=== PATIENT | male | born 1970 | race African-American/Black ===

== ENCOUNTER 2020-06-14 11:03 | Outpatient (REF) | payer OTHER, SELFPAY ==
[2020-06-14 12:40] LABS: MANUAL DIFF FLAG NO
[2020-06-14 12:48] LABS: Basophils Percent Auto 0.8 % (0-2); Eosinophils Absolute Auto 0.1 X10*3/uL (0.0-0.4); Eosinophils Percent Auto 1.2 % (0-4); Hematocrit 43.4 % (42-52); Hemoglobin 14.1 g/dl (14.0-18.0); Imm Gran Abs Auto 0.01 X10*3/uL (0.00-0.03); Imm Gran Pct Auto 0.2 % (0.0-0.4); Lymphocytes Absolute Auto 2.4 X10*3/uL (1.2-4.9); Mean Corpuscular HGB Conc 32.5 g/dl (31.0-36.0); Mean Corpuscular Hemoglobin 28.4 pg (27.0-33.0); Mean Corpuscular Volume 87.3 fL (80-98); Mean Platelet Volume 10.7 fL (9.4-12.4); Monocytes Absolute Auto 0.5 X10*3/uL (0.1-1.2); Monocytes Percent Auto 9.4 % (2-11); Neutrophils Absolute Auto 2.1 X10*3/uL (2.0-8.3); Neutrophils Percent Auto 40.4 % (45-73); Platelet Count 295 X10*3/uL (160-400); Red Blood Count 4.97 X10*6/uL (4.60-5.80); Red Cell Distribution Width 12.6 % (11.0-16.0); White Blood Count 5.1 X10*3/uL (4.8-10.8)
[2020-06-14 13:02] LABS: Estimated Average Glucose 237 mg/dL; Hemoglobin A1c % 9.9 %
[2020-06-14 13:30] LABS: Anion Gap 11 (12-20); Blood Urea Nitrogen 12 mg/dL (9-16); Calcium 9.4 mg/dL (8.4-10.2); Carbon Dioxide 31 mmol/L (22-29); Chloride 101 mmol/L (96-108); Cholesterol 206 mg/dL; Estimated Glomerular Filt Rate 57; Glucose Fasting 92 mg/dL (60-99); HDL Cholesterol 43 mg/dL; LDL Cholesterol Calculated 137 mg/dl; Potassium 4.1 mmol/l (3.3-5.1); Sodium 139 mmol/L (135-145); Triglycerides 132 mg/dL
[2020-06-14 13:41] LABS: TSH reflex Free T4 1.28 mIU/mL (0.32-4.0)
== END 2020-06-14 11:04 | disposition home or self-care (01) ==
LOC: HO.LAB 11:03
PROVIDERS: PCP Nurse Practitioner Family; Visit Provider Nurse Practitioner Family
DX: G47.30 Sleep apnea, unspecified (principal); E11.9 Type 2 diabetes mellitus without complications; Z83.42 Family history of familial hypercholesterolemia; Z83.49 Family history of other endocrine, nutritional and metabolic diseases
CPT/HCPCS: 36415; 80048; 80061; 83036; 84443; 85025

== ENCOUNTER 2020-09-17 11:37 | Outpatient (REF) | payer OTHER, SELFPAY ==
[2020-09-17 13:54] LABS: Basophils Absolute Auto 0.1 X10*3/uL (0.0-0.2); Eosinophils Percent Auto 0.6 % (0-4); Hematocrit 45.7 % (42-52); Hemoglobin 15.4 g/dl (14.0-18.0); Imm Gran Abs Auto 0.01 X10*3/uL (0.00-0.03); Imm Gran Pct Auto 0.2 % (0.0-0.4); Lymphocytes Absolute Auto 2.4 X10*3/uL (1.2-4.9); Lymphocytes Percent Auto 49.2 % (20-40); MANUAL DIFF FLAG NO; Mean Corpuscular HGB Conc 33.7 g/dl (31.0-36.0); Mean Corpuscular Hemoglobin 28.2 pg (27.0-33.0); Mean Corpuscular Volume 83.7 fL (80-98); Mean Platelet Volume 12.5 fL (9.4-12.4); Monocytes Absolute Auto 0.4 X10*3/uL (0.1-1.2); Monocytes Percent Auto 7.5 % (2-11); Neutrophils Percent Auto 41.5 % (45-73); Platelet Count 267 X10*3/uL (160-400); Red Blood Count 5.46 X10*6/uL (4.60-5.80); White Blood Count 4.9 X10*3/uL (4.8-10.8)
[2020-09-17 14:38] LABS: Creatinine Urine 52.13 mg/dL; Microalbum/Creatinine Ratio Ur 15.3 ug/mg cr
[2020-09-17 15:05] LABS: Anion Gap 14 (12-20); Carbon Dioxide 28 mmol/L (22-29); Chloride 97 mmol/L (96-108); Potassium 4.8 mmol/L (3.3-5.1); Sodium 134 mmol/L (135-145)
[2020-09-17 15:06] LABS: Alanine Aminotransferase 21 U/L (0-40); Albumin Level 4.4 g/dL (3.5-5.0); Alkaline Phosphatase 140 U/L (39-117); Aspartate Amino Transferase 14 U/L (5-37); Bilirubin Total 0.4 mg/dL (0.0-1.0); Blood Urea Nitrogen 18 mg/dL (9-16); Calcium 10.2 mg/dL (8.4-10.2); Cholesterol 331 mg/dL; Estimated Glomerular Filt Rate 49; HDL Cholesterol 35 mg/dL; LDL Cholesterol Calculated 226 mg/dl; Total Protein 8.3 g/dL (6.5-8.0); Triglycerides 352 mg/dL
[2020-09-17 15:14] LABS: Hemoglobin A1c % > 14.0 %
[2020-09-17 15:25] LABS: Glucose Fasting 502 mg/dL (60-99)
== END 2020-09-17 11:38 | disposition home or self-care (01) ==
LOC: HO.HMGCLDS 11:37
PROVIDERS: PCP Internal Medicine; Visit Provider Internal Medicine
DX: Z00.00 Encounter for general adult medical examination without abnormal findings (principal); E11.9 Type 2 diabetes mellitus without complications
CPT/HCPCS: 36415; 80053; 80061; 82043; 83036; 85025

== ENCOUNTER → 2020-09-25 13:56 | Outpatient (BNVA) | payer OTHER, SELFPAY | PROVIDERS: Visit Provider Nurse Practitioner Family ==

== ENCOUNTER 2020-11-19 14:22 | Outpatient (REF) | payer OTHER, SELFPAY ==
[2020-11-19 15:38] LABS: Estimated Average Glucose 301 mg/dL; Hemoglobin A1c % 12.1 %
[2020-11-19 15:44] LABS: Anion Gap 15 (12-20); Blood Urea Nitrogen 12 mg/dL (9-16); Calcium 10.1 mg/dL (8.4-10.2); Carbon Dioxide 27 mmol/L (22-29); Chloride 101 mmol/L (96-108); Estimated Glomerular Filt Rate 54; Glucose Fasting 172 mg/dL (60-99); Potassium 4.4 mmol/L (3.3-5.1); Sodium 139 mmol/L (135-145)
== END 2020-11-19 14:23 | disposition home or self-care (01) ==
LOC: HO.LAB 14:22
PROVIDERS: PCP Internal Medicine; Visit Provider Internal Medicine
DX: E11.9 Type 2 diabetes mellitus without complications (principal)
CPT/HCPCS: 36415; 80048; 83036

== ENCOUNTER → 2020-11-28 10:17 | Outpatient (BNVA) | payer OTHER, SELFPAY | PROVIDERS: PCP Internal Medicine; Visit Provider Internal Medicine ==

== ENCOUNTER 2020-11-30 11:12 | Day surgery (SDC) | payer OTHER, SELFPAY ==
[2020-11-13 14:41] VITALS: BMI 40.3
--- NOTE | 2020-11-29 09:54 | P.CONAN_ITS ---
Documented by User: Lexi Osorio 11/29/20 09:55 HPI - Anesthesia Eval Consult details Narrative: 50yo M for Upper Endoscopy and Colonoscopy [facility] Active Problems Active Problems: All Active Problems (Updated 11/28/20 @ 11:03 by Karen Perera DO) Vitamin D deficiency (Acute) HLD (hyperlipidemia) (Acute) HTN (hypertension) (Acute) T2DM (type 2 diabetes mellitus) (Acute) Diabetes mellitus (Acute) Sleep apnea syndrome (Acute) Family history of thyroid disease (Acute) Family history of high cholesterol (Acute) Skin rash (Acute) Diabetes (Acute) Past Medical History Medical History Diabetes Diabetes mellitus Family history of high cholesterol Family history of thyroid disease HLD (hyperlipidemia) HTN (hypertension) HTN (hypertension) Hx of bipolar disorder Skin rash Sleep apnea syndrome T2DM (type 2 diabetes mellitus) Vitamin D deficiency Family History Family History Mother Diabetic acidosis, type II Father Diabetic acidosis, type II Surgical History Surgical History Hx of circumcision Hx of exploratory laparotomy Social History Social History Are you a primary career coordinator to a significant other at home: No Do you presently have visiting nurse or other home services: Yes Alcohol intake: unknown Smoking Status: Current every day smoker Tobacco Type: Cigarette Cigarettes Per Day: 10 Years Smoked: 30 Use of substances other than those prescribed or required for medical reasons: No Have you been hit, kicked, punched, or otherwise hurt by someone within the past year? If so, by whom?: No Are you DNR?: No Advance Directives Information Provided: No Recently lost weight without trying: No Eating poorly because of decreased appetite: No Nutrition Risks: No Nutritional Risk Poor oral hygiene: No Current occupational status: unemployed Meds Allergies Allergy/AdvReac Type Severity Reaction Status Date / Time No Known Allergies Allergy Verified 11/28/20 10:40 Active Medications: Current Medications Generic Name Dose Route Start Last Admin Trade Name Freq PRN Reason Stop Dose Admin Lactated Ringer's 1,000 mls @ 50 mls/hr 11/15/20 07:30 Lr IV .Q20H [facility] Home Medications Medication Instructions Recorded Confirmed Last Taken Type acetaminophen 650 mg 650 mg PO Q8H tab 06/14/20 11/28/20 Unknown History tablet,extended release blood glucose control, low #1 ea 06/14/20 09/26/20 Unknown History docusate sodium 100 mg capsule 100 mg PO BID PRN 06/14/20 11/28/20 Unknown History hydroxyzine HCl 50 mg tablet 50 mg PO Q4H tab 06/14/20 11/28/20 Unknown History ibuprofen 600 mg tablet 600 mg PO Q6H PRN 06/14/20 11/28/20 Unknown History magnesium hydroxide 2,400 mg/10 mL 5 ml PO DAILY PRN 06/14/20 11/28/20 Unknown History oral suspension melatonin 5 mg capsule 5 mg PO BEDTIME cap 06/14/20 11/28/20 Unknown History multivitamin with minerals 1 tab PO DAILY 06/14/20 11/28/20 Unknown History naloxone 4 mg/actuation nasal spray 4 mg INTRANASAL . NEEDED PRN ea 06/14/20 11/28/20 Unknown History risperidone 1 mg tablet 1 mg PO BID 06/14/20 11/28/20 Unknown History sertraline 100 mg tablet 100 mg PO DAILY 06/14/20 11/28/20 11/30/20 History trazodone 100 mg tablet 150 mg PO BEDTIME PRN 10/04/20 11/28/20 Unknown History benztropine 0.5 mg tablet 0.5 mg PO DAILY PRN 11/28/20 11/28/20 Unknown History guaifenesin 200 mg/5 mL oral liquid 200 mg PO Q4H PRN 11/28/20 11/28/20 Unknown History Exam Exam Date and Time: November 29, 2020 0954 Height,Weight and Vital Signs: Height 5 ft 8 in Weight 120.202 kg Pertinent Lab Results Pertinent Lab Results: Laboratory Tests 09/17/20 11/19/20 11:45 14:32 WBC 4.9 Hgb 15.4 Hct 45.7 Plt Count 267 Sodium 139 Potassium 4.4 Chloride 101 Carbon Dioxide 27 BUN 12 Creatinine 1.38 Assessment and Plan Assessment Anesthesia Assessment: Chart Reviewed Documented by User: Addie Muñoz 11/30/20 12:19 [facility] Past Medical History Medical History Diabetes Diabetes mellitus Family history of high cholesterol Family history of thyroid disease HLD (hyperlipidemia) HTN (hypertension) HTN (hypertension) Hx of bipolar disorder Skin rash Sleep apnea syndrome T2DM (type 2 diabetes mellitus) Vitamin D deficiency Family History Family History Mother Diabetic acidosis, type II Father Diabetic acidosis, type II Surgical History Surgical History Hx of circumcision Hx of exploratory laparotomy Social History Social History Are you a primary career coordinator to a significant other at home: No Do you presently have visiting nurse or other home services: Yes Alcohol intake: unknown Smoking Status: Current every day smoker Tobacco Type: Cigarette Cigarettes Per Day: 10 Years Smoked: 30 Use of substances other than those prescribed or required for medical reasons: No Have you been hit, kicked, punched, or otherwise hurt by someone within the past year? If so, by whom?: No Are you DNR?: No Advance Directives Information Provided: No Recently lost weight without trying: No Eating poorly because of decreased appetite: No Nutrition Risks: No Nutritional Risk Poor oral hygiene: No Current occupational status: unemployed Meds Allergies Allergy/AdvReac Type Severity Reaction Status Date / Time No Known Allergies Allergy Verified 11/28/20 10:40 Home Medications Medication Instructions Recorded Confirmed Last Taken Type acetaminophen 650 mg 650 mg PO Q8H tab 06/14/20 11/28/20 Unknown History tablet,extended release blood glucose control, low #1 ea 06/14/20 09/26/20 Unknown History docusate sodium 100 mg capsule 100 mg PO BID PRN 06/14/20 11/28/20 Unknown History hydroxyzine HCl 50 mg tablet 50 mg PO Q4H tab 06/14/20 11/28/20 Unknown History ibuprofen 600 mg tablet 600 mg PO Q6H PRN 06/14/20 11/28/20 Unknown History magnesium hydroxide 2,400 mg/10 mL 5 ml PO DAILY PRN 06/14/20 11/28/20 Unknown History oral suspension melatonin 5 mg capsule 5 mg PO BEDTIME cap 06/14/20 11/28/20 Unknown History multivitamin with minerals 1 tab PO DAILY 06/14/20 11/28/20 Unknown History naloxone 4 mg/actuation nasal spray 4 mg INTRANASAL . NEEDED PRN ea 06/14/20 11/28/20 Unknown History risperidone 1 mg tablet 1 mg PO BID 06/14/20 11/28/20 Unknown History sertraline 100 mg tablet 100 mg PO DAILY 06/14/20 11/28/20 11/30/20 History trazodone 100 mg tablet 150 mg PO BEDTIME PRN 10/04/20 11/28/20 Unknown History benztropine 0.5 mg tablet 0.5 mg PO DAILY PRN 11/28/20 11/28/20 Unknown History guaifenesin 200 mg/5 mL oral liquid 200 mg PO Q4H PRN 11/28/20 11/28/20 Unknown History Exam Airway Mallampati Class: III (Full goyal) TM Dist: >3cm Neck ROM: Full Loose/Missing/Broken Teeth: No Heart: RRR Lungs: CTA Assessment and Plan Assessment Anesthesia Assessment: Anesthesia Plan Discussed and Chart Reviewed Final Anesthetic Review NPO: Yes ASA Class: III Final Preanesthetic Review: Meds/Allgs Chart Reviewed, Consent Obtained/Reviewed and Anes Risks/Benef Reviewed Patient Risk: Intermediate Procedure Risk: Intermediate Anesthetic Plan Anesthetic Plan: MAC: Disposition: Standard PACU
[2020-11-30 11:14] VITALS: BP 104/67; PULSE 73; RESP 20; TEMP 36.1; O2SAT 97
[2020-11-30 11:26] LABS: Glucose, Whole Blood 92 mg/dL (60-115)
[2020-11-30] MEDS: Lactated Ringers 1,000 ML 50 ML IV (11:37)
--- NOTE | 2020-11-30 12:38 | P.OP_ITS ---
Operative Note Operative Note Date of Service: 11/30/20 Narrative: Pre-op diagnosis: Colon cancer screening, GERD, dyspepsia Post-op diagnosis: other (GERD, Gastritis, Poor colon prep.) Procedure: FLEXIBLE TRANSORAL UPPER GASTROINTESTINAL ENDOSCOPY WITH BIOPSIES AND INCOMPLETE COLONOSCOPY TILL MID TRANSVERSE COLON UPPER ENDOSCOPY Consent: Indications for the procedure and potential complications of bleeding, perforation, reaction to medications and missed diagnosis were discussed with the patient and informed consent was obtained. Instrument: Olympus GIF H 190 mid size upper endoscope Monitoring: Vital signs and clinical assessment, continuous EKG monitoring, Pulse oximetry, Carbon Dioxide monitoring and blood pressure monitoring were done throughout the procedure. Procedure: The patient was placed in the left lateral decubitis position and pre-procedure medications were administered and a bite block was placed. The endoscope was inserted into the mouth and advanced under direct vision to the third part of duodenum. A careful inspection was made as the upper endoscope was withdrawn including a retroflexed examination of the proximal stomach; Findings and interventions are described below. Findings: Larynx: Normal Esophagus: GE junction at 40 cms. Irregular Z line - biopsied to check for Berrios's. Stomach: Moderate diffuse gastric erythema. Biopsies were obtained from the antrum and body of the stomach. Grade 2 flap valve on retroflexed examination of the cardia. Duodenum: Normal bulb and descending duodenum. Biopsies obtained from the 3rd part of duodenum Intervention: Biopsies as noted above COLONOSCOPY PROCEDURE NOTE Consent: Indications for the procedure and potential complications of bleeding, perforation, reaction to medications and missed diagnosis were discussed with the patient and informed consent was obtained. Instrument: Olympus PCF H 190 L variable stiffness pediatric colonoscope Monitoring: Vital signs and clinical assessment, intermittent blood pressure monitoring, continuous EKG monitoring, Pulse oximetry and Carbon Dioxide monitoring were done throughout the procedure. Procedure: The patient was placed in the left lateral decubitis position and pre-procedure medications were administered. After a digital rectal examination of the ano-rectum, the video colonoscope was inserted into the rectum and advanced through the colon to the cecum. The colonoscope was slowly withdrawn in a retrograde panoramic fashion and the colon mucosa was carefully examined including a retroflexed view of the rectum. Findings and interventions are described below. Procedure Difficulty: : Colon was long and tortuous and there was recurrent formation. LLQ pressure was applied to intubate the ascending colon. It was not possible to advanced further due to looping and poor colon prep Findings: Terminal Ileum: Not evaluated Cecum: Not evaluated Ascending Colon: Not evaluated Transverse Colon: Partially evaluated due to suboptimal prep Descending Colon: Partially evaluated due to suboptimal prep Sigmoid Colon: Partially evaluated due to suboptimal prep Rectum: Partially evaluated due to suboptimal prep Colon preparation: poor Impression and Post Procedure Diagnosis: Endoscopy Findings: ESOPHAGUS: Irregular Z line - biopsied to check for Berrios's. STOMACH: Gastritis DUODENUM: Normal - biopsied to check for celiac sprue Colonoscopy Findings: Incomplete colonoscopy till mid transverse colon. Colon was partially evaluated due to suboptimal prep despite copious irrigation. Plan: Await pathology results Patient has an appointment on in the GI Clinic with Daniella Murillo FNP- [facility] . Repeat Colonoscopy in 4 to 6 months with 2 day prep (adult colonoscope for future colonoscopy) versus stool FIT test and if negative, repeat colonoscopy in 5 years. Above findings were reviewed with the patient and GERD and Gastritis handouts were given in the discharge area Surgeon: Tatum Harrison MD Anesthesia: MAC (Montse Currie CRNA) Was an Tip Banding Machine Operator used for this Procedure?: No Tip Banding Machine Operator: Duarte Grewal Estimated blood loss (mL): 0 Pathology: other (A- SMALL BOWEL BXS R/O CELIAC B- GASTRIC ANTRUM BXS C- GASTRIC BODY BXS D- DISTAL ESOPHAGUS BXS R/O BERRIOS'S) Condition: stable Disposition: PACU
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
[2020-11-30 13:37] VITALS: BP 93/73; PULSE 78; RESP 14; TEMP 36.4; O2SAT 98
[2020-11-30 13:52] VITALS: BP 115/77; PULSE 80; RESP 18; TEMP 36.4; O2SAT 97
== END 2020-11-30 14:16 ==
LOC: HO.SSS 11:12
PROVIDERS: PCP Internal Medicine; Visit Provider Internal Medicine Gastroenterology
PROC: (CPT 45378; principal; 2020-11-30 12:40)
DX: Z12.11 Encounter for screening for malignant neoplasm of colon (principal); K56.2 Volvulus; K21.9 Gastro-esophageal reflux disease without esophagitis; K29.50 Unspecified chronic gastritis without bleeding; B96.81 Helicobacter pylori [H. pylori] as the cause of diseases classified elsewhere; K22.8 Other specified diseases of esophagus; Z87.828 Personal history of other (healed) physical injury and trauma; F31.9 Bipolar disorder, unspecified; I10 Essential (primary) hypertension; G47.33 Obstructive sleep apnea (adult) (pediatric); E11.9 Type 2 diabetes mellitus without complications; Z79.4 Long term (current) use of insulin; Z99.89 Dependence on other enabling machines and devices; Z79.899 Other long term (current) drug therapy; F17.210 Nicotine dependence, cigarettes, uncomplicated
CPT/HCPCS: 45378; 43239; 82947; 88305; 88342; J2405; J3010

== ENCOUNTER 2020-12-04 09:43 | Outpatient (REF) | payer OTHER, SELFPAY ==
[2020-12-04 11:06] LABS: Alanine Aminotransferase 25 U/L (0-40); Albumin Level 4.3 g/dL (3.5-5.0); Alkaline Phosphatase 139 U/L (39-117); Anion Gap 15 (12-20); Aspartate Amino Transferase 20 U/L (5-37); Bilirubin Total 0.5 mg/dL (0.0-1.0); Blood Urea Nitrogen 12 mg/dL (9-16); Carbon Dioxide 28 mmol/L (22-29); Chloride 102 mmol/L (96-108); Cholesterol 189 mg/dL; Estimated Glomerular Filt Rate > 60; Glucose Random 97 mg/dL (60-115); HDL Cholesterol 44 mg/dL; LDL Cholesterol Calculated 120 mg/dl; Potassium 4.8 mmol/L (3.3-5.1); Sodium 140 mmol/L (135-145); Total Protein 7.8 g/dL (6.5-8.0); Triglycerides 129 mg/dL
[2020-12-04 11:28] LABS: Vitamin D 25-OH Total 28.4 ng/mL (>30)
[2020-12-04 11:54] LABS: Microalbum/Creatinine Ratio Ur 3.7 ug/mg cr
[2020-12-05 07:55] LABS: HIV AB/AG Nonreactive (Nonreactive); HIV Num 1 0.04 S/CO (0.00-0.99)
[2020-12-05 12:44] LABS: LDL Cholesterol Direct 105 mg/dL (<100)
== END 2020-12-04 09:44 | disposition home or self-care (01) ==
LOC: HO.LAB 09:43
PROVIDERS: Absent Provider Internal Medicine; PCP Internal Medicine; Visit Provider Internal Medicine
DX: E11.65 Type 2 diabetes mellitus with hyperglycemia (principal); Z79.4 Long term (current) use of insulin; E55.9 Vitamin D deficiency, unspecified; Z20.2 Contact with and (suspected) exposure to infections with a predominantly sexual mode of transmission
CPT/HCPCS: 36415; 80053; 80061; 82043; 82306; 83721; 87389

== ENCOUNTER → 2021-01-07 09:56 | Outpatient (BNVA) | payer OTHER, SELFPAY | PROVIDERS: PCP Internal Medicine; Visit Provider Nurse Practitioner Family | DX: K59.00 Constipation, unspecified (principal); K21.9 Gastro-esophageal reflux disease without esophagitis; Z98.890 Other specified postprocedural states; Z79.899 Other long term (current) drug therapy | CPT/HCPCS: 99212 ==

== ENCOUNTER → 2021-01-24 11:12 | Outpatient (BNVA) | payer OTHER, SELFPAY | PROVIDERS: PCP Internal Medicine; Visit Provider Dietitian, Registered | DX: E11.65 Type 2 diabetes mellitus with hyperglycemia (principal); Z79.4 Long term (current) use of insulin | CPT/HCPCS: 97802 ==

== ENCOUNTER 2021-01-30 09:25 | Outpatient (REF) | payer OTHER, SELFPAY ==
--- NOTE | ~2021-01-30 | XR_ITS ---
EXAMINATION: XR KNEE, RIGHT XR KNEE, LEFT CLINICAL INFORMATION: Right knee pain. COMPARISON: None TECHNIQUE: AP standing views of both knees. [place] and lateral views of both knees. FINDINGS: RIGHT KNEE: There is no evidence of acute fracture or dislocation of the right knee. There is crescent-shaped ossification about the medial femoral condyle consistent with previous medial collateral ligament injury. Joint spaces are maintained. No significant effusion is appreciated. There is some spurring about the anterior tuberosity of the tibia without associated soft tissue swelling consistent with sequela of [place]-Schlatter disease. There is minimal spurring about the lateral facet of the patella. LEFT KNEE: Left knee joint spaces are maintained. No acute fracture or dislocation is evident. No significant effusion is seen. Sequela of [place]-Schlatter disease seen without overlying soft tissue swelling. There is some mild spurring lateral facet of the patella. XR/XR knee RT 2V IMPRESSION: Mild degenerative change patellofemoral joints bilaterally. Sequela of previous right medial collateral ligament injury.
--- NOTE | ~2021-01-30 | XR_ITS ---
EXAMINATION: XR KNEE, RIGHT XR KNEE, LEFT CLINICAL INFORMATION: Right knee pain. COMPARISON: None TECHNIQUE: AP standing views of both knees. [place] and lateral views of both knees. FINDINGS: RIGHT KNEE: There is no evidence of acute fracture or dislocation of the right knee. There is crescent-shaped ossification about the medial femoral condyle consistent with previous medial collateral ligament injury. Joint spaces are maintained. No significant effusion is appreciated. There is some spurring about the anterior tuberosity of the tibia without associated soft tissue swelling consistent with sequela of [place]-Schlatter disease. There is minimal spurring about the lateral facet of the patella. LEFT KNEE: Left knee joint spaces are maintained. No acute fracture or dislocation is evident. No significant effusion is seen. Sequela of [place]-Schlatter disease seen without overlying soft tissue swelling. There is some mild spurring lateral facet of the patella. XR/XR knee LT 2V IMPRESSION: Mild degenerative change patellofemoral joints bilaterally. Sequela of previous right medial collateral ligament injury.
--- NOTE | ~2021-01-30 | XR_ITS ---
EXAMINATION: XR KNEE, RIGHT XR KNEE, LEFT CLINICAL INFORMATION: Right knee pain. COMPARISON: None TECHNIQUE: AP standing views of both knees. [place] and lateral views of both knees. FINDINGS: RIGHT KNEE: There is no evidence of acute fracture or dislocation of the right knee. There is crescent-shaped ossification about the medial femoral condyle consistent with previous medial collateral ligament injury. Joint spaces are maintained. No significant effusion is appreciated. There is some spurring about the anterior tuberosity of the tibia without associated soft tissue swelling consistent with sequela of [place]-Schlatter disease. There is minimal spurring about the lateral facet of the patella. LEFT KNEE: Left knee joint spaces are maintained. No acute fracture or dislocation is evident. No significant effusion is seen. Sequela of [place]-Schlatter disease seen without overlying soft tissue swelling. There is some mild spurring lateral facet of the patella. XR/XR knee standing BI IMPRESSION: Mild degenerative change patellofemoral joints bilaterally. Sequela of previous right medial collateral ligament injury.
== END 2021-01-30 09:26 | disposition home or self-care (01) ==
LOC: HO.HOSX 09:25
PROVIDERS: Visit Provider Orthopaedic Surgery
DX: M22.2X1 Patellofemoral disorders, right knee (principal); M22.2X2 Patellofemoral disorders, left knee
CPT/HCPCS: 73560; 73565; 99202

== ENCOUNTER 2021-08-10 13:27 | Emergency (ER) | payer OTHER, SELFPAY ==
--- NOTE | ~2021-08-10 | XR_ITS ---
EXAMINATION: XR CHEST CLINICAL INFORMATION: SOB and cough COMPARISON: None TECHNIQUE: Frontal view of the chest was obtained. FINDINGS: No significant abnormality is noted involving the heart, lungs, mediastinum, bony thorax or soft tissues. XR/XR chest 1V IMPRESSION: Unremarkable chest examination.
[2021-08-10 13:48] VITALS: BP 113/76; BP 136/86; PULSE 100; PULSE 91; RESP 18; TEMP 36.8; O2SAT 98; BMI 38.0
[2021-08-10 14:06] LABS: COVID-19 Test Positive (Negative); IDNOW Serial# 9DD0AD1C
--- NOTE | 2021-08-10 15:48 | ED_ITS ---
HPI - URI/Sore Throat General Chief Complaint: Upper Respiratory Symptoms Stated Complaint: COVID SX'S Time Seen by Provider: 08/10/21 15:48 Source: patient Mode of arrival: ambulatory Limitations: no limitations History of Present Illness HPI Narrative: This is a 51-year-old male phx HTN, DM, obseity, presenting to the emergency department with complaints of cough, fever, malaise, body aches x4 days. Patient tells me that he is coughing up a thick green/yellow sputum. He is not vaccinated against COVID-19 he tells me I do not believe in the government . He denies any sick contacts. He is also requesting to get treated for chlamydia/gonorrhea prophylactically as 1 of his partners tested positive and was treated. He denies any penile discharge, fevers, chills, nausea, vomiting, chest pain, shortness of breath. Patient tells me his main concern today is his cough. MD elicited complaint: fever and cough Onset (ago): day(s) (4) Consistency: constant Severity: moderate Description of mucous: yellow and green Able to tolerate fluids by mouth: Yes Exacerbating factors: nothing Relieving factors: nothing Associated symptoms: denies other symptoms Treatments prior to arrival: none Related Data Home Medications Medication Instructions Recorded Confirmed acetaminophen 650 mg 650 mg PO Q8H tab 06/14/20 02/19/21 tablet,extended release blood glucose control, low #1 ea 06/14/20 02/19/21 ibuprofen 600 mg tablet 600 mg PO Q6H PRN 06/14/20 02/19/21 magnesium hydroxide 2,400 mg/10 mL 5 ml PO DAILY PRN 06/14/20 02/19/21 oral suspension (Milk Of Magnesia Concentrated) melatonin 5 mg capsule 5 mg PO BEDTIME cap 06/14/20 02/19/21 multivitamin with minerals 1 tab PO DAILY 06/14/20 02/19/21 risperidone 1 mg tablet (Risperdal) 1 mg PO BID 06/14/20 02/19/21 benztropine 0.5 mg tablet 0.5 mg PO DAILY PRN 11/28/20 02/19/21 guaifenesin 200 mg/5 mL oral liquid 200 mg PO Q4H PRN 11/28/20 02/19/21 diphenhydramine HCl 50 mg capsule 50 mg PO BEDTIME PRN 12/04/20 02/19/21 risperidone 2 mg tablet mg PO 12/04/20 02/19/21 varenicline 0.5 mg (11)-1 mg (42) 0 ea PO 01/07/21 02/19/21 tablets in a dose pack Previous Rx's Medication Instructions Recorded triamcinolone acetonide 0.1 % 1 appl TOPICAL BID 30 Days #30 g 09/27/20 topical cream atorvastatin 40 mg tablet 40 mg PO DAILY 30 Days #30 tab 11/28/20 flash glucose scanning reader #1 ea 11/28/20 (FreeStyle Antonia 2 [place]) flash glucose sensor (FreeStyle #2 ea 11/28/20 Antonia 2 Sensor) omeprazole 20 mg capsule,delayed 20 mg PO BID 10 Days #20 cap 12/03/20 release docusate sodium 100 mg capsule 100 mg PO BID PRN #60 cap 01/07/21 (Colace) sennosides 8.6 mg tablet (Natural 8.6 mg PO BEDTIME PRN #30 tab 01/07/21 Senna Laxative) betamethasone dipropionate 0.05 % 1 appl TOPICAL BID PRN #45 g 01/17/21 topical cream metformin 500 mg tablet,extended 500 mg PO BID 30 Days #60 tab 01/27/21 release 24 hr diclofenac sodium 75 mg 75 mg PO BID #60 tab 01/30/21 tablet,delayed release dulaglutide 0.75 mg/0.5 mL 0.75 mg (0.5 mL) SUBCUT QWEEK 28 02/21/21 subcutaneous pen injector Days #2 ml (Trulicity) amlodipine 5 mg tablet 5 mg PO DAILY #30 tab 03/06/21 trazodone 100 mg tablet 150 mg PO BEDTIME PRN #90 tab 04/23/21 insulin glargine 100 unit/mL (3 20 unit (0.2 mL) SUBCUT QPM #15 ml 05/06/21 mL) subcutaneous pen (Lantus Solostar U-100 Insulin) sertraline 100 mg tablet (Zoloft) 100 mg PO DAILY #90 tab 05/06/21 pen needle, diabetic 31 gauge x #100 ea 07/08/2112/09 (1st Tier Unifine Pentips) blood sugar diagnostic (FreeStyle #100 ea 08/01/21 Lite Strips) albuterol sulfate 90 mcg/actuation 2 inh INHALATION Q4-6H PRN #1 ea 08/10/21 breath activated powder inhaler doxycycline hyclate 100 mg tablet 100 mg PO BID 10 Days #20 tab 08/10/21 metronidazole 500 mg tablet 500 mg PO BID 7 Days #14 tab 08/10/21 Allergies Allergy/AdvReac Type Severity Reaction Status Date / Time No Known Allergies Allergy Verified 01/17/21 09:22 Review of Systems Review of Systems: Constitutional : positive Fever, positive Chills, positive fatigue, positive Malaise ENT/Mouth : positive sore throat, No runny nose Eyes: No Discharge Cardiovascular : No Chest Pain, No SOB Respiratory : + Cough, + Sputum Gastrointestinal : No Nausea, No Vomiting, No Diarrhea Genitourinary : No Dysuria, No Urinary Frequency Musculoskeletal : positive Myalgia Skin : No rash Neuro : No Headache Yes all other systems are reviewed and are negative PMFSH Past Medical History Attestation statement: The following information was validated with the patient. Source: old records reviewed and nursing notes reviewed Medical History Cataract Depression Diabetes Diabetes mellitus Family history of high cholesterol Family history of thyroid disease HLD (hyperlipidemia) HTN (hypertension) HTN (hypertension) Hx of bipolar disorder Obesity Skin rash Sleep apnea syndrome T2DM (type 2 diabetes mellitus) Vitamin D deficiency Surgical History Hx of circumcision Hx of exploratory laparotomy Family History Family History Mother Diabetic acidosis, type II Father Diabetic acidosis, type II Social History Social History Housing: Apartment Are you a primary customer care coordinator to a significant other at home: No Do you presently have visiting nurse or other home services: Yes Alcohol intake: never Patient Tobacco Use Status: Current everyday Tobacco user Tobacco use type: Cigarette Cigarettes Per Day: 6 Years Smoked: 30 e-Cigarette/Vaping Use: Never Used Second Hand Smoke Exposure: No Advance Directives: No Advance Directives Information Provided: No service: No Current occupational status: unemployed Current occupation: right handed Physical Exam Vital Signs: Vital Signs: Last Vital Signs Temp 98.3 F 08/10/21 13:48 Pulse 91 08/10/21 13:48 Resp 18 08/10/21 13:48 BP 113/76 08/10/21 13:48 Pulse Ox 98 08/10/21 13:48 BMI result Body Mass Index 38.0 VSS Appearance: Alert.? Oriented X3.? No acute distress.? Head: Normocephalic, atraumatic, no step-offs or deformities Eyes: Pupils equal, round and reactive to light.?? Neck: Normal inspection.? Neck supple.? CVS: Normal heart rate and rhythm.? Pulses normal.? Respiratory: No respiratory distress.? Breath sounds normal.? Abdomen: Soft and nontender.? Skin: Skin warm and dry.? Normal skin color.? Normal skin turgor.? Extremities: No lower extremity edema.? No calf ttp. 5/5 strength to bilateral upper and lower extremities Neuro: Oriented X 3.? No motor deficit.? No sensory deficit. Course Reevaluation(s) Reevaluation #1: Patient has been given 1st dose of doxycycline, and his 500 mg injection of ceftriaxone. Educated on safe sex, diagnosis and treatment. I advised him to wear protection, our practice abstinence for the meantime. Gave him information about tapestry Patient is noted to be COVID positive.? Vital signs are stable however.? I have given patient strict return precautions.? I have educated on diagnosis and treatment plan.? I have given them red flag symptoms and have told him to return with new or worsening symptoms.? I have outlined these on their discharge. Unlikely that this is ACS, patient denies chest pain. Lungs are clear unlikely pneumonia. Patient's vital signs stable, patient is not tachycardic, tachypneic or hypoxic, no calf tenderness to palpation, unlikely PE. Time: 15:48 MDM - URI/Sore Throat MDM Narrative Medical decision making narrative: 1553 51-year-old male presents to the emergency department with COVID like symptoms x4 days. Not vaccinated. No known sick contacts. Would also like prophylactic treatment for gonorrhea and chlamydia since his partner tested positive Physical examination benign Plan COVID test Medical Records Attestation: I reviewed the patient's medical records. Lab Data Attestation: I reviewed the patient's lab results. Labs: Lab Results 08/10/21 Range/Units 13:47 COVID-19 (JACOB) Positive A (Negative) COVID-19 Clin Com See Note Critical Care Time Critical Care Time Critical Care Time: No Discharge Plan Discharge Clinical Impression: COVID, Exposure to STD Patient Disposition: Home, Self-Care Instructions: COVID-19 (Coronavirus Disease 2019) (ED) Additional Instructions: Take your medications as prescribed.? If you were prescribed antibiotics today, it is important that you take your medication to their entirety, do not skip any doses, do not finish them early. 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 Return to the emergency department with new or worsening symptoms. In case of emergency call 911? Please refrain from sexual intercourse until your antibiotic treatment is complete and you have got and retested to ensure that the infection has cleared. Laboratory confirmation has been sent to the lab and is pending, you will be called if results are positive. However since he had an exposure please take full course of antibiotics. Information on Tapestry has been given to you. Please use protecion. You were prophylactically treated for gonorrhea in the emergency department. Medications to treat for Trichomonas and chlamydia were sent to your pharmacy You tested positive for COVID-19 today. -Isolate/quarantine for 5 days, continue wearing a mask for 5 days after.Before leaving quarantine ensure you are fever free and symptom free for at least 72 hours. Stay home, social distance, clean all surfaces. If you experience chest pain, shortness of breath, weakness, high fevers/chills, headache or dizziness please go to an emergency department for evaluation. - You can purchase a pulse oximeter at a local pharmacy or grocery store to check your oxygen levels at home if they go below 94%? please go to the emergency department or see a medical professional. Drink plenty of fluids, and rest. - If you can tolerate these medications, and if you are not allergic to them or have any contraindications to taking them you can take ibuprofen every 6 hours, tylenol every 4 as needed for body aches/fever. -Call 911 in case of an emergency, or go to an emergency department. -Stay safe! Prescriptions: New doxycycline hyclate 100 mg tablet 100 mg PO BID 10 Days Qty: 20 RF: 0 metronidazole 500 mg tablet 500 mg PO BID 7 Days Qty: 14 RF: 0 albuterol sulfate 90 mcg/actuation aerosol powdr breath activated 2 inh inhalation Q4-6H PRN (Reason: shortness of breath) Qty: 1 RF: 0 No Action triamcinolone acetonide 0.1 % cream 1 appl topical BID 30 Days Qty: 30 RF: 0 omeprazole 20 mg capsule,delayed release(DR/EC) 20 mg PO BID 10 Days Qty: 20 RF: 0 metformin 500 mg tablet extended release 24 hr 500 mg PO BID 30 Days Qty: 60 RF: 11 Trulicity 0.75 mg/0.5 mL pen injector 0.75 mg subcut QWEEK 28 Days Qty: 2 RF: 2 amlodipine 5 mg tablet 5 mg PO DAILY Qty: 30 RF: 7 trazodone 100 mg tablet 150 mg PO BEDTIME PRN (Reason: insomnia) Qty: 90 RF: 8 Lantus Solostar U-100 Insulin 100 unit/mL (3 mL) insulin pen 20 unit subcut QPM Qty: 15 RF: 8 sertraline [Zoloft] 100 mg tablet 100 mg PO DAILY Qty: 90 RF: 8 (DME) pen needle, diabetic [1st Tier Unifine Pentips] 31 gauge x 5/16 needle See Rx Instructions .ROUTE .MEDSUPPLY Qty: 100 RF: 0 (DME) FreeStyle Lite Strips Strip See Rx Instructions .Route Qty: 100 RF: 0 risperidone 2 mg tablet PO RF: 0 diphenhydramine HCl 50 mg capsule 50 mg PO BEDTIME PRN (Reason: insomnia) RF: 0 melatonin 5 mg capsule 5 mg PO BEDTIME RF: 0 multivitamin with minerals Tablet 1 tab PO DAILY RF: 0 risperidone [Risperdal] 1 mg tablet 1 mg PO BID RF: 0 (DME) blood glucose control, low Solution See Rx Instructions .ROUTE .MEDSUPPLY Qty: 1 RF: 0 ibuprofen 600 mg tablet 600 mg PO Q6H PRN (Reason: Pain) RF: 0 magnesium hydroxide [Milk Of Magnesia Concentrated] 2,400 mg/10 mL suspension 5 ml PO DAILY PRN (Reason: Gastric Reflux) RF: 0 acetaminophen 650 mg tablet extended release 650 mg PO Q8H RF: 0 benztropine 0.5 mg tablet 0.5 mg PO DAILY PRN (Reason: Anxiety) RF: 0 guaifenesin 200 mg/5 mL liquid 200 mg PO Q4H PRN (Reason: Cough) RF: 0 betamethasone dipropionate 0.05 % cream 1 appl topical BID PRN (Reason: skin irritation) Qty: 45 RF: 3 (DME) FreeStyle Antonia 2 Sensor Kit See Rx Instructions .ROUTE .MEDSUPPLY Qty: 2 RF: 11 (DME) FreeStyle Antonia 2 [place] Misc See Rx Instructions .ROUTE .MEDSUPPLY Qty: 1 RF: 0 atorvastatin 40 mg tablet 40 mg PO DAILY 30 Days Qty: 30 RF: 11 Chantix Starting Month Box 0.5 mg (11)- 1 mg (42) tablets,dose pack 0 ea PO RF: 0 sennosides [Natural Senna Laxative] 8.6 mg tablet 8.6 mg PO BEDTIME PRN (Reason: constipation) Qty: 30 RF: 1 docusate sodium [Colace] 100 mg capsule 100 mg PO BID PRN (Reason: Constipation) Qty: 60 RF: 3 diclofenac sodium 75 mg tablet,delayed release (DR/EC) 75 mg PO BID Qty: 60 RF: 2 Referrals: Azam Chadwick MD [Primary Care Provider] - 2 days Stand Alone Forms: Work/School Release
[2021-08-10] MEDS: cefTRIAXone sodium 500 MG, Lidocaine HCl 1 % MPF 1 ML IM (16:23)
[2021-08-10] MEDS: Albuterol Sulfate 90 MCG 8 GM INHALER 2 PUFF INHALE (17:28)
[2021-08-10] MEDS: Ibuprofen 800 MG TABLET PO (18:20)
[2021-08-11 11:16] LABS: CT PCR NOT DETECTED (Not Detect.); NG PCR NOT DETECTED (Not Detect.)
== END 2021-08-10 18:25 | disposition home or self-care (01) ==
PROVIDERS: Physician Assistant; Emergency Provider Emergency Medicine; PCP Internal Medicine
DX: U07.1 COVID-19 (principal); Z20.2 Contact with and (suspected) exposure to infections with a predominantly sexual mode of transmission; I10 Essential (primary) hypertension; E11.9 Type 2 diabetes mellitus without complications; E78.5 Hyperlipidemia, unspecified; F17.200 Nicotine dependence, unspecified, uncomplicated; Z79.4 Long term (current) use of insulin; Z79.899 Other long term (current) drug therapy; Z79.02 Long term (current) use of antithrombotics/antiplatelets
CPT/HCPCS: 71045; 87491; 87591; 87635; 96374; 99284; J0696

== ENCOUNTER 2021-08-29 10:46 | Outpatient (REF) | payer OTHER, SELFPAY ==
--- NOTE | ~2021-08-29 | XR_ITS ---
EXAMINATION: XR CHEST CLINICAL INFORMATION: Cough, unspecified. COMPARISON: Chest done on 08/10/2021. TECHNIQUE: 2 views of the chest were obtained. FINDINGS: Interval development of bilateral diffuse linear prominent interstitial lung markings are noted, may represent reactive airway disease, viral pneumonia/interstitial pneumonia as well as interstitial edema or infiltrate. No evidence of any dense airspace consolidation. Cardiac mediastinal silhouette is within normal limit. No evidence of any pleural effusion or pneumothorax. XR/XR chest 2V IMPRESSION: Abnormal chest radiograph showing evidence of nonspecific bilateral diffuse linear prominent interstitial lung markings, may represent reactive airway disease versus interstitial pneumonia including viral pneumonia or interstitial edema or combination thereof. The findings are new since 08/10/2021.
[2021-08-29 11:11] LABS: MANUAL DIFF FLAG NO
[2021-08-29 11:28] LABS: Basophils Percent Auto 0.7 % (0-2); Eosinophils Absolute Auto 0.1 X10*3/uL (0.0-0.4); Eosinophils Percent Auto 1.5 % (0-4); Hematocrit 43.6 % (42.0-52.0); Hemoglobin 13.9 g/dl (14.0-18.0); Imm Gran Abs Auto 0.01 X10*3/uL (0.00-0.03); Imm Gran Pct Auto 0.2 % (0.0-0.4); Lymphocytes Absolute Auto 1.8 X10*3/uL (1.2-4.9); Lymphocytes Percent Auto 45.1 % (20-40); Mean Corpuscular HGB Conc 31.9 g/dl (31.0-36.0); Mean Corpuscular Hemoglobin 28.5 pg (27.0-33.0); Mean Corpuscular Volume 89.3 fL (80.0-98.0); Mean Platelet Volume 9.2 fL (9.4-12.4); Monocytes Absolute Auto 0.6 X10*3/uL (0.1-1.2); Monocytes Percent Auto 13.7 % (2-11); Neutrophils Absolute Auto 1.6 x10*3/uL (2.0-8.3); Neutrophils Percent Auto 38.8 % (45-73); Platelet Count 414 X10*3/uL (160-400); Red Blood Count 4.88 X10*6/uL (4.60-5.80); Red Cell Distribution Width 13.2 % (11.0-16.0)
[2021-08-29 11:44] LABS: Estimated Average Glucose 180 mg/dL; Hemoglobin A1c % 7.9 %
[2021-08-29 12:05] LABS: Microalbumin Urine < 5.0 mg/L
[2021-08-29 12:14] LABS: Alanine Aminotransferase 60 U/L (0-40); Albumin Level 3.6 g/dL (3.5-5.0); Alkaline Phosphatase 99 U/L (39-117); Anion Gap 10 (12-20); Aspartate Amino Transferase 28 U/L (5-37); Bilirubin Total 0.4 mg/dL (0.0-1.0); Blood Urea Nitrogen 10 mg/dL (9-16); Calcium 9.5 mg/dL (8.4-10.2); Carbon Dioxide 32 mmol/L (22-29); Chloride 105 mmol/L (96-108); Cholesterol 190 mg/dL; Estimated Glomerular Filt Rate 60; Glucose Fasting 101 mg/dL (60-99); HDL Cholesterol 41 mg/dL; LDL Cholesterol Calculated 123 mg/dl; Potassium 5.1 mmol/L (3.3-5.1); Sodium 142 mmol/L (135-145); Total Protein 7.6 g/dL (6.5-8.0); Triglycerides 133 mg/dL
[2021-08-29 12:25] LABS: Thyroid Stimulating Hormone 1.76 uIU/mL (0.32-4.0)
== END 2021-08-29 10:47 | disposition home or self-care (01) ==
LOC: HO.LAB 10:46
PROVIDERS: PCP Internal Medicine; Visit Provider Internal Medicine
DX: Z00.00 Encounter for general adult medical examination without abnormal findings (principal); Z13.0 Encounter for screening for diseases of the blood and blood-forming organs and certain disorders involving the immune mechanism; E11.9 Type 2 diabetes mellitus without complications; R05.9 Cough, unspecified
CPT/HCPCS: 36415; 71046; 80053; 80061; 82043; 83036; 84443; 85025

== ENCOUNTER 2021-09-12 02:55 | Emergency (ER) | payer OTHER, SELFPAY ==
[2021-09-12 03:07] VITALS: BP 123/87; PULSE 99; RESP 20; TEMP 37.4; O2SAT 98; BMI 34.0
[2021-09-12 03:39] LABS: Basophils Percent Auto 0.7 % (0-2); Eosinophils Absolute Auto 0.1 X10*3/uL (0.0-0.4); Eosinophils Percent Auto 2.5 % (0-4); Hemoglobin 12.7 g/dl (14.0-18.0); Lymphocytes Absolute Auto 2.4 X10*3/uL (1.2-4.9); Lymphocytes Percent Auto 53.4 % (20-40); Mean Corpuscular HGB Conc 31.8 g/dl (31.0-36.0); Mean Corpuscular Hemoglobin 29.3 pg (27.0-33.0); Mean Corpuscular Volume 92.2 fL (80.0-98.0); Monocytes Absolute Auto 0.5 X10*3/uL (0.1-1.2); Monocytes Percent Auto 11.5 % (2-11); Neutrophils Absolute Auto 1.4 x10*3/uL (2.0-8.3); Neutrophils Percent Auto 31.9 % (45-73); Platelet Count 194 X10*3/uL (160-400); Red Blood Count 4.34 X10*6/uL (4.60-5.80); Red Cell Distribution Width 14.1 % (11.0-16.0); White Blood Count 4.4 X10*3/uL (4.8-10.8)
[2021-09-12 03:40] LABS: MANUAL DIFF FLAG NO
--- NOTE | 2021-09-12 03:41 | ED_ITS ---
HPI - General Adult General Chief complaint: Upper Respiratory Symptoms Stated complaint: Nausea/Weakness Time Seen by Provider: 09/12/21 03:13 Source: patient Mode of arrival: ambulatory History of Present Illness HPI narrative: 51-year-old male with history of diabetes and current every day smoker who presents with COVID-19 on 08/10 and then stated that he continued to have hot flashes and was sent for a chest x-ray by his primary care provider on 08/29. As per patient he received a letter from this institution saying that the chest x-ray was abnormal and that he needed to be seen. Patient denies fever, chills but states he is ?still coughing up mucus? but otherwise denies GI or symptoms. Related Data Home Medications Medication Instructions Recorded Confirmed acetaminophen 650 mg 650 mg PO Q8H tab 06/14/20 08/29/21 tablet,extended release blood glucose control, low #1 ea 06/14/20 08/29/21 ibuprofen 600 mg tablet 600 mg PO Q6H PRN 06/14/20 08/29/21 magnesium hydroxide 2,400 mg/10 mL 5 ml PO DAILY PRN 06/14/20 08/29/21 oral suspension (Milk Of Magnesia Concentrated) melatonin 5 mg capsule 5 mg PO BEDTIME cap 06/14/20 08/29/21 multivitamin with minerals 1 tab PO DAILY 06/14/20 08/29/21 risperidone 1 mg tablet (Risperdal) 1 mg PO BID 06/14/20 08/29/21 benztropine 0.5 mg tablet 0.5 mg PO DAILY PRN 11/28/20 08/29/21 guaifenesin 200 mg/5 mL oral liquid 200 mg PO Q4H PRN 11/28/20 08/29/21 diphenhydramine HCl 50 mg capsule 50 mg PO BEDTIME PRN 12/04/20 08/29/21 risperidone 2 mg tablet mg PO 12/04/20 08/29/21 Previous Rx's Medication Instructions Recorded triamcinolone acetonide 0.1 % 1 appl TOPICAL BID 30 Days #30 g 09/27/20 topical cream atorvastatin 40 mg tablet 40 mg PO DAILY 30 Days #30 tab 11/28/20 flash glucose scanning reader #1 ea 11/28/20 (FreeStyle Antonia 2 [place]) flash glucose sensor (FreeStyle #2 ea 11/28/20 Antonia 2 Sensor) omeprazole 20 mg capsule,delayed 20 mg PO BID 10 Days #20 cap 12/03/20 release docusate sodium 100 mg capsule 100 mg PO BID PRN #60 cap 01/07/21 (Colace) sennosides 8.6 mg tablet (Natural 8.6 mg PO BEDTIME PRN #30 tab 01/07/21 Senna Laxative) betamethasone dipropionate 0.05 % 1 appl TOPICAL BID PRN #45 g 01/17/21 topical cream metformin 500 mg tablet,extended 500 mg PO BID 30 Days #60 tab 01/27/21 release 24 hr diclofenac sodium 75 mg 75 mg PO BID #60 tab 01/30/21 tablet,delayed release amlodipine 5 mg tablet 5 mg PO DAILY #30 tab 03/06/21 trazodone 100 mg tablet 150 mg PO BEDTIME PRN #90 tab 04/23/21 insulin glargine 100 unit/mL (3 20 unit (0.2 mL) SUBCUT QPM #15 ml 05/06/21 mL) subcutaneous pen (Lantus Solostar U-100 Insulin) blood sugar diagnostic (FreeStyle #100 ea 08/01/21 Lite Strips) albuterol sulfate 90 mcg/actuation 2 inh INHALATION Q4-6H PRN #1 ea 08/10/21 breath activated powder inhaler metronidazole 500 mg tablet 500 mg PO BID 7 Days #14 tab 08/10/21 dulaglutide 0.75 mg/0.5 mL 0.75 mg (0.5 mL) SUBCUT QWEEK 28 08/29/21 subcutaneous pen injector Days #2 ml (Trulicity) pen needle, diabetic 31 gauge x #100 ea 08/29/21/16 (1st Tier Unifine Pentips) sertraline 100 mg tablet (Zoloft) 100 mg PO DAILY #90 tab 08/29/21 Allergies Allergy/AdvReac Type Severity Reaction Status Date / Time No Known Allergies Allergy Verified 09/12/21 03:06 Review of Systems Review of Systems: Pertinent positives and negatives as stated HPI 10 point review of systems is otherwise negative. [facility] Past Medical History Source: nursing notes reviewed Medical History Cataract Depression Diabetes Diabetes mellitus Diabetes mellitus with coincident hypertension Family history of high cholesterol Family history of thyroid disease HLD (hyperlipidemia) HTN (hypertension) HTN (hypertension) Hx of bipolar disorder Obesity Skin rash Sleep apnea syndrome T2DM (type 2 diabetes mellitus) Vitamin D deficiency Surgical History Hx of circumcision Hx of exploratory laparotomy Family History Family History Mother Diabetic acidosis, type II Father Diabetic acidosis, type II Social History Social History Housing: Apartment Are you a primary health careers instructor to a significant other at home: No Do you presently have visiting nurse or other home services: Yes Alcohol intake: never Patient Tobacco Use Status: Current everyday Tobacco user Tobacco use type: Cigarette Cigarettes Per Day: 6 Years Smoked: 30 e-Cigarette/Vaping Use: Never Used Second Hand Smoke Exposure: No Advance Directives: No service: No Current occupational status: unemployed Current occupation: right handed Cognitive needs: No Hearing needs: No Vision needs: No Physical Exam ED Vital Signs: Vital Signs - 24 hr 09/12/21 03:07 Temperature 99.4 F Pulse Rate 99 Respiratory Rate 20 Blood Pressure 123/87 Pulse Oximetry 98 BMI result Body Mass Index 34.0 VITAL SIGNS: Reviewed. GENERAL: Obese, Well developed, well nourished, in no acute distress. HEAD: Normocephalic/atraumatic EYES: PERRLA, EOMI OROPHARYNX: no oral lesions noted, posterior pharynx clear and non-erythematous without noted tonsillar enlargement/erythema/exudates NECK: Supple, no adenopathy LUNGS: Normal breath sounds, tachypneic, no wheeze/rhonchi/rales. SpO2<98> CARDIOVASCULAR: Regular rate and rhythm without noted murmurs, no JVD or lower extremity edema. ABDOMEN: Soft, mild tenderness in epigastric without rebound, non-distended with bowel sounds. MUSCULOSKELETAL: No tenderness, deformities, or effusions noted on gross inspection. EXTREMITIES: No cyanosis, clubbing or edema. SKIN: Inspection of the skin reveals no rashes NEUROLOGIC: Alert and oriented x 4. Course Course Course Narrative: 51-year-old male with history and clinical presentation suggestive of prolonged COVID-19 symptoms, oxygenating well, but also noted to be diabetic. On review of all investigations, patient's lipase noted to be mildly elevated in addition to alkaline phosphatase. Notified by nursing that patient eloped. Medical Decision Making Lab Data Result diagrams: 09/12/21 03:35 09/12/21 03:35 Labs: Lab Results 09/12/21 09/12/21 Range/Units 03:35 03:35 WBC 4.4 L (4.8-10.8) X10*3/uL RBC 4.34 L (4.60-5.80) X10*6/uL Hgb 12.7 L (14.0-18.0) g/dl Hct 40.0 L (42.0-52.0) % MCV 92.2 (80.0-98.0) fL MCH 29.3 (27.0-33.0) pg MCHC 31.8 (31.0-36.0) g/dl RDW 14.1 (11.0-16.0) % Plt Count 194 D (160-400) X10*3/uL MPV 10.0 (9.4-12.4) fL Immature Gran % (Auto) 0.0 (0.0-0.4) % Neut % (Auto) 31.9 L (45-73) % Lymph % (Auto) 53.4 H (20-40) % [place] % (Auto) 11.5 H (2-11) % Eos % (Auto) 2.5 (0-4) % Baso % (Auto) 0.7 (0-2) % Lymph # (Auto) 2.4 (1.2-4.9) X10*3/uL [place] # (Auto) 0.5 (0.1-1.2) X10*3/uL Eos # (Auto) 0.1 (0.0-0.4) X10*3/uL Baso # (Auto) 0.0 (0.0-0.2) X10*3/uL Abs Immat Gran (auto) 0.00 (0.00-0.03) X10*3/uL Absolute Neuts (auto) 1.4 L (2.0-8.3) x10*3/uL Absolute Nucleated RBC 0.000 (0.0-0.012) X10*3/uL Nucleated RBC % (auto) 0.0 (0.0-0.2) /100WBC Sodium 137 (135-145) mmol/L Potassium 4.0 D (3.3-5.1) mmol/L Chloride 107 (96-108) mmol/L Carbon Dioxide 21 L (22-29) mmol/L Anion Gap 13 (12-20) BUN 10 (9-16) mg/dL Creatinine 0.97 (0.5-1.4) mg/dL Estim Creat Clear Calc 102.9 Estimated GFR > 60 Random Glucose 171 H D (60-115) mg/dL Calcium 8.7 D (8.4-10.2) mg/dL Total Bilirubin 0.3 (0.0-1.0) mg/dL AST 28 (5-37) U/L ALT 32 (0-40) U/L Alkaline Phosphatase 128 H D (39-117) U/L Total Protein 6.8 (6.5-8.0) g/dL Albumin 3.3 L (3.5-5.0) g/dL Lipase 103 H (8-78) U/L Discharge Plan Discharge Clinical Impression: Abnormal x-ray Patient Disposition: Elopement Prescriptions: No Action triamcinolone acetonide 0.1 % cream 1 appl topical BID 30 Days Qty: 30 0RF omeprazole 20 mg capsule,delayed release(DR/EC) 20 mg PO BID 10 Days Qty: 20 0RF Rx Instructions: Take 2 capsules by mouth twice a day for 10 days metformin 500 mg tablet extended release 24 hr 500 mg PO BID 30 Days Qty: 60 11RF amlodipine 5 mg tablet 5 mg PO DAILY Qty: 30 7RF trazodone 100 mg tablet 150 mg PO BEDTIME PRN (Reason: insomnia) Qty: 90 8RF Lantus Solostar U-100 Insulin 100 unit/mL (3 mL) insulin pen 20 unit subcut QPM Qty: 15 8RF (DME) FreeStyle Lite Strips Strip See Rx Instructions .Route Qty: 100 0RF Rx Instructions: Test 3 times daily metronidazole 500 mg tablet 500 mg PO BID 7 Days Qty: 14 0RF albuterol sulfate 90 mcg/actuation aerosol powdr breath activated 2 inh inhalation Q4-6H PRN (Reason: shortness of breath) Qty: 1 0RF risperidone 2 mg tablet PO 0RF diphenhydramine HCl 50 mg capsule 50 mg PO BEDTIME PRN (Reason: insomnia) 0RF melatonin 5 mg capsule 5 mg PO BEDTIME 0RF multivitamin with minerals Tablet 1 tab PO DAILY 0RF risperidone [Risperdal] 1 mg tablet 1 mg PO BID 0RF (DME) blood glucose control, low Solution See Rx Instructions .ROUTE .MEDSUPPLY Qty: 1 0RF Rx Instructions: As directed ibuprofen 600 mg tablet 600 mg PO Q6H PRN (Reason: Pain) 0RF magnesium hydroxide [Milk Of Magnesia Concentrated] 2,400 mg/10 mL suspension 5 ml PO DAILY PRN (Reason: Gastric Reflux) 0RF acetaminophen 650 mg tablet extended release 650 mg PO Q8H 0RF benztropine 0.5 mg tablet 0.5 mg PO DAILY PRN (Reason: Anxiety) 0RF guaifenesin 200 mg/5 mL liquid 200 mg PO Q4H PRN (Reason: Cough) 0RF betamethasone dipropionate 0.05 % cream 1 appl topical BID PRN (Reason: skin irritation) Qty: 45 3RF sertraline [Zoloft] 100 mg tablet 100 mg PO DAILY Qty: 90 8RF Trulicity 0.75 mg/0.5 mL pen injector 0.75 mg subcut QWEEK 28 Days Qty: 2 2RF (DME) pen needle, diabetic [1st Tier Unifine Pentips] 31 gauge x 5/16 needle See Rx Instructions .ROUTE .MEDSUPPLY Qty: 100 0RF Rx Instructions: Use Daily (DME) FreeStyle Antonia 2 Sensor Kit See Rx Instructions .ROUTE .MEDSUPPLY Qty: 2 11RF Rx Instructions: Once every 14 days (DME) FreeStyle Antonia 2 [place] Misc See Rx Instructions .ROUTE .MEDSUPPLY Qty: 1 0RF Rx Instructions: As directed atorvastatin 40 mg tablet 40 mg PO DAILY 30 Days Qty: 30 11RF sennosides [Natural Senna Laxative] 8.6 mg tablet 8.6 mg PO BEDTIME PRN (Reason: constipation) Qty: 30 1RF docusate sodium [Colace] 100 mg capsule 100 mg PO BID PRN (Reason: Constipation) Qty: 60 3RF diclofenac sodium 75 mg tablet,delayed release (DR/EC) 75 mg PO BID Qty: 60 2RF
[2021-09-12 04:01] LABS: Alanine Aminotransferase 32 U/L (0-40); Albumin Level 3.3 g/dL (3.5-5.0); Alkaline Phosphatase 128 U/L (39-117); Anion Gap 13 (12-20); Aspartate Amino Transferase 28 U/L (5-37); Bilirubin Total 0.3 mg/dL (0.0-1.0); Blood Urea Nitrogen 10 mg/dL (9-16); Calcium 8.7 mg/dL (8.4-10.2); Carbon Dioxide 21 mmol/L (22-29); Chloride 107 mmol/L (96-108); Creatinine Clr Calc Pharmacy 102.9; Estimated Glomerular Filt Rate > 60; Glucose Random 171 mg/dL (60-115); Lipase 103 U/L (8-78); Sodium 137 mmol/L (135-145); Total Protein 6.8 g/dL (6.5-8.0)
--- NOTE | 2021-09-12 04:20 | PC.NURSE ---
pt eloped from department prior to completion of MD quiroga; exited in stable condition w/ all belongings, ambulatory, in NAD, no PIV
== END 2021-09-12 04:26 | disposition left against medical advice (07) ==
PROVIDERS: Emergency Provider Student in an Organized Health Care Education/Training Program; PCP Internal Medicine
DX: R05.9 Cough, unspecified (principal); F17.210 Nicotine dependence, cigarettes, uncomplicated; Z71.6 Tobacco abuse counseling; Z79.899 Other long term (current) drug therapy
CPT/HCPCS: 36415; 80053; 83690; 85025; 99282; 99283

== ENCOUNTER 2021-09-26 16:16 | Emergency (ER) | payer OTHER, SELFPAY ==
--- NOTE | ~2021-09-26 | XR_ITS ---
EXAMINATION: XR CHEST CLINICAL INFORMATION: sob COMPARISON: None TECHNIQUE: 2 views of the chest were obtained. FINDINGS: No significant abnormality is noted involving the heart, lungs, mediastinum, bony thorax or soft tissues. XR/XR chest 2V IMPRESSION: Unremarkable examination.
[2021-09-26 16:37] VITALS: BP 133/87; PULSE 96; RESP 18; TEMP 37.1; O2SAT 97; BMI 37.8
--- NOTE | 2021-09-26 16:53 | ECG_ITS ---
Test Reason : SHORTNESS OF BREATH Blood Pressure : / mmHG Vent. Rate : 088 BPM Atrial Rate : 088 BPM P-R Int : 166 ms QRS Dur : 108 ms QT Int : 358 ms P-R-T Axes : 048 -40 034 degrees QTc Int : 433 ms Normal sinus rhythm Left axis deviation Cannot rule out Inferior infarct , age undetermined Possible Anteroseptal infarct , age undetermined Abnormal ECG No previous ECGs available Referred By: Generic ED Physician Electronically Signed By:Chuck Partida
[2021-09-26 17:01] LABS: Glucose, Whole Blood 142 mg/dL (60-115)
[2021-09-26 17:19] LABS: Alanine Aminotransferase 25 U/L (0-40); Albumin Level 3.9 g/dL (3.5-5.0); Alkaline Phosphatase 149 U/L (39-117); Anion Gap 12 (12-20); Aspartate Amino Transferase 18 U/L (5-37); Bilirubin Total 0.3 mg/dL (0.0-1.0); Blood Urea Nitrogen 14 mg/dL (9-16); Calcium 9.3 mg/dL (8.4-10.2); Carbon Dioxide 26 mmol/L (22-29); Chloride 106 mmol/L (96-108); Creatinine Clr Calc Pharmacy 82.3; Estimated Glomerular Filt Rate 59; Glucose Random 146 mg/dL (60-115); Potassium 4.3 mmol/L (3.3-5.1); Sodium 140 mmol/L (135-145); Total Protein 7.6 g/dL (6.5-8.0)
[2021-09-26 17:19] LABS: Amphetamine Screen Urine Not Detected (Not Detect); Barbiturates, Urine Not Detected (Not Detect); Benzodiazepines Screen Urine Not Detected (Not Detect); Cannabinoid Screen Urine Not Detected (Not Detect); Cocaine Screen Urine Not Detected (Not Detect); Fentanyl, urine Not Detected (Not Detect); Opiate Screen Urine Not Detected (Not Detect); Phencyclidine Screen Urine Not Detected (Not Detect)
[2021-09-26 17:23] LABS: Troponin-I High Sensitivity < 3.5 ng/L (<3.5-35.0)
[2021-09-26 18:43] LABS: MANUAL DIFF FLAG NO
[2021-09-26 18:50] LABS: Basophils Percent Auto 0.6 % (0-2); Eosinophils Absolute Auto 0.1 X10*3/uL (0.0-0.4); Eosinophils Percent Auto 1.4 % (0-4); Hematocrit 41.7 % (42.0-52.0); Hemoglobin 13.5 g/dl (14.0-18.0); Imm Gran Abs Auto 0.01 X10*3/uL (0.00-0.03); Imm Gran Pct Auto 0.2 % (0.0-0.4); Lymphocytes Absolute Auto 2.6 X10*3/uL (1.2-4.9); Lymphocytes Percent Auto 39.5 % (20-40); Mean Corpuscular HGB Conc 32.4 g/dl (31.0-36.0); Mean Corpuscular Hemoglobin 28.6 pg (27.0-33.0); Mean Corpuscular Volume 88.3 fL (80.0-98.0); Mean Platelet Volume 10.1 fL (9.4-12.4); Monocytes Absolute Auto 0.5 X10*3/uL (0.1-1.2); Monocytes Percent Auto 7.1 % (2-11); Neutrophils Absolute Auto 3.4 x10*3/uL (2.0-8.3); Neutrophils Percent Auto 51.2 % (45-73); Platelet Count 309 X10*3/uL (160-400); Red Blood Count 4.72 X10*6/uL (4.60-5.80); Red Cell Distribution Width 13.6 % (11.0-16.0); White Blood Count 6.6 X10*3/uL (4.8-10.8)
--- NOTE | 2021-09-26 19:01 | ED_ITS ---
HPI - General Adult General Chief complaint: Upper Respiratory Symptoms Stated complaint: something in his ear is irritating him? Time Seen by Provider: 09/26/21 16:46 Source: patient Mode of arrival: ambulatory Limitations: no limitations History of Present Illness HPI narrative: 51-year-old male who presents emergency department for evaluation ?there is something in my left ear that is moving ?and fever, chills, nausea, vomiting, shortness of breast and cough since he was diagnosed with COVID-19 in August 28. The patient states that he got COVID in August of 2021. He states that initially he had fever, chills, sweats, vomiting, cough and shortness of breath. He states that his symptoms improved however he continues to have night sweats and occasional chills. He denied chest pain dyspnea on exertion but he states he does feel slightly short of breath at rest. The patient states he did have s ignificant diarrhea which is resolved. Patient also states that he has something in his left ear he feels like it is moving, he states that he does have decreased hearing in his left ear, he has no pain in his left ear. Related Data Home Medications Medication Instructions Recorded Confirmed acetaminophen 650 mg 650 mg PO Q8H tab 06/14/20 08/29/21 tablet,extended release blood glucose control, low #1 ea 06/14/20 08/29/21 ibuprofen 600 mg tablet 600 mg PO Q6H PRN 06/14/20 08/29/21 magnesium hydroxide 2,400 mg/10 mL 5 ml PO DAILY PRN 06/14/20 08/29/21 oral suspension (Milk Of Magnesia Concentrated) melatonin 5 mg capsule 5 mg PO BEDTIME cap 06/14/20 08/29/21 multivitamin with minerals 1 tab PO DAILY 06/14/20 08/29/21 risperidone 1 mg tablet (Risperdal) 1 mg PO BID 06/14/20 08/29/21 benztropine 0.5 mg tablet 0.5 mg PO DAILY PRN 11/28/20 08/29/21 guaifenesin 200 mg/5 mL oral liquid 200 mg PO Q4H PRN 11/28/20 08/29/21 diphenhydramine HCl 50 mg capsule 50 mg PO BEDTIME PRN 12/04/20 08/29/21 risperidone 2 mg tablet mg PO 12/04/20 08/29/21 Previous Rx's Medication Instructions Recorded triamcinolone acetonide 0.1 % 1 appl TOPICAL BID 30 Days #30 g 09/27/20 topical cream atorvastatin 40 mg tablet 40 mg PO DAILY 30 Days #30 tab 11/28/20 flash glucose scanning reader #1 ea 11/28/20 (FreeStyle Antonia 2 Streator) flash glucose sensor (FreeStyle #2 ea 11/28/20 Antonia 2 Sensor) omeprazole 20 mg capsule,delayed 20 mg PO BID 10 Days #20 cap 12/03/20 release docusate sodium 100 mg capsule 100 mg PO BID PRN #60 cap 01/07/21 (Colace) sennosides 8.6 mg tablet (Natural 8.6 mg PO BEDTIME PRN #30 tab 01/07/21 Senna Laxative) betamethasone dipropionate 0.05 % 1 appl TOPICAL BID PRN #45 g 01/17/21 topical cream metformin 500 mg tablet,extended 500 mg PO BID 30 Days #60 tab 01/27/21 release 24 hr diclofenac sodium 75 mg 75 mg PO BID #60 tab 01/30/21 tablet,delayed release amlodipine 5 mg tablet 5 mg PO DAILY #30 tab 03/06/21 trazodone 100 mg tablet 150 mg PO BEDTIME PRN #90 tab 04/23/21 insulin glargine 100 unit/mL (3 20 unit (0.2 mL) SUBCUT QPM #15 ml 05/06/21 mL) subcutaneous pen (Lantus Solostar U-100 Insulin) blood sugar diagnostic (FreeStyle #100 ea 08/01/21 Lite Strips) albuterol sulfate 90 mcg/actuation 2 inh INHALATION Q4-6H PRN #1 ea 08/10/21 breath activated powder inhaler metronidazole 500 mg tablet 500 mg PO BID 7 Days #14 tab 08/10/21 dulaglutide 0.75 mg/0.5 mL 0.75 mg (0.5 mL) SUBCUT QWEEK 28 08/29/21 subcutaneous pen injector Days #2 ml (Trulicity) pen needle, diabetic 31 gauge x #100 ea 08/29/21 5/16 (1st Tier Unifine Pentips) sertraline 100 mg tablet (Zoloft) 100 mg PO DAILY #90 tab 08/29/21 Allergies Allergy/AdvReac Type Severity Reaction Status Date / Time No Known Allergies Allergy Verified 09/26/21 16:36 Review of Systems Review of Systems: Yes all other systems are reviewed and are negative [facility] Past Medical History Medical History Cataract Depression Diabetes Diabetes mellitus Diabetes mellitus with coincident hypertension Family history of high cholesterol Family history of thyroid disease HLD (hyperlipidemia) HTN (hypertension) HTN (hypertension) Hx of bipolar disorder Obesity Skin rash Sleep apnea syndrome T2DM (type 2 diabetes mellitus) Vitamin D deficiency Surgical History Hx of circumcision Hx of exploratory laparotomy Family History Family History Mother Diabetic acidosis, type II Father Diabetic acidosis, type II Social History Social History Housing: Apartment Are you a primary mall plant caretaker to a significant other at home: No Do you presently have visiting nurse or other home services: Yes Alcohol intake: never Patient Tobacco Use Status: Current everyday Tobacco user Tobacco use type: Cigarette Cigarettes Per Day: 6 Years Smoked: 30 e-Cigarette/Vaping Use: Never Used Second Hand Smoke Exposure: No Advance Directives: No Advance Directives Information Provided: No service: No Current occupational status: unemployed Current occupation: right handed Cognitive needs: No Hearing needs: No Vision needs: No Physical Exam ED Vital Signs: Vital Signs - 24 hr 09/26/21 16:37 Temperature 98.7 F Pulse Rate 96 Respiratory Rate 18 Blood Pressure 133/87 Pulse Oximetry 97 BMI result Body Mass Index 37.8 Const General: cooperative and no acute distress Orientation/consciousness: oriented to person and oriented to place Limitations: no limitations HENMT Head: Yes normal to inspection, Yes normocephalic and Yes atraumatic Ears: external ears normal and other (There is a white object obstructing the view of the left tympanic membrane) General nose exam: Normal external nose present Face and sinus: Yes normal facial exam Mouth: Normal oral and palatal mucosa present Throat: Yes posterior oropharynx normal Eyes General: appearance normal, both eyes and all related structures Pupils: Equal, round and reactive pupils present Neck Neck: Yes normal visual inspection, Yes no lymphadenopathy, Yes trachea midline and Yes supple Chest Chest palpation & inspection: normal inspection of the chest and normal palpation of entire chest wall Resp Effort & Inspection: normal respiratory effort and able to speak in complete sentences Auscultation: clear to auscultation bilaterally Cardio Rate: regular rate Rhythm: regular rhythm Heart sounds: S1 normal heart sound present, S2 normal heart sound present and no murmurs GI Inspection: Yes normal to inspection Palpation (GI): Soft to palpation, nontender and no guarding Auscultation: normal bowel sounds General: Yes no CVA tenderness Back/Spine/Pelvis Back: no CVA tenderness Skin General skin exam: no rashes or lesions noted Neuro General: oriented to person and oriented to place Cranial nerves: Yes CN's II-XII intact bilaterally and Yes Equal, round and reactive pupils present Cognition (Neuro): normal cognition Motor exam (neuro): 5/5 motor strength present throughout Extrem General: Yes normal to inspection Psych Appearance: grossly normal Speech and movement: Normal speech and movement present Affect: normal affect Attitude: cooperative Thought process: Normal thought process present Thought content: Normal thought content present Course Course Course Narrative: 51-year-old male who states that he was diagnosed with COVID in August of 2021 and presents emergency department for evaluation of nausea, fever, shortness of breath, cough. The patient also complains of a foreign body sensation in the left ear. The patient's vital signs were normal. The patient's laboratory evaluation was unremarkable. Chest x-ray was normal. 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 There was a foreign body in the patient's left ear and with the help of the nurse said was able to irrigate the foreign body out. The foreign bodies consistent with the cotton tip of a Q-tip. Patient was given printed and verbal instructions discharged home. Medical Decision Making Lab Data Result diagrams: 09/26/21 18:30 09/26/21 16:51 Labs: Lab Results 09/26/21 09/26/21 09/26/21 Range/Units 16:45 16:50 16:51 WBC (4.8-10.8) X10*3/uL RBC (4.60-5.80) X10*6/uL Hgb (14.0-18.0) g/dl Hct (42.0-52.0) % MCV (80.0-98.0) fL MCH (27.0-33.0) pg MCHC (31.0-36.0) g/dl RDW (11.0-16.0) % Plt Count (160-400) X10*3/uL MPV (9.4-12.4) fL Immature Gran % (Auto) (0.0-0.4) % Neut % (Auto) (45-73) % Lymph % (Auto) (20-40) % [place] % (Auto) (2-11) % Eos % (Auto) (0-4) % Baso % (Auto) (0-2) % Lymph # (Auto) (1.2-4.9) X10*3/uL [place] # (Auto) (0.1-1.2) X10*3/uL Eos # (Auto) (0.0-0.4) X10*3/uL Baso # (Auto) (0.0-0.2) X10*3/uL Abs Immat Gran (auto) (0.00-0.03) X10*3/uL Absolute Neuts (auto) (2.0-8.3) x10*3/uL Absolute Nucleated RBC (0.0-0.012) X10*3/uL Nucleated RBC % (auto) (0.0-0.2) /100WBC Sodium 140 (135-145) mmol/L Potassium 4.3 (3.3-5.1) mmol/L Chloride 106 (96-108) mmol/L Carbon Dioxide 26 (22-29) mmol/L Anion Gap 12 (12-20) BUN 14 (9-16) mg/dL Creatinine 1.28 (0.5-1.4) mg/dL Estim Creat Clear Calc 82.3 Estimated GFR 59 POC Glucose 142 H (60-115) mg/dL Random Glucose 146 H (60-115) mg/dL Calcium 9.3 D (8.4-10.2) mg/dL Total Bilirubin 0.3 (0.0-1.0) mg/dL AST 18 (5-37) U/L ALT 25 (0-40) U/L Alkaline Phosphatase 149 H (39-117) U/L Troponin I High Sens (<3.5-35.0) ng/L Total Protein 7.6 (6.5-8.0) g/dL Albumin 3.9 (3.5-5.0) g/dL Urine Opiates Screen Not Detected (Not Detect) Urine Fentanyl Screen Not Detected (Not Detect) Ur Barbiturates Screen Not Detected (Not Detect) Ur Phencyclidine Scrn Not Detected (Not Detect) Ur Amphetamines Screen Not Detected (Not Detect) U Benzodiazepines Scrn Not Detected (Not Detect) Urine Cocaine Screen Not Detected (Not Detect) U Marijuana (THC) Screen Not Detected (Not Detect) 09/26/21 09/26/21 Range/Units 16:51 18:30 WBC 6.6 (4.8-10.8) X10*3/uL RBC 4.72 (4.60-5.80) X10*6/uL Hgb 13.5 L (14.0-18.0) g/dl Hct 41.7 L (42.0-52.0) % MCV 88.3 (80.0-98.0) fL MCH 28.6 (27.0-33.0) pg MCHC 32.4 (31.0-36.0) g/dl RDW 13.6 (11.0-16.0) % Plt Count 309 D (160-400) X10*3/uL MPV 10.1 (9.4-12.4) fL Immature Gran % (Auto) 0.2 (0.0-0.4) % Neut % (Auto) 51.2 (45-73) % Lymph % (Auto) 39.5 (20-40) % [place] % (Auto) 7.1 (2-11) % Eos % (Auto) 1.4 (0-4) % Baso % (Auto) 0.6 (0-2) % Lymph # (Auto) 2.6 (1.2-4.9) X10*3/uL [place] # (Auto) 0.5 (0.1-1.2) X10*3/uL Eos # (Auto) 0.1 (0.0-0.4) X10*3/uL Baso # (Auto) 0.0 (0.0-0.2) X10*3/uL Abs Immat Gran (auto) 0.01 (0.00-0.03) X10*3/uL Absolute Neuts (auto) 3.4 (2.0-8.3) x10*3/uL Absolute Nucleated RBC 0.000 (0.0-0.012) X10*3/uL Nucleated RBC % (auto) 0.0 (0.0-0.2) /100WBC Sodium (135-145) mmol/L Potassium (3.3-5.1) mmol/L Chloride (96-108) mmol/L Carbon Dioxide (22-29) mmol/L Anion Gap (12-20) BUN (9-16) mg/dL Creatinine (0.5-1.4) mg/dL Estim Creat Clear Calc Estimated GFR POC Glucose (60-115) mg/dL Random Glucose (60-115) mg/dL Calcium (8.4-10.2) mg/dL Total Bilirubin (0.0-1.0) mg/dL AST (5-37) U/L ALT (0-40) U/L Alkaline Phosphatase (39-117) U/L Troponin I High Sens < 3.5 (<3.5-35.0) ng/L Total Protein (6.5-8.0) g/dL Albumin (3.5-5.0) g/dL Urine Opiates Screen (Not Detect) Urine Fentanyl Screen (Not Detect) Ur Barbiturates Screen (Not Detect) Ur Phencyclidine Scrn (Not Detect) Ur Amphetamines Screen (Not Detect) U Benzodiazepines Scrn (Not Detect) Urine Cocaine Screen (Not Detect) U Marijuana (THC) Screen (Not Detect) Discharge Plan Discharge Clinical Impression: URI (upper respiratory infection), Acute foreign body of left ear Patient Disposition: Home, Self-Care Additional Instructions: Your blood work today was unremarkable which is reassuring. Your chest x-ray was normal as well. Your EKG is abnormal, you may have had a ?silent heart attack ?in the past however this is not the cause of your symptoms today. I believe that your symptoms are by the COVID infection that you had in July and August. It sometimes takes weeks to months to get completely back to normal. I did remove a cotton ball from your left ear . Follow-up with your doctor in 2 days. Please return to the emergency department if your symptoms get worse or if you develop any symptoms that are concerning to you. Prescriptions: No Action triamcinolone acetonide 0.1 % cream 1 appl topical BID 30 Days Qty: 30 0RF omeprazole 20 mg capsule,delayed release(DR/EC) 20 mg PO BID 10 Days Qty: 20 0RF Rx Instructions: Take 2 capsules by mouth twice a day for 10 days metformin 500 mg tablet extended release 24 hr 500 mg PO BID 30 Days Qty: 60 11RF amlodipine 5 mg tablet 5 mg PO DAILY Qty: 30 7RF trazodone 100 mg tablet 150 mg PO BEDTIME PRN (Reason: insomnia) Qty: 90 8RF Lantus Solostar U-100 Insulin 100 unit/mL (3 mL) insulin pen 20 unit subcut QPM Qty: 15 8RF (DME) FreeStyle Lite Strips Strip See Rx Instructions .Route Qty: 100 0RF Rx Instructions: Test 3 times daily metronidazole 500 mg tablet 500 mg PO BID 7 Days Qty: 14 0RF albuterol sulfate 90 mcg/actuation aerosol powdr breath activated 2 inh inhalation Q4-6H PRN (Reason: shortness of breath) Qty: 1 0RF risperidone 2 mg tablet PO 0RF diphenhydramine HCl 50 mg capsule 50 mg PO BEDTIME PRN (Reason: insomnia) 0RF melatonin 5 mg capsule 5 mg PO BEDTIME 0RF multivitamin with minerals Tablet 1 tab PO DAILY 0RF risperidone [Risperdal] 1 mg tablet 1 mg PO BID 0RF (DME) blood glucose control, low Solution See Rx Instructions .ROUTE .MEDSUPPLY Qty: 1 0RF Rx Instructions: As directed ibuprofen 600 mg tablet 600 mg PO Q6H PRN (Reason: Pain) 0RF magnesium hydroxide [Milk Of Magnesia Concentrated] 2,400 mg/10 mL suspension 5 ml PO DAILY PRN (Reason: Gastric Reflux) 0RF acetaminophen 650 mg tablet extended release 650 mg PO Q8H 0RF benztropine 0.5 mg tablet 0.5 mg PO DAILY PRN (Reason: Anxiety) 0RF guaifenesin 200 mg/5 mL liquid 200 mg PO Q4H PRN (Reason: Cough) 0RF betamethasone dipropionate 0.05 % cream 1 appl topical BID PRN (Reason: skin irritation) Qty: 45 3RF sertraline [Zoloft] 100 mg tablet 100 mg PO DAILY Qty: 90 8RF Trulicity 0.75 mg/0.5 mL pen injector 0.75 mg subcut QWEEK 28 Days Qty: 2 2RF (DME) pen needle, diabetic [1st Tier Unifine Pentips] 31 gauge x 5/16 needle See Rx Instructions .ROUTE .MEDSUPPLY Qty: 100 0RF Rx Instructions: Use Daily (DME) FreeStyle Antonia 2 Sensor Kit See Rx Instructions .ROUTE .MEDSUPPLY Qty: 2 11RF Rx Instructions: Once every 14 days (DME) FreeStyle Antonia 2 Streator Misc See Rx Instructions .ROUTE .MEDSUPPLY Qty: 1 0RF Rx Instructions: As directed atorvastatin 40 mg tablet 40 mg PO DAILY 30 Days Qty: 30 11RF sennosides [Natural Senna Laxative] 8.6 mg tablet 8.6 mg PO BEDTIME PRN (Reason: constipation) Qty: 30 1RF docusate sodium [Colace] 100 mg capsule 100 mg PO BID PRN (Reason: Constipation) Qty: 60 3RF diclofenac sodium 75 mg tablet,delayed release (DR/EC) 75 mg PO BID Qty: 60 2RF
== END 2021-09-26 19:32 | disposition home or self-care (01) ==
PROVIDERS: Emergency Provider Emergency Medicine Emergency Medical Services
DX: J06.9 Acute upper respiratory infection, unspecified (principal); T16.2XXA Foreign body in left ear, initial encounter; X58.XXXA Exposure to other specified factors, initial encounter; Y93.E8 Activity, other personal hygiene; Y92.019 Unspecified place in single-family (private) house as the place of occurrence of the external cause; Y99.9 Unspecified external cause status; F17.200 Nicotine dependence, unspecified, uncomplicated; Z86.16 Personal history of COVID-19
CPT/HCPCS: 36415; 71046; 80053; 80307; 82947; 84484; 85025; 93005; 99283; 99284

== ENCOUNTER 2021-12-24 19:30 | Inpatient (IN) | payer OTHER, SELFPAY ==
--- NOTE | ~2021-12-24 | US_ITS ---
EXAMINATION: US VENOUS ULTRASOUND WITH DOPPLER LOWER EXTREMITY, BILATERAL CLINICAL INFORMATION: Bilateral lower extremity pain COMPARISON: None TECHNIQUE: Ultrasound of the deep veins is performed from the hip to the calf with compression sonography and color and pulse Doppler assessment. Spectral analysis with color-flow imaging is performed. FINDINGS: RIGHT: There is normal venous compression and respiratory variation and augmented flow. The visualized common femoral vein, superficial femoral vein, profunda femoral vein, popliteal vein, and the trifurcation region shows no evidence of deep venous thrombosis. There is no significant popliteal fossa cyst. LEFT: There is normal venous compression and respiratory variation and augmented flow. The visualized common femoral vein, superficial femoral vein, profunda femoral vein, popliteal vein, and the trifurcation region shows no evidence of deep venous thrombosis. There is no significant popliteal fossa cyst. If the patient's symptoms persist, followup ultrasound in 5 days 7 days might be of value to exclude proximal propagation from a non-visualized calf vein. US/US venous duplex LE BI IMPRESSION: No DVT demonstrated in either lower extremity.
[2021-12-24 19:36] VITALS: BP 120/75; PULSE 78; RESP 18; TEMP 36.3; O2SAT 95; BMI 36.2
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
[2021-12-24 20:14] LABS: COVID-19 Test Negative (Negative); IDNOW Serial# 16C4AD1C
[2021-12-24 20:15] LABS: Amphetamine Screen Urine Not Detected (Not Detect); Appearance Urine HAZY; Barbiturates, Urine Not Detected (Not Detect); Benzodiazepines Screen Urine Not Detected (Not Detect); Cannabinoid Screen Urine POSITIVE (Not Detect); Cocaine Screen Urine POSITIVE (Not Detect); Color Urine YELLOW; Fentanyl, urine POSITIVE (Not Detect); Glucose Urine UA NEG (NEG); Leukocyte Esterase Urine NEG (NEG); Nitrite Urine NEG (NEG); Opiate Screen Urine Not Detected (Not Detect); Phencyclidine Screen Urine Not Detected (Not Detect); Specific Gravity - Urine >= 1.030 (1.005-1.025); Urine Blood NEG (NEG); Urine Ketones 5 MG/DL (NEG); Urine Protein TRACE MG/DL (NEG-TRACE)
[2021-12-24 20:18] LABS: MANUAL DIFF FLAG NO
[2021-12-24 20:27] LABS: Basophils Percent Auto 0.6 % (0-2); Eosinophils Absolute Auto 0.1 X10*3/uL (0.0-0.4); Eosinophils Percent Auto 2.8 % (0-4); Hematocrit 40.9 % (42.0-52.0); Hemoglobin 13.6 g/dl (14.0-18.0); Imm Gran Abs Auto 0.01 X10*3/uL (0.00-0.03); Imm Gran Pct Auto 0.2 % (0.0-0.4); Lymphocytes Absolute Auto 2.4 X10*3/uL (1.2-4.9); Lymphocytes Percent Auto 47.8 % (20-40); Mean Corpuscular HGB Conc 33.3 g/dl (31.0-36.0); Mean Corpuscular Hemoglobin 29.6 pg (27.0-33.0); Mean Corpuscular Volume 89.1 fL (80.0-98.0); Mean Platelet Volume 11.1 fL (9.4-12.4); Monocytes Absolute Auto 0.6 X10*3/uL (0.1-1.2); Monocytes Percent Auto 12.4 % (2-11); Neutrophils Absolute Auto 1.8 x10*3/uL (2.0-8.3); Neutrophils Percent Auto 36.2 % (45-73); Platelet Count 214 X10*3/uL (160-400); Red Blood Count 4.59 X10*6/uL (4.60-5.80)
[2021-12-24 20:32] LABS: Ethanol < 10 mg/dL
[2021-12-24 20:41] LABS: Valproate 5.7 mcg/mL (50.0-100.0)
[2021-12-24 20:44] LABS: Alanine Aminotransferase 45 U/L (0-40); Albumin Level 3.8 g/dL (3.5-5.0); Alkaline Phosphatase 141 U/L (39-117); Anion Gap 11 (12-20); Aspartate Amino Transferase 43 U/L (5-37); Bilirubin Direct 0.2 mg/dL (0.0-0.5); Bilirubin Total 0.4 mg/dL (0.0-1.0); Blood Urea Nitrogen 13 mg/dL (9-16); Calcium 9.4 mg/dL (8.4-10.2); Carbon Dioxide 29 mmol/L (22-29); Chloride 103 mmol/L (96-108); Creatinine Clr Calc Pharmacy 78.6; Estimated Glomerular Filt Rate 57; Glucose Random 156 mg/dL (60-115); Magnesium 2.3 mg/dL (1.6-2.6); Sodium 139 mmol/L (135-145); Total Protein 7.5 g/dL (6.5-8.0)
[2021-12-24 20:56] LABS: Acetaminophen LAB < 1 mcg/mL (<30); Salicylate < 5.0 mg/dL (15-30)
[2021-12-24 23:37] VITALS: BP 115/63; PULSE 79; RESP 17; TEMP 36.3; O2SAT 93
[2021-12-24 23:44] LABS: Glucose, Whole Blood 248 mg/dL (60-115)
[2021-12-24] MEDS: Insulin Lispro 100 UNIT/ML 3 ML VIAL SUBCUT (23:47)
--- NOTE | 2021-12-25 03:48 | PC.NURSE ---
Patient was assessed by BHN, patient engaged appropriately during assessment, disposition per N is section 12 Inpatient Bed Search, provider and patient agreement with disposition, VSS, will continue to monitor.
[2021-12-25 07:26] LABS: Glucose, Whole Blood 181 mg/dL (60-115)
[2021-12-25] MEDS: Insulin Lispro 100 UNIT/ML 3 ML VIAL SUBCUT ×2 (07:33→14:02)
--- NOTE | 2021-12-25 07:44 | PC.NURSE ---
patient is awake and at rest at present, consuming breakfast on couch in common area, patient appears in no distress
[2021-12-25] MEDS: Divalproex Sodium ER 500 MG TAB.ER.24H PO ×3 (10:41→21:29)
[2021-12-25] MEDS: hydrOXYzine HCL 25 MG TABLET PO ×3 (10:44→21:29)
[2021-12-25] MEDS: Ibuprofen 400 MG TABLET PO ×3 (10:44→21:29)
[2021-12-25] MEDS: Sertraline HCL 100 MG TABLET PO (10:45)
[2021-12-25 12:49] LABS: Glucose, Whole Blood 167 mg/dL (60-115)
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
[2021-12-25 17:13] LABS: Glucose, Whole Blood 148 mg/dL (60-115)
[2021-12-25 20:09] VITALS: BP 121/71; PULSE 72; RESP 20; TEMP 36.5; O2SAT 97
[2021-12-25] MEDS: traZODone HCL 50 MG TABLET 150 MG PO (21:28)
[2021-12-25 21:32] LABS: Glucose, Whole Blood 148 mg/dL (60-115)
--- NOTE | 2021-12-26 | ECG_ITS ---
Test Reason : MEDICAL CLEARANCE Blood Pressure : / mmHG Vent. Rate : 062 BPM Atrial Rate : 062 BPM P-R Int : 154 ms QRS Dur : 084 ms QT Int : 394 ms P-R-T Axes : 047 -33 024 degrees QTc Int : 399 ms Normal sinus rhythm Left axis deviation Septal infarct (cited on or before 26-SEP-2021) Abnormal ECG When compared with ECG of 26-SEP-2021 16:57, QRS duration has decreased Questionable change in initial forces of Anterior leads Referred By: Shania Ye Electronically Signed By:YVONNE AARON MD
--- NOTE | 2021-12-26 07:17 | PC.NURSE ---
Patient slept through the night, no distress observed/reported, behavior appropriate and non concerning, medication compliant, VSS, disposition per [facility] is section 12 inpatient bed search, VSS, will continue to monitor.
--- NOTE | 2021-12-26 07:28 | PC.NURSE ---
patient appears to remain asleep at present respirations are even and unlabored patient appears in no distress
[2021-12-26 07:51] VITALS: BP 108/57; PULSE 59; RESP 19; TEMP 36.3; O2SAT 93
[2021-12-26 09:09] LABS: Glucose, Whole Blood 135 mg/dL (60-115)
[2021-12-26] MEDS: Divalproex Sodium ER 500 MG TAB.ER.24H PO ×3 (09:23→22:37)
[2021-12-26] MEDS: hydrOXYzine HCL 25 MG TABLET PO ×2 (09:24→22:37)
[2021-12-26] MEDS: Ibuprofen 400 MG TABLET PO ×3 (09:24→22:36)
[2021-12-26] MEDS: Sertraline HCL 100 MG TABLET PO (09:24)
[2021-12-26 13:15] LABS: COVID-19 Test Negative (Negative)
--- NOTE | 2021-12-26 14:06 | PC.NURSE ---
pt has declined slidding scale insulin and afternoon atarax. Has been sleeping on and off on couch in pod, calm when awake. Requesting snacks, ice cream. States his glucose is normally under control and doesn't require insulin.
[2021-12-26 17:44] VITALS: BP 126/74; PULSE 86; RESP 17; TEMP 36.6; O2SAT 99
--- NOTE | 2021-12-26 17:51 | PC.ADMIT ---
PT admitted [place] [facility] [place] with a diagnosis of MDD recurrent episode with psychotic features, stimulant use d/o, and PTSD. PT is calm and cooperative with admission process. PT reports that he was hearing and seeing things that other people told him were not there. PT states the voices were telling him to harm himself and other people. PT declined to discuss further stating that he was off his medications and is no longer hearing or seeing things. PT continues to endorse SI, denies plan or intent at this time. PT denies HI or thoughts of harming others at this time. PT states he was also having flash backs of past trauma. PT reports drinking 1/2 gallon daily for a while , pt is denying detox symptoms and states his last drink was several days ago. PT offers vague responses to questions, pt appears to be responding internally and is preoccupied. PT reports that he has two court cases coming up on the and , one is for breaking and entering a car, he states he was looking for a place to sleep. Tox screen was positive for fentanyl, cocaine, marijuana. PT reports feeling safe on the unit and states he will come to staff if feeling unsafe. 15 minute safety checks initiated for safety.
[2021-12-26 21:26] LABS: Glucose, Whole Blood 190 mg/dL (60-115)
[2021-12-26] MEDS: traZODone HCL 50 MG TABLET 150 MG PO (22:36)
[2021-12-26] MEDS: Insulin Lispro 100 UNIT/ML 3 ML VIAL SUBCUT (22:37)
[2021-12-26 22:43] VITALS: BP 135/63; PULSE 94; TEMP 36.2; O2SAT 96
[2021-12-27 09:00] VITALS: BP 125/77; PULSE 85; RESP 17; TEMP 36.4; O2SAT 96
[2021-12-27] MEDS: Sertraline HCL 100 MG TABLET PO (09:01)
[2021-12-27] MEDS: Divalproex Sodium ER 500 MG TAB.ER.24H PO ×2 (09:01→22:14)
[2021-12-27 09:06] LABS: Glucose, Whole Blood 163 mg/dL (60-115)
[2021-12-27 09:17] LABS: Estimated Average Glucose 160 mg/dL; Hemoglobin A1c % 7.2 %
[2021-12-27 09:39] LABS: Alanine Aminotransferase 30 U/L (0-40); Albumin Level 3.3 g/dL (3.5-5.0); Alkaline Phosphatase 113 U/L (39-117); Anion Gap 9 (12-20); Aspartate Amino Transferase 16 U/L (5-37); Bilirubin Total 0.3 mg/dL (0.0-1.0); Blood Urea Nitrogen 16 mg/dL (9-16); Calcium 9.2 mg/dL (8.4-10.2); Carbon Dioxide 31 mmol/L (22-29); Chloride 104 mmol/L (96-108); Cholesterol 179 mg/dL; Creatinine Clr Calc Pharmacy 82.4; Estimated Glomerular Filt Rate > 60; Glucose Fasting 145 mg/dL (60-99); HDL Cholesterol 41 mg/dL; LDL Cholesterol Calculated 120 mg/dl; Potassium 4.7 mmol/L (3.3-5.1); Sodium 139 mmol/L (135-145); Total Protein 6.5 g/dL (6.5-8.0); Triglycerides 90 mg/dL
[2021-12-27 09:40] LABS: Thyroid Stimulating Hormone 0.61 uIU/mL (0.32-4.0)
[2021-12-27 09:59] LABS: Folate 11.2 ng/mL (> or = 4.0); Vitamin B12 588 pg/mL (200-900)
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
--- NOTE | 2021-12-27 15:07 | MHC.CLN ---
NUTRITION CHANGED DIET TO DIABETIC 2000 KCAL. A1C=7.2 ON 12/27. HX OF ELEVATED A1C WITH 09/17/20 A1C GREATER THAN 14.
[2021-12-27] MEDS: hydrOXYzine HCL 25 MG TABLET PO (22:14)
[2021-12-27] MEDS: Ibuprofen 400 MG TABLET PO (22:14)
[2021-12-27] MEDS: traZODone HCL 50 MG TABLET 150 MG PO (22:15)
--- NOTE | 2021-12-28 09:29 | HO.PSYCHPN ---
Subjective Subjective Date of Service: 12/28/21 Reason For Visit: SI,CAH Subjective Notes: Conditional Voluntary Healthcare Proxy: No Guardianship: No Interim History: Patient was seen and discussed in rounds today. Records and plans were reviewed. He is slowly settling in. He is isolative and sleeping his room most of the time. He refused vital signs and point of care. No complaints. No suicidal ideations. Eating adequately and sleeping excessively. No changes were made today Review of Systems Review of Systems Yes all other systems are reviewed and are negative Mental Status Exam Mental Status Exam Narrative: In today's visit he is alert, oriented and somewhat responsive. Normal speech. No eye contact. Affect is constricted and flat. No signs of psychosis. No SI/HI. Cognitively he has slow thought processes. Judgment is intact Diagnostics Vital Signs (24Hr): BMI result Body Mass Index 36.2 Labs Results: 12/24/21 20:11 12/27/21 08:45 Labs: Laboratory Results - last 48 hr 12/26/21 12/26/21 12/27/21 12:48 21:22 08:45 Sodium 139 Potassium 4.7 Chloride 104 Carbon Dioxide 31 H Anion Gap 9 L BUN 16 Creatinine 1.25 Estim Creat Clear Calc 82.4 Estimated GFR > 60 POC Glucose 190 H Fasting Glucose 145 H D Estimat Average Glucose Hemoglobin A1c % Calcium 9.2 Total Bilirubin 0.3 AST 16 D ALT 30 Alkaline Phosphatase 113 Total Protein 6.5 Albumin 3.3 L Triglycerides 90 Cholesterol 179 LDL Cholesterol, Calc 120 HDL Cholesterol 41 Vitamin B12 Folate TSH 0.61 COVID-19 (JACOB) Negative COVID-19 Clin Com See Note 12/27/21 12/27/21 12/27/21 08:45 08:45 09:03 Sodium Potassium Chloride Carbon Dioxide Anion Gap BUN Creatinine Estim Creat Clear Calc Estimated GFR POC Glucose 163 H Fasting Glucose Estimat Average Glucose 160 Hemoglobin A1c % 7.2 Calcium Total Bilirubin AST ALT Alkaline Phosphatase Total Protein Albumin Triglycerides Cholesterol LDL Cholesterol, Calc HDL Cholesterol Vitamin B12 588 Folate 11.2 TSH COVID-19 (JACOB) COVID-19 Clin Com Imaging Radiology Impressions: ITS Impressions Venous Duplex 12/24/21 20:55 IMPRESSION: No DVT demonstrated in either lower extremity. Medications Medications Current Medications Acetaminophen (Acetaminophen 325 Mg Tablet) 650 mg PO Q6H PRN PRN Reason: Headache/Pain Mild Scale (1-3) Al Hydroxide/Mg Hydroxide (Magnesium Hydrox/Alum Hydrox 30 Ml Oral.Susp) 30 ml PO Q6H PRN PRN Reason: Heartburn/Nausea Divalproex Sodium (Divalproex Sodium Er 500 Mg Tab.Er.24h) 500 mg PO TID [facility] Last Admin: 12/27/21 22:14 Dose: 500 mg Documented by: Hydroxyzine HCl (Hydroxyzine Hcl 25 Mg Tablet) 25 mg PO QID [facility] Last Admin: 12/27/21 22:14 Dose: 25 mg Documented by: Ibuprofen (Ibuprofen 400 Mg Tablet) 400 mg PO TID [facility] Last Admin: 12/27/21 22:14 Dose: 400 mg Documented by: Insulin Human Lispro (Insulin Lispro 100 Unit/Ml 3 Ml Vial) 0 unit SUBCUT QID [facility]; Protocol Last Admin: 12/27/21 22:18 Dose: Not Given Documented by: Magnesium Hydroxide (Milk Of Magnesia 30 Ml Oral.Susp) 30 ml PO DAILY PRN PRN Reason: Constipation Nicotine (Nicotine 21 Mg Patch.Td24) 21 mg TRANSDERMA DAILY [facility] Last Admin: 12/27/21 09:11 Dose: Not Given Documented by: Nicotine Polacrilex (Nicotine Polacrilex 2 Mg Gum) 4 mg BUCCAL Q4H PRN PRN Reason: Nicotine Cravings Olanzapine (Olanzapine 5 Mg Tablet) 5 mg PO DAILY [facility] Olanzapine (Olanzapine 10 Mg Tablet) 10 mg PO BEDTIME [facility] Olanzapine (Olanzapine 5 Mg Tablet) 5 mg PO Q6H PRN PRN Reason: agitation Pharmacy Consult (Consult Rx Perform Med Rec) 1 each MISCELLANE ONCE PRN PRN Reason: Consult order Sertraline HCl (Sertraline Hcl 50 Mg Tablet) 50 mg PO DAILY [facility] Trazodone HCl (Trazodone Hcl 50 Mg Tablet) 150 mg PO BEDTIME [facility] Last Admin: 12/27/21 22:15 Dose: 150 mg Documented by: Trazodone HCl (Trazodone Hcl 50 Mg Tablet) 50 mg PO BEDTIME PRN PRN Reason: Insomnia Allergies Allergies Allergy/AdvReac Type Severity Reaction Status Date / Time No Known Allergies Allergy Verified 12/24/21 19:36 Assessment & Plan Assessment & Plan (1) Suicidal ideation: Status: Acute Code(s): R45.851 - Suicidal ideations Plan 12/28/2021: Continue current regimen and plans I spent minutes with the patient and/or on the patient floor today, greater than?50% of which was spent counseling/coordinating care. Reason for contiued inpatient stay Substantial Risk for: harm to self
[2021-12-28 09:39] LABS: Glucose, Whole Blood 137 mg/dL (60-115)
[2021-12-28] MEDS: Ibuprofen 400 MG TABLET PO ×3 (09:51→22:00)
[2021-12-28] MEDS: hydrOXYzine HCL 25 MG TABLET PO ×2 (09:51→22:01)
[2021-12-28] MEDS: Divalproex Sodium ER 500 MG TAB.ER.24H PO ×3 (09:51→22:00)
[2021-12-28] MEDS: OLANZapine 5 MG TABLET PO (09:53)
[2021-12-28] MEDS: Sertraline HCL 50 MG TABLET PO (09:53)
[2021-12-28 10:56] VITALS: BP 134/66; PULSE 78; RESP 18; TEMP 36.8; O2SAT 94
[2021-12-28] MEDS: OLANZapine 10 MG TABLET PO (22:00)
[2021-12-28] MEDS: traZODone HCL 50 MG TABLET 150 MG PO (22:00)
[2021-12-29] MEDS: Ibuprofen 400 MG TABLET PO ×3 (08:28→21:56)
[2021-12-29] MEDS: Divalproex Sodium ER 500 MG TAB.ER.24H PO ×3 (08:29→21:57)
[2021-12-29] MEDS: Sertraline HCL 50 MG TABLET PO (08:29)
[2021-12-29 08:32] VITALS: BP 111/72; PULSE 51; RESP 20; TEMP 35.9; O2SAT 97
--- NOTE | 2021-12-29 08:37 | PC.NURSE ---
Patient refused AM POC, Olanzapine, Atarax and nicotine patch.
--- NOTE | 2021-12-29 10:38 | HO.PSYCHPN ---
Subjective Subjective Date of Service: 12/29/21 Reason For Visit: SI,CAH Subjective Notes: Conditional Voluntary Interim History: Patient was seen and discussed in rounds today. Records and plans were reviewed. He has been staying in bed most of the time, refusing care including his glucose checks. He is med compliant but yesterday there was some question about whether he spit is medication out. He is going to have some mouth checks. He stays in bed because he feels that might help with the voices. Had the voices are sometimes command in nature. He has been eating adequately. I will increase his Zyprexa to 20 mg a day and stressed the importance of ingesting the medication. Some vague suicidal ideations and contracts for safety feels safe here. Review of Systems Review of Systems Auditory hallucination Yes all other systems are reviewed and are negative Diagnostics Vital Signs (24Hr): Vital Signs - 24 hr 12/28/21 10:56 12/29/21 08:32 Temperature 98.2 F 96.6 F L Pulse Rate 78 51 Respiratory Rate 18 20 Blood Pressure 134/66 111/72 Pulse Oximetry 94 97 BMI result Body Mass Index 36.2 Labs Results: 12/24/21 20:11 12/27/21 08:45 Labs: Laboratory Results - last 48 hr 12/28/21 09:35 POC Glucose 137 H Imaging Radiology Impressions: ITS Impressions Venous Duplex 12/24/21 20:55 IMPRESSION: No DVT demonstrated in either lower extremity. Medications Medications Current Medications Acetaminophen (Acetaminophen 325 Mg Tablet) 650 mg PO Q6H PRN PRN Reason: Headache/Pain Mild Scale (1-3) Al Hydroxide/Mg Hydroxide (Magnesium Hydrox/Alum Hydrox 30 Ml Oral.Susp) 30 ml PO Q6H PRN PRN Reason: Heartburn/Nausea Benzocaine (Throat Lozenge, Medicated Lozenge) 1 lozenge MUCOUS MEM Q2H PRN PRN Reason: Sore Throat Divalproex Sodium (Divalproex Sodium Er 500 Mg Tab.Er.24h) 500 mg PO TID [facility] Last Admin: 12/29/21 08:29 Dose: 500 mg Documented by: Hydroxyzine HCl (Hydroxyzine Hcl 25 Mg Tablet) 25 mg PO QID [facility] Last Admin: 12/29/21 08:29 Dose: Not Given Documented by: Ibuprofen (Ibuprofen 400 Mg Tablet) 400 mg PO TID [facility] Last Admin: 12/29/21 08:28 Dose: 400 mg Documented by: Insulin Human Lispro (Insulin Lispro 100 Unit/Ml 3 Ml Vial) 0 unit SUBCUT QID [facility]; Protocol Last Admin: 12/29/21 08:31 Dose: Not Given Documented by: Magnesium Hydroxide (Milk Of Magnesia 30 Ml Oral.Susp) 30 ml PO DAILY PRN PRN Reason: Constipation Nicotine (Nicotine 21 Mg Patch.Td24) 21 mg TRANSDERMA DAILY [facility] Last Admin: 12/29/21 08:30 Dose: Not Given Documented by: Nicotine Polacrilex (Nicotine Polacrilex 2 Mg Gum) 4 mg BUCCAL Q4H PRN PRN Reason: Nicotine Cravings Olanzapine (Olanzapine 5 Mg Tablet) 5 mg PO Q6H PRN PRN Reason: agitation Olanzapine (Olanzapine 10 Mg Tablet) 10 mg PO BID [facility] Pharmacy Consult (Consult Rx Perform Med Rec) 1 each MISCELLANE ONCE PRN PRN Reason: Consult order Sertraline HCl (Sertraline Hcl 50 Mg Tablet) 50 mg PO DAILY [facility] Last Admin: 12/29/21 08:29 Dose: 50 mg Documented by: Trazodone HCl (Trazodone Hcl 50 Mg Tablet) 150 mg PO BEDTIME [facility] Last Admin: 12/28/21 22:00 Dose: 150 mg Documented by: Trazodone HCl (Trazodone Hcl 50 Mg Tablet) 50 mg PO BEDTIME PRN PRN Reason: Insomnia Allergies Allergies Allergy/AdvReac Type Severity Reaction Status Date / Time No Known Allergies Allergy Verified 12/24/21 19:36 Assessment & Plan Assessment & Plan (1) MDD (major depressive disorder), recurrent, severe, with psychosis: Status: Acute Code(s): F33.3 - Major depressive disorder, recurrent, severe with psychotic symptoms (2) Cocaine use disorder, moderate, dependence: Status: Acute Code(s): F14.20 - Cocaine dependence, uncomplicated (3) Opioid use disorder, moderate, dependence: Status: Acute Code(s): F11.20 - Opioid dependence, uncomplicated Plan Mr. Skinner is a 51 year-old male with hx of opioid/cocaine use disorder who self presented to [facility] reporting suicidal ideation with plan to jump infront of car in setting of CAH. Utox positive for cocaine and fentanyl. We discussed risks, benefits and alternative treatment options. He agreed to start olanzapine, will lower sertraline to decrease AH. PLAN 1. admit to M3, cv 15 minutes checks for safety 2. start olanzapine 5mg po daily and 10mg po qhs 3. aftercare planning. 12/29: Continue current regimen and plans with increase of Zyprexa to 20 mg I spent minutes with the patient and/or on the patient floor today, greater than?50% of which was spent counseling/coordinating care. Reason for contiued inpatient stay Substantial Risk for: harm to self and med/psych decompensation
[2021-12-29] MEDS: hydrOXYzine HCL 25 MG TABLET PO ×2 (12:54→21:57)
[2021-12-29 12:59] LABS: Glucose, Whole Blood 166 mg/dL (60-115)
[2021-12-29] MEDS: Insulin Lispro 100 UNIT/ML 3 ML VIAL SUBCUT ×2 (13:11→22:01)
--- NOTE | 2021-12-29 17:47 | PC.NURSE ---
Patient refused 5pm POC, and 5pm Atarax.
[2021-12-29 21:57] LABS: Glucose, Whole Blood 191 mg/dL (60-115)
[2021-12-29] MEDS: OLANZapine 10 MG TABLET PO (21:57)
[2021-12-29] MEDS: traZODone HCL 50 MG TABLET 150 MG PO (21:57)
[2021-12-30 08:00] VITALS: BP 136/93; PULSE 110; RESP 18; TEMP 36.3; O2SAT 97
[2021-12-30] MEDS: OLANZapine 10 MG TABLET PO (08:54)
[2021-12-30] MEDS: Sertraline HCL 50 MG TABLET PO (08:55)
[2021-12-30] MEDS: Divalproex Sodium ER 500 MG TAB.ER.24H PO ×2 (08:55→17:10)
[2021-12-30] MEDS: hydrOXYzine HCL 25 MG TABLET PO ×2 (08:55→17:19)
[2021-12-30 09:04] LABS: Glucose, Whole Blood 110 mg/dL (60-115)
--- NOTE | 2021-12-30 12:17 | HO.PSYCHPN ---
Subjective Subjective Date of Service: 12/30/21 Reason For Visit: SI,CAH Subjective Notes: Conditional Voluntary Interim History: Pt declined taking olanzapine. However, he continues to report hearing voices telling him to hurt himsel. He reports his mood is anxious, depressed. When asked why he declined medication, pt reports he did not know what this medication was for. Pt educated on olanzapine (same as zyprexa) which pt had asked to take on Thursday. He agrees to take it. Review of Systems Review of Systems Auditory hallucination Yes all other systems are reviewed and are negative Mental Status Exam Mental Status Exam Narrative: Appearance: hospital gown, covered face in bed with blanket, fair hygiene in NAD Behavior:cooperative psychomotor: no agitation or retardation noted Speech:clear, normal rate/rhythm/volume, spontaneous Thought process:linear Thought content:hearing voices, feeling distressed Mood: anxious Affect: congruent SI:passive HI:none VH/AH:CAH of hurting himself Delusions:none Insight/judgment:fair x 2. Memory/cog: alert, oriented x3. Diagnostics Vital Signs (24Hr): BMI result Body Mass Index 36.2 Labs Results: 12/24/21 20:11 12/27/21 08:45 Labs: Laboratory Results - last 48 hr 12/29/21 12/29/21 12/30/21 12:54 21:53 08:48 POC Glucose 166 H 191 H 110 Imaging Radiology Impressions: ITS Impressions Venous Duplex 12/24/21 20:55 IMPRESSION: No DVT demonstrated in either lower extremity. Medications Medications Current Medications Acetaminophen (Acetaminophen 325 Mg Tablet) 650 mg PO Q6H PRN PRN Reason: Headache/Pain Mild Scale (1-3) Al Hydroxide/Mg Hydroxide (Magnesium Hydrox/Alum Hydrox 30 Ml Oral.Susp) 30 ml PO Q6H PRN PRN Reason: Heartburn/Nausea Benzocaine (Throat Lozenge, Medicated Lozenge) 1 lozenge MUCOUS MEM Q2H PRN PRN Reason: Sore Throat Divalproex Sodium (Divalproex Sodium Er 500 Mg Tab.Er.24h) 500 mg PO TID [facility] Last Admin: 12/30/21 08:55 Dose: 500 mg Documented by: Hydroxyzine HCl (Hydroxyzine Hcl 25 Mg Tablet) 25 mg PO QID [facility] Last Admin: 12/30/21 13:54 Dose: Not Given Documented by: Ibuprofen (Ibuprofen 400 Mg Tablet) 400 mg PO TID [facility] Last Admin: 12/30/21 08:56 Dose: Not Given Documented by: Insulin Human Lispro (Insulin Lispro 100 Unit/Ml 3 Ml Vial) 0 unit SUBCUT QID [facility]; Protocol Last Admin: 12/30/21 12:56 Dose: Not Given Documented by: Magnesium Hydroxide (Milk Of Magnesia 30 Ml Oral.Susp) 30 ml PO DAILY PRN PRN Reason: Constipation Nicotine (Nicotine 21 Mg Patch.Td24) 21 mg TRANSDERMA DAILY [facility] Last Admin: 12/30/21 08:57 Dose: Not Given Documented by: Nicotine Polacrilex (Nicotine Polacrilex 2 Mg Gum) 4 mg BUCCAL Q4H PRN PRN Reason: Nicotine Cravings Olanzapine (Olanzapine 5 Mg Tablet) 5 mg PO Q6H PRN PRN Reason: agitation Olanzapine (Olanzapine 10 Mg Tablet) 10 mg PO BID [facility] Last Admin: 12/30/21 08:54 Dose: 10 mg Documented by: Pharmacy Consult (Consult Rx Perform Med Rec) 1 each MISCELLANE ONCE PRN PRN Reason: Consult order Sertraline HCl (Sertraline Hcl 50 Mg Tablet) 50 mg PO DAILY [facility] Last Admin: 12/30/21 08:55 Dose: 50 mg Documented by: Trazodone HCl (Trazodone Hcl 50 Mg Tablet) 150 mg PO BEDTIME [facility] Last Admin: 12/29/21 21:57 Dose: 150 mg Documented by: Trazodone HCl (Trazodone Hcl 50 Mg Tablet) 50 mg PO BEDTIME PRN PRN Reason: Insomnia Allergies Allergies Allergy/AdvReac Type Severity Reaction Status Date / Time No Known Allergies Allergy Verified 12/24/21 19:36 Assessment & Plan Assessment & Plan (1) MDD (major depressive disorder), recurrent, severe, with psychosis: Status: Acute Code(s): F33.3 - Major depressive disorder, recurrent, severe with psychotic symptoms (2) Cocaine use disorder, moderate, dependence: Status: Acute Code(s): F14.20 - Cocaine dependence, uncomplicated (3) Opioid use disorder, moderate, dependence: Status: Acute Code(s): F11.20 - Opioid dependence, uncomplicated Plan Mr. Skinner is a 51 year-old male with hx of opioid/cocaine use disorder who self presented to [facility] ED reporting suicidal ideation with plan to jump infront of car in setting of CAH. Utox positive for cocaine and fentanyl. We discussed risks, benefits and alternative treatment options. He agreed to start olanzapine, will lower sertraline to decrease AH. PLAN 1. admit to M3, cv 15 minutes checks for safety 2. start olanzapine 5mg po daily and 10mg po qhs 3. aftercare planning. 12/29: Continue current regimen and plans with increase of Zyprexa to 20 mg 12/30 continue olanzapine 5mg po daily and 15mg po qhs. I spent minutes with the patient and/or on the patient floor today, greater than?50% of which was spent counseling/coordinating care. Reason for contiued inpatient stay Substantial Risk for: harm to self
--- NOTE | 2021-12-30 17:15 | PC.NURSE ---
Patient declined afternoon and evening POC- provider notified. Patient not interested in metformin as oral agent, stating 'it messes w/ my stomach,' provider aware.
[2021-12-31 08:15] LABS: Glucose, Whole Blood 156 mg/dL (60-115)
[2021-12-31 08:30] VITALS: BP 142/70; PULSE 61; RESP 18; TEMP 36.2; O2SAT 98
[2021-12-31 08:46] LABS: Ammonia 38 umol/L (13-55)
[2021-12-31] MEDS: Insulin Lispro 100 UNIT/ML 3 ML VIAL SUBCUT (09:22)
[2021-12-31] MEDS: hydrOXYzine HCL 25 MG TABLET PO ×3 (09:23→22:10)
[2021-12-31] MEDS: Sertraline HCL 50 MG TABLET PO (09:23)
[2021-12-31] MEDS: Divalproex Sodium ER 500 MG TAB.ER.24H PO ×3 (09:23→22:07)
[2021-12-31] MEDS: OLANZapine 10 MG TABLET PO ×2 (09:23→22:07)
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
[2021-12-31] MEDS: traZODone HCL 50 MG TABLET 150 MG PO (22:07)
[2022-01-01 09:00] VITALS: BP 127/63; PULSE 57; RESP 16; TEMP 36.1; O2SAT 94
[2022-01-01] MEDS: Ibuprofen 400 MG TABLET PO ×2 (09:06→15:51)
[2022-01-01] MEDS: Sertraline HCL 50 MG TABLET PO (09:06)
[2022-01-01] MEDS: hydrOXYzine HCL 25 MG TABLET PO ×3 (09:06→15:51)
[2022-01-01] MEDS: Divalproex Sodium ER 500 MG TAB.ER.24H PO ×2 (09:06→15:54)
[2022-01-01] MEDS: OLANZapine 10 MG TABLET PO ×2 (09:07→22:45)
[2022-01-01 09:12] LABS: Glucose, Whole Blood 133 mg/dL (60-115)
--- NOTE | 2022-01-01 10:17 | P.PNPSI_ITS ---
Subjective Subjective Date of Service: 01/01/22 Reason For Visit: SI,CAH Subjective Notes: Conditional Voluntary Interim History: Pt has been more visible in the unit. He denies SI/HI. He denies VH/AH. He reports sleeping well. He has shown some hypersexual behaviors, on depakote- titrating medication to a therapeutic level. Pt reports he [facility] to go to [facility]. Medication Compliance: Yes Side effects from medications: No Review of Systems Review of Systems Auditory hallucination Yes all other systems are reviewed and are negative Mental Status Exam Mental Status Exam Narrative: Appearance: hospital gown, covered face in bed with blanket, fair hygiene in NAD Behavior:cooperative psychomotor: no agitation or retardation noted Speech:clear, normal rate/rhythm/volume, spontaneous Thought process:linear Thought content:no psychosis, wanting to go to [facility] Mood: better Affect:slightly expansive SI: none HI:none VH/AH:none Delusions:none Insight/judgment:fair x 2. Memory/cog: alert, oriented x3. Diagnostics Vital Signs (24Hr): Vital Signs - 24 hr 01/01/22 21:03 01/02/22 08:27 Temperature 97.8 F 98 F Pulse Rate 68 78 Respiratory Rate 16 18 Blood Pressure 116/78 120/87 Pulse Oximetry 97 95 Oxygen Delivery Method Room Air Room Air BMI result Body Mass Index 26.2 Labs Results: 12/24/21 20:11 12/27/21 08:45 Labs: Laboratory Results - last 48 hr 01/01/22 01/01/22 01/01/22 09:05 12:29 17:41 POC Glucose 133 H 180 H 148 H Ammonia Valproic Acid COVID-19 ([facility]) COVID-19 Clin Com Hep Bs Antigen Hep Bs Antibody Hep B Core Total Ab Hepatitis C Ab (EIA) HIV 1&2 Ab/P24 Ag 4thGn S. pyogenes GrpA DANILO 01/01/22 01/01/22 01/01/22 17:58 17:58 19:55 POC Glucose Ammonia Valproic Acid COVID-19 ([facility]ACOB) Negative COVID-19 Clin Com See Note Hep Bs Antigen Negative Hep Bs Antibody NONREACTIVE Hep B Core Total Ab Nonreactive Hepatitis C Ab (EIA) Nonreactive HIV 1&2 Ab/P24 Ag 4thGn Nonreactive S. pyogenes GrpA DANILO 01/01/22 01/01/22 01/02/22 19:55 22:03 07:54 POC Glucose 225 H 287 H Ammonia Valproic Acid COVID-19 ([facility]ACOB) COVID-19 Clin Com Hep Bs Antigen Hep Bs Antibody Hep B Core Total Ab Hepatitis C Ab (EIA) HIV 1&2 Ab/P24 Ag 4thGn S. pyogenes GrpA DANILO Negative 01/02/22 01/02/22 08:55 08:55 POC Glucose Ammonia 43 Valproic Acid 61.0 COVID-19 ([facility]ACOB) COVID-19 Clin Com Hep Bs Antigen Hep Bs Antibody Hep B Core Total Ab Hepatitis C Ab (EIA) HIV 1&2 Ab/P24 Ag 4thGn S. pyogenes GrpA DANILO Imaging Radiology Impressions: ITS Impressions Venous Duplex 12/24/21 20:55 IMPRESSION: No DVT demonstrated in either lower extremity. Medications Medications Current Medications Acetaminophen (Acetaminophen 325 Mg Tablet) 650 mg PO Q6H PRN PRN Reason: Headache/Pain Mild Scale (1-3) Al Hydroxide/Mg Hydroxide (Magnesium Hydrox/Alum Hydrox 30 Ml Oral.Susp) 30 ml PO Q6H PRN PRN Reason: Heartburn/Nausea Benzocaine (Throat Lozenge, Medicated Lozenge) 1 lozenge MUCOUS MEM Q2H PRN PRN Reason: Sore Throat Last Admin: 01/01/22 13:02 Dose: 1 lozenge Divalproex Sodium (Divalproex Sodium 500 Mg Tablet.Dr) 500 mg PO TID [facility] Last Admin: 01/02/22 08:31 Dose: 500 mg Insulin Human Lispro (Insulin Lispro 100 Unit/Ml 3 Ml Vial) 0 unit SUBCUT QID [facility]; Protocol Last Admin: 01/02/22 09:06 Dose: 6 unit Magnesium Hydroxide (Milk Of Magnesia 30 Ml Oral.Susp) 30 ml PO DAILY PRN PRN Reason: Constipation Nicotine (Nicotine 21 Mg Patch.Td24) 21 mg TRANSDERMA DAILY [facility] Last Admin: 01/02/22 08:31 Dose: Not Given Nicotine Polacrilex (Nicotine Polacrilex 2 Mg Gum) 4 mg BUCCAL Q4H PRN PRN Reason: Nicotine Cravings Olanzapine (Olanzapine 5 Mg Tablet) 5 mg PO Q6H PRN PRN Reason: agitation Olanzapine (Olanzapine 10 Mg Tablet) 10 mg PO BID [facility] Last Admin: 01/02/22 08:31 Dose: 10 mg Pharmacy Consult (Consult Rx Perform Med Rec) 1 each MISCELLANE ONCE PRN PRN Reason: Consult order Sertraline HCl (Sertraline Hcl 25 Mg Tablet) 25 mg PO DAILY [facility] Last Admin: 01/02/22 08:31 Dose: 25 mg Trazodone HCl (Trazodone Hcl 50 Mg Tablet) 150 mg PO BEDTIME [facility] Last Admin: 01/01/22 22:45 Dose: 150 mg Trazodone HCl (Trazodone Hcl 50 Mg Tablet) 50 mg PO BEDTIME PRN PRN Reason: Insomnia Allergies Allergies Allergy/AdvReac Type Severity Reaction Status Date / Time No Known Allergies Allergy Verified 12/24/21 19:36 Assessment & Plan Assessment & Plan (1) MDD (major depressive disorder), recurrent, severe, with psychosis: Status: Acute Code(s): F33.3 - Major depressive disorder, recurrent, severe with psychotic symptoms (2) Cocaine use disorder, moderate, dependence: Status: Acute Code(s): F14.20 - Cocaine dependence, uncomplicated (3) Opioid use disorder, moderate, dependence: Status: Acute Code(s): F11.20 - Opioid dependence, uncomplicated Plan Mr. Skinner is a 51 year-old male with hx of opioid/cocaine use disorder who self presented to [facility] reporting suicidal ideation with plan to jump infront of car in setting of CAH. Utox positive for cocaine and fentanyl. We discussed risks, benefits and alternative treatment options. He agreed to start olanzapine, will lower sertraline to decrease AH. PLAN 1. admit to [facility], cv 15 minutes checks for safety 2. start olanzapine 5mg po daily and 10mg po qhs 3. aftercare planning. 12/29: Continue current regimen and plans with increase of Zyprexa to 20 mg 12/30 continue olanzapine 5mg po daily and 15mg po qhs. 12/31 continue current medications. [facility] referrals by , but pt informed if wait list is too long he will have to step down to [facility] then follow up with [facility]. 01/01 continue current medications. I spent minutes with the patient and/or on the patient floor today, greater than?50% of which was spent counseling/coordinating care. Reason for contiued inpatient stay Substantial Risk for: harm to self and inability to function
[2022-01-01 12:32] LABS: Glucose, Whole Blood 180 mg/dL (60-115)
[2022-01-01] MEDS: Insulin Lispro 100 UNIT/ML 3 ML VIAL SUBCUT ×2 (12:42→22:46)
[2022-01-01] MEDS: Throat Lozenge, Medicated LOZENGE 1 LOZENGE MUCOUS MEM (13:02)
[2022-01-01 17:45] LABS: Glucose, Whole Blood 148 mg/dL (60-115)
[2022-01-01 20:22] LABS: Strep A Nucleic Acid Negative (Negative)
[2022-01-01 20:27] LABS: COVID-19 Test Negative (Negative)
[2022-01-01 21:03] VITALS: BP 116/78; PULSE 68; RESP 16; TEMP 36.6; O2SAT 97
[2022-01-01 22:09] LABS: Glucose, Whole Blood 225 mg/dL (60-115)
[2022-01-01] MEDS: traZODone HCL 50 MG TABLET 150 MG PO (22:45)
[2022-01-01] MEDS: Divalproex Sodium 500 MG TABLET.DR PO (22:45)
[2022-01-02 04:58] LABS: HBS Num1 1.98 mIU/mL (0-7.99); HBc Num1 0.16 S/CO (0.00-0.79); HBsAGNum1 0.25 S/CO (0.00-0.99); Hepatitis B Core Antibody Nonreactive (Nonreactive); Hepatitis B Surface Antigen Negative (Negative); ~HepC Num1 0.22 S/CO (0.00-0.79); ~Hepatitis B Surface Antibody NONREACTIVE (Nonreactive); ~Hepatitis C Antibody Nonreactive (Nonreactive)
[2022-01-02 05:01] LABS: HIV AB/AG Nonreactive (Nonreactive)
[2022-01-02 07:00] VITALS: BMI 26.2
[2022-01-02 07:58] LABS: Glucose, Whole Blood 287 mg/dL (60-115)
[2022-01-02 08:27] VITALS: BP 120/87; PULSE 78; RESP 18; TEMP 36.6; O2SAT 95
[2022-01-02] MEDS: OLANZapine 10 MG TABLET PO ×2 (08:31→20:40)
[2022-01-02] MEDS: Divalproex Sodium 500 MG TABLET.DR PO ×3 (08:31→20:40)
[2022-01-02] MEDS: Sertraline HCL 25 MG TABLET PO (08:31)
[2022-01-02] MEDS: Insulin Lispro 100 UNIT/ML 3 ML VIAL SUBCUT ×3 (09:06→20:37)
[2022-01-02 09:12] LABS: Ammonia 43 umol/L (13-55)
--- NOTE | 2022-01-02 09:12 | HO.PSYCHPN ---
Subjective Subjective Date of Service: 01/02/22 Reason For Visit: SI,CAH Subjective Notes: Conditional Voluntary Interim History: Pt reports he is sleeping and eating well. He reports no AH/VH. He denies SI/HI. He reports making calls to find [facility]. He has been visible in unit, taking medications as prescribed. Has attended some groups. Less hypersexual behaviors. Medication Compliance: Yes Side effects from medications: No Review of Systems Review of Systems Auditory hallucination Yes all other systems are reviewed and are negative Mental Status Exam Mental Status Exam Narrative: Appearance: hospital gown, covered face in bed with blanket, fair hygiene in NAD Behavior:cooperative psychomotor: no agitation or retardation noted Speech:clear, normal rate/rhythm/volume, spontaneous Thought process:linear Thought content:no psychosis, wanting to go to [facility] Mood: better Affect:slightly expansive SI: none HI:none VH/AH:none Delusions:none Insight/judgment:fair x 2. Memory/cog: alert, oriented x3. Diagnostics Vital Signs (24Hr): BMI result Body Mass Index 26.2 Labs Results: 12/24/21 20:11 12/27/21 08:45 Labs: Laboratory Results - last 48 hr 01/01/22 01/01/22 01/01/22 09:05 12:29 17:41 POC Glucose 133 H 180 H 148 H Ammonia Valproic Acid COVID-19 ([facility]) COVID-19 Clin Com Hepatitis A IgM Ab Hep Bs Antigen Hep Bs Antibody Hep B Core Total Ab Hepatitis C Ab (EIA) HIV 1&2 Ab/P24 Ag 4thGn S. pyogenes GrpA DANILO 01/01/22 01/01/22 01/01/22 17:58 17:58 19:55 POC Glucose Ammonia Valproic Acid COVID-19 ([facility]) Negative COVID-19 Clin Com See Note Hepatitis A IgM Ab Nonreactive Hep Bs Antigen Negative Hep Bs Antibody NONREACTIVE Hep B Core Total Ab Nonreactive Hepatitis C Ab (EIA) Nonreactive HIV 1&2 Ab/P24 Ag 4thGn Nonreactive S. pyogenes GrpA DANILO 01/01/22 01/01/22 01/02/22 19:55 22:03 07:54 POC Glucose 225 H 287 H Ammonia Valproic Acid COVID-19 ([facility]) COVID-19 Clin Com Hepatitis A IgM Ab Hep Bs Antigen Hep Bs Antibody Hep B Core Total Ab Hepatitis C Ab (EIA) HIV 1&2 Ab/P24 Ag 4thGn S. pyogenes GrpA DANILO Negative 01/02/22 01/02/22 01/02/22 08:55 08:55 17:43 POC Glucose 230 H Ammonia 43 Valproic Acid 61.0 COVID-19 ([facility]) COVID-19 Clin Com Hepatitis A IgM Ab Hep Bs Antigen Hep Bs Antibody Hep B Core Total Ab Hepatitis C Ab (EIA) HIV 1&2 Ab/P24 Ag 4thGn S. pyogenes GrpA DANILO 01/02/22 20:20 POC Glucose 165 H Ammonia Valproic Acid COVID-19 ([facility]) COVID-19 Clin Com Hepatitis A IgM Ab Hep Bs Antigen Hep Bs Antibody Hep B Core Total Ab Hepatitis C Ab (EIA) HIV 1&2 Ab/P24 Ag 4thGn S. pyogenes GrpA DANILO Imaging Radiology Impressions: ITS Impressions Venous Duplex 12/24/21 20:55 IMPRESSION: No DVT demonstrated in either lower extremity. Medications Medications Current Medications Acetaminophen (Acetaminophen 325 Mg Tablet) 650 mg PO Q6H PRN PRN Reason: Headache/Pain Mild Scale (1-3) Al Hydroxide/Mg Hydroxide (Magnesium Hydrox/Alum Hydrox 30 Ml Oral.Susp) 30 ml PO Q6H PRN PRN Reason: Heartburn/Nausea Benzocaine (Throat Lozenge, Medicated Lozenge) 1 lozenge MUCOUS MEM Q2H PRN PRN Reason: Sore Throat Last Admin: 01/01/22 13:02 Dose: 1 lozenge Divalproex Sodium (Divalproex Sodium 500 Mg Tablet.Dr) 500 mg PO TID [facility] Last Admin: 01/02/22 20:40 Dose: 500 mg Insulin Human Lispro (Insulin Lispro 100 Unit/Ml 3 Ml Vial) 0 unit SUBCUT QID [facility]; Protocol Last Admin: 01/03/22 09:01 Dose: Not Given Magnesium Hydroxide (Milk Of Magnesia 30 Ml Oral.Susp) 30 ml PO DAILY PRN PRN Reason: Constipation Nicotine (Nicotine 21 Mg Patch.Td24) 21 mg TRANSDERMA DAILY [facility] Last Admin: 01/02/22 08:31 Dose: Not Given Nicotine Polacrilex (Nicotine Polacrilex 2 Mg Gum) 4 mg BUCCAL Q4H PRN PRN Reason: Nicotine Cravings Olanzapine (Olanzapine 5 Mg Tablet) 5 mg PO Q6H PRN PRN Reason: agitation Olanzapine (Olanzapine 10 Mg Tablet) 10 mg PO BID [facility] Last Admin: 01/02/22 20:40 Dose: 10 mg Pharmacy Consult (Consult Rx Perform Med Rec) 1 each MISCELLANE ONCE PRN PRN Reason: Consult order Sertraline HCl (Sertraline Hcl 25 Mg Tablet) 25 mg PO DAILY [facility] Last Admin: 01/02/22 08:31 Dose: 25 mg Trazodone HCl (Trazodone Hcl 50 Mg Tablet) 150 mg PO BEDTIME [facility] Last Admin: 01/02/22 20:40 Dose: 150 mg Trazodone HCl (Trazodone Hcl 50 Mg Tablet) 50 mg PO BEDTIME PRN PRN Reason: Insomnia Triamcinolone Acetonide (Triamcinolone Acet 0.1 % Cream 15 Gm Tube) 1 appl TOPICAL BID [facility] Last Admin: 01/02/22 20:49 Dose: 1 appl Allergies Allergies Allergy/AdvReac Type Severity Reaction Status Date / Time No Known Allergies Allergy Verified 12/24/21 19:36 Assessment & Plan Assessment & Plan (1) MDD (major depressive disorder), recurrent, severe, with psychosis: Status: Acute Code(s): F33.3 - Major depressive disorder, recurrent, severe with psychotic symptoms (2) Cocaine use disorder, moderate, dependence: Status: Acute Code(s): F14.20 - Cocaine dependence, uncomplicated (3) Opioid use disorder, moderate, dependence: Status: Acute Code(s): F11.20 - Opioid dependence, uncomplicated Plan Mr. Skinner is a 51 year-old male with hx of opioid/cocaine use disorder who self presented to [facility] reporting suicidal ideation with plan to jump infront of car in setting of CAH. Utox positive for cocaine and fentanyl. We discussed risks, benefits and alternative treatment options. He agreed to start olanzapine, will lower sertraline to decrease AH. PLAN 1. admit to M3, cv 15 minutes checks for safety 2. start olanzapine 5mg po daily and 10mg po qhs 3. aftercare planning. 12/29: Continue current regimen and plans with increase of Zyprexa to 20 mg 12/30 continue olanzapine 5mg po daily and 15mg po qhs. 12/31 continue current medications. [facility] referrals by SW, but pt informed if wait list is too long he will have to step down to [facility] then follow up with [facility]. 01/01 continue current medications. 01/02 continue current medications. I spent minutes with the patient and/or on the patient floor today, greater than?50% of which was spent counseling/coordinating care. Reason for contiued inpatient stay Substantial Risk for: stable for discharge
[2022-01-02 17:48] LABS: Glucose, Whole Blood 230 mg/dL (60-115)
[2022-01-02 20:24] LABS: Glucose, Whole Blood 165 mg/dL (60-115)
[2022-01-02] MEDS: traZODone HCL 50 MG TABLET 150 MG PO (20:40)
[2022-01-02] MEDS: Triamcinolone Acet 0.1 % Cream 15 GM TUBE 1 APPL TOPICAL (20:49)
[2022-01-03 07:55] LABS: Hepatitis A Antibody IgM 0.14 Index (0-0.79); ~Hepatitis A Antibody IgM Nonreactive (Nonreactive)
[2022-01-03 10:36] VITALS: BP 113/72; PULSE 84; RESP 16; TEMP 36.2; O2SAT 95
[2022-01-03] MEDS: Sertraline HCL 25 MG TABLET PO (10:39)
[2022-01-03] MEDS: OLANZapine 10 MG TABLET PO ×2 (10:39→22:39)
[2022-01-03] MEDS: Divalproex Sodium 500 MG TABLET.DR PO ×3 (10:39→22:39)
[2022-01-03] MEDS: Triamcinolone Acet 0.1 % Cream 15 GM TUBE 1 APPL TOPICAL ×2 (10:40→22:48)
--- NOTE | 2022-01-03 12:15 | HO.PSYCHPN ---
Subjective Subjective Date of Service: 01/03/22 Reason For Visit: SI,CAH Subjective Notes: Conditional Voluntary Interim History: Pt reports his mood is good. He continues to report sleeping and eating well. No SI/HI. No VH/AH. he is taking medications as prescribed. visible and inappropriate boundaries with female staff. awaiting for [facility] bed. Review of Systems Review of Systems Auditory hallucination Yes all other systems are reviewed and are negative Mental Status Exam Mental Status Exam Narrative: Appearance: hospital gown, covered face in bed with blanket, fair hygiene in NAD Behavior:cooperative psychomotor: no agitation or retardation noted Speech:clear, normal rate/rhythm/volume, spontaneous Thought process:linear Thought content:no psychosis, wanting to go to [facility] Mood: better Affect:slightly expansive SI: none HI:none VH/AH:none Delusions:none Insight/judgment:fair x 2. Memory/cog: alert, oriented x3. Diagnostics Vital Signs (24Hr): Vital Signs - 24 hr 01/05/22 09:00 01/05/22 21:14 Temperature 97.6 F 97.6 F Pulse Rate 84 90 Respiratory Rate 18 16 Blood Pressure 137/79 128/72 Pulse Oximetry 95 94 Oxygen Delivery Method Room Air Room Air BMI result Body Mass Index 26.2 Labs Results: 12/24/21 20:11 12/27/21 08:45 Labs: Laboratory Results - last 48 hr 01/04/22 01/04/22 01/04/22 09:01 15:23 18:04 POC Glucose 324 H 213 H 229 H 01/04/22 01/05/22 01/05/22 22:08 08:53 13:12 POC Glucose 224 H 222 H 258 H 01/05/22 01/05/22 17:17 21:07 POC Glucose 171 H 175 H Imaging Radiology Impressions: ITS Impressions Venous Duplex 12/24/21 20:55 IMPRESSION: No DVT demonstrated in either lower extremity. Medications Medications Current Medications Acetaminophen (Acetaminophen 325 Mg Tablet) 650 mg PO Q6H PRN PRN Reason: Headache/Pain Mild Scale (1-3) Al Hydroxide/Mg Hydroxide (Magnesium Hydrox/Alum Hydrox 30 Ml Oral.Susp) 30 ml PO Q6H PRN PRN Reason: Heartburn/Nausea Benzocaine (Throat Lozenge, Medicated Lozenge) 1 lozenge MUCOUS MEM Q2H PRN PRN Reason: Sore Throat Last Admin: 01/01/22 13:02 Dose: 1 lozenge Divalproex Sodium (Divalproex Sodium 500 Mg Tablet.Dr) 500 mg PO TID [facility] Last Admin: 01/05/22 21:52 Dose: 500 mg Insulin Human Lispro (Insulin Lispro 100 Unit/Ml 3 Ml Vial) 0 unit SUBCUT QID [facility]; Protocol Last Admin: 01/05/22 22:04 Dose: 2 unit Magnesium Hydroxide (Milk Of Magnesia 30 Ml Oral.Susp) 30 ml PO DAILY PRN PRN Reason: Constipation Nicotine (Nicotine 21 Mg Patch.Td24) 21 mg TRANSDERMA DAILY [facility] Last Admin: 01/05/22 09:29 Dose: Not Given Nicotine Polacrilex (Nicotine Polacrilex 2 Mg Gum) 4 mg BUCCAL Q4H PRN PRN Reason: Nicotine Cravings Olanzapine (Olanzapine 5 Mg Tablet) 5 mg PO Q6H PRN PRN Reason: agitation Olanzapine (Olanzapine 10 Mg Tablet) 10 mg PO BID [facility] Last Admin: 01/05/22 21:52 Dose: 10 mg Pharmacy Consult (Consult Rx Perform Med Rec) 1 each MISCELLANE ONCE PRN PRN Reason: Consult order Sertraline HCl (Sertraline Hcl 25 Mg Tablet) 25 mg PO DAILY [facility] Last Admin: 01/05/22 09:28 Dose: 25 mg Trazodone HCl (Trazodone Hcl 50 Mg Tablet) 150 mg PO BEDTIME [facility] Last Admin: 01/05/22 21:53 Dose: 150 mg Trazodone HCl (Trazodone Hcl 50 Mg Tablet) 50 mg PO BEDTIME PRN PRN Reason: Insomnia Last Admin: 01/04/22 22:25 Dose: 50 mg Triamcinolone Acetonide (Triamcinolone Acet 0.1 % Cream 15 Gm Tube) 1 appl TOPICAL BID [facility] Last Admin: 01/05/22 22:05 Dose: 1 appl Allergies Allergies Allergy/AdvReac Type Severity Reaction Status Date / Time No Known Allergies Allergy Verified 12/24/21 19:36 Assessment & Plan Assessment & Plan (1) MDD (major depressive disorder), recurrent, severe, with psychosis: Status: Acute Code(s): F33.3 - Major depressive disorder, recurrent, severe with psychotic symptoms (2) Cocaine use disorder, moderate, dependence: Status: Acute Code(s): F14.20 - Cocaine dependence, uncomplicated (3) Opioid use disorder, moderate, dependence: Status: Acute Code(s): F11.20 - Opioid dependence, uncomplicated Plan Mr. Skinner is a 51 year-old male with hx of opioid/cocaine use disorder who self presented to [facility] reporting suicidal ideation with plan to jump infront of car in setting of CAH. Utox positive for cocaine and fentanyl. We discussed risks, benefits and alternative treatment options. He agreed to start olanzapine, will lower sertraline to decrease AH. PLAN 1. admit to [facility], cv 15 minutes checks for safety 2. start olanzapine 5mg po daily and 10mg po qhs 3. aftercare planning. 12/29: Continue current regimen and plans with increase of Zyprexa to 20 mg 12/30 continue olanzapine 5mg po daily and 15mg po qhs. 12/31 continue current medications. [facility] referrals by SW, but pt informed if wait list is too long he will have to step down to [facility] then follow up with [facility]. 01/01 continue current medications. 01/02 continue current medications. 01/03 continue current plan I spent minutes with the patient and/or on the patient floor today, greater than?50% of which was spent counseling/coordinating care. Reason for contiued inpatient stay Substantial Risk for: stable for discharge
[2022-01-03 12:27] LABS: Glucose, Whole Blood 225 mg/dL (60-115)
[2022-01-03] MEDS: Insulin Lispro 100 UNIT/ML 3 ML VIAL SUBCUT ×3 (13:10→22:39)
[2022-01-03 17:31] LABS: Glucose, Whole Blood 198 mg/dL (60-115)
[2022-01-03 21:00] VITALS: BP 121/74; PULSE 101; RESP 20; TEMP 36.7; O2SAT 95
[2022-01-03 22:35] LABS: Glucose, Whole Blood 227 mg/dL (60-115)
[2022-01-03] MEDS: traZODone HCL 50 MG TABLET 150 MG PO (22:39)
[2022-01-04 04:12] LABS: N. gonorrhoeae RNA TMA, Throat NOT DETECTED (NOT DETECTED)
[2022-01-04 05:12] LABS: Herpes Simplex Type 1 IgG <0.90 index
--- NOTE | 2022-01-04 07:12 | P.PNPSI_ITS ---
Subjective Subjective Date of Service: 01/04/22 Reason For Visit: SI,CAH Subjective Notes: Conditional Voluntary Interim History: Pt continues to report sleeping and eating well. No SI/HI. No VH/AH. he is taking medications as prescribed. visible and inappropriate boundaries with female staff. Medication Compliance: Yes Side effects from medications: No Review of Systems Review of Systems Auditory hallucination Yes all other systems are reviewed and are negative Mental Status Exam Mental Status Exam Narrative: Appearance: hospital gown, covered face in bed with blanket, fair hygiene in NAD Behavior:cooperative psychomotor: no agitation or retardation noted Speech:clear, normal rate/rhythm/volume, spontaneous Thought process:linear Thought content:no psychosis, wanting to go to [facility] Mood: better Affect:slightly expansive SI: none HI:none VH/AH:none Delusions:none Insight/judgment:fair x 2. Memory/cog: alert, oriented x3. Diagnostics Vital Signs (24Hr): Vital Signs - 24 hr 01/05/22 09:00 01/05/22 21:14 Temperature 97.6 F 97.6 F Pulse Rate 84 90 Respiratory Rate 18 16 Blood Pressure 137/79 128/72 Pulse Oximetry 95 94 Oxygen Delivery Method Room Air Room Air BMI result Body Mass Index 26.2 Labs Results: 12/24/21 20:11 12/27/21 08:45 Labs: Laboratory Results - last 48 hr 01/04/22 01/04/22 01/04/22 09:01 15:23 18:04 POC Glucose 324 H 213 H 229 H 01/04/22 01/05/22 01/05/22 22:08 08:53 13:12 POC Glucose 224 H 222 H 258 H 01/05/22 01/05/22 17:17 21:07 POC Glucose 171 H 175 H Imaging Radiology Impressions: ITS Impressions Venous Duplex 12/24/21 20:55 IMPRESSION: No DVT demonstrated in either lower extremity. Medications Medications Current Medications Acetaminophen (Acetaminophen 325 Mg Tablet) 650 mg PO Q6H PRN PRN Reason: Headache/Pain Mild Scale (1-3) Al Hydroxide/Mg Hydroxide (Magnesium Hydrox/Alum Hydrox 30 Ml Oral.Susp) 30 ml PO Q6H PRN PRN Reason: Heartburn/Nausea Benzocaine (Throat Lozenge, Medicated Lozenge) 1 lozenge MUCOUS MEM Q2H PRN PRN Reason: Sore Throat Last Admin: 01/01/22 13:02 Dose: 1 lozenge Divalproex Sodium (Divalproex Sodium 500 Mg Tablet.Dr) 500 mg PO TID [facility] Last Admin: 01/05/22 21:52 Dose: 500 mg Insulin Human Lispro (Insulin Lispro 100 Unit/Ml 3 Ml Vial) 0 unit SUBCUT QID [facility]; Protocol Last Admin: 01/05/22 22:04 Dose: 2 unit Magnesium Hydroxide (Milk Of Magnesia 30 Ml Oral.Susp) 30 ml PO DAILY PRN PRN Reason: Constipation Nicotine (Nicotine 21 Mg Patch.Td24) 21 mg TRANSDERMA DAILY [facility] Last Admin: 01/05/22 09:29 Dose: Not Given Nicotine Polacrilex (Nicotine Polacrilex 2 Mg Gum) 4 mg BUCCAL Q4H PRN PRN Reason: Nicotine Cravings Olanzapine (Olanzapine 5 Mg Tablet) 5 mg PO Q6H PRN PRN Reason: agitation Olanzapine (Olanzapine 10 Mg Tablet) 10 mg PO BID [facility] Last Admin: 01/05/22 21:52 Dose: 10 mg Pharmacy Consult (Consult Rx Perform Med Rec) 1 each MISCELLANE ONCE PRN PRN Reason: Consult order Sertraline HCl (Sertraline Hcl 25 Mg Tablet) 25 mg PO DAILY [facility] Last Admin: 01/05/22 09:28 Dose: 25 mg Trazodone HCl (Trazodone Hcl 50 Mg Tablet) 150 mg PO BEDTIME [facility] Last Admin: 01/05/22 21:53 Dose: 150 mg Trazodone HCl (Trazodone Hcl 50 Mg Tablet) 50 mg PO BEDTIME PRN PRN Reason: Insomnia Last Admin: 01/04/22 22:25 Dose: 50 mg Triamcinolone Acetonide (Triamcinolone Acet 0.1 % Cream 15 Gm Tube) 1 appl TOPICAL BID [facility] Last Admin: 01/05/22 22:05 Dose: 1 appl Allergies Allergies Allergy/AdvReac Type Severity Reaction Status Date / Time No Known Allergies Allergy Verified 12/24/21 19:36 Assessment & Plan Assessment & Plan (1) MDD (major depressive disorder), recurrent, severe, with psychosis: Status: Acute Code(s): F33.3 - Major depressive disorder, recurrent, severe with psychotic symptoms (2) Cocaine use disorder, moderate, dependence: Status: Acute Code(s): F14.20 - Cocaine dependence, uncomplicated (3) Opioid use disorder, moderate, dependence: Status: Acute Code(s): F11.20 - Opioid dependence, uncomplicated Plan Mr. Skinner is a 51 year-old male with hx of opioid/cocaine use disorder who sandra f presented to [facility] ED reporting suicidal ideation with plan to jump infront of car in setting of CAH. Utox positive for cocaine and fentanyl. We discussed risks, benefits and alternative treatment options. He agreed to start olanzapine, will lower sertraline to decrease AH. PLAN 1. admit to M3, cv 15 minutes checks for safety 2. start olanzapine 5mg po daily and 10mg po qhs 3. aftercare planning. 12/29: Continue current regimen and plans with increase of Zyprexa to 20 mg 12/30 continue olanzapine 5mg po daily and 15mg po qhs. 12/31 continue current medications. [facility] referrals by SW, but pt informed if wait list is too long he will have to step down to care home then follow up with [facility]. 01/01 continue current medications. 01/02 continue current medications. 01/04 continue current plan I spent minutes with the patient and/or on the patient floor today, greater than?50% of which was spent counseling/coordinating care. Reason for contiued inpatient stay Substantial Risk for: stable for discharge
[2022-01-04 08:00] VITALS: BP 109/72; PULSE 88; RESP 16; TEMP 36.5; O2SAT 98
[2022-01-04] MEDS: OLANZapine 10 MG TABLET PO ×2 (08:53→22:26)
[2022-01-04] MEDS: Divalproex Sodium 500 MG TABLET.DR PO ×3 (08:53→22:26)
[2022-01-04] MEDS: Sertraline HCL 25 MG TABLET PO (08:53)
[2022-01-04 09:05] LABS: Glucose, Whole Blood 324 mg/dL (60-115)
[2022-01-04] MEDS: Insulin Lispro 100 UNIT/ML 3 ML VIAL SUBCUT ×3 (09:07→22:27)
[2022-01-04] MEDS: Triamcinolone Acet 0.1 % Cream 15 GM TUBE 1 APPL TOPICAL (09:08)
[2022-01-04 15:27] LABS: Glucose, Whole Blood 213 mg/dL (60-115)
[2022-01-04 18:09] LABS: Glucose, Whole Blood 229 mg/dL (60-115)
[2022-01-04 22:13] LABS: Glucose, Whole Blood 224 mg/dL (60-115)
[2022-01-04 22:20] VITALS: BP 146/94; PULSE 72; RESP 16; TEMP 36.2; O2SAT 95
[2022-01-04] MEDS: traZODone HCL 50 MG TABLET 150 MG PO (22:25)
[2022-01-04] MEDS: traZODone HCL 50 MG TABLET PO (22:25)
--- NOTE | 2022-01-05 07:13 | HO.PSYCHPN ---
Subjective Subjective Date of Service: 01/05/22 Reason For Visit: SI,CAH Subjective Notes: Conditional Voluntary Interim History: Pt reports his mood is good. He continues to report sleeping and eating well. No SI/HI. No VH/AH. he is taking medications as prescribed. visible and inappropriate boundaries with female staff. awaiting for [facility] bed. Review of Systems Review of Systems Auditory hallucination Yes all other systems are reviewed and are negative Mental Status Exam Mental Status Exam Narrative: Appearance: hospital gown, covered face in bed with blanket, fair hygiene in NAD Behavior:cooperative psychomotor: no agitation or retardation noted Speech:clear, normal rate/rhythm/volume, spontaneous Thought process:linear Thought content:no psychosis, wanting to go to [facility] Mood: better Affect:slightly expansive SI: none HI:none VH/AH:none Delusions:none Insight/judgment:fair x 2. Memory/cog: alert, oriented x3. Diagnostics Vital Signs (24Hr): Vital Signs - 24 hr 01/05/22 09:00 01/05/22 21:14 Temperature 97.6 F 97.6 F Pulse Rate 84 90 Respiratory Rate 18 16 Blood Pressure 137/79 128/72 Pulse Oximetry 95 94 Oxygen Delivery Method Room Air Room Air BMI result Body Mass Index 26.2 Labs Results: 12/24/21 20:11 12/27/21 08:45 Labs: Laboratory Results - last 48 hr 01/04/22 01/04/22 01/04/22 09:01 15:23 18:04 POC Glucose 324 H 213 H 229 H 01/04/22 01/05/22 01/05/22 22:08 08:53 13:12 POC Glucose 224 H 222 H 258 H 01/05/22 01/05/22 17:17 21:07 POC Glucose 171 H 175 H Imaging Radiology Impressions: ITS Impressions Venous Duplex 12/24/21 20:55 IMPRESSION: No DVT demonstrated in either lower extremity. Medications Medications Current Medications Acetaminophen (Acetaminophen 325 Mg Tablet) 650 mg PO Q6H PRN PRN Reason: Headache/Pain Mild Scale (1-3) Al Hydroxide/Mg Hydroxide (Magnesium Hydrox/Alum Hydrox 30 Ml Oral.Susp) 30 ml PO Q6H PRN PRN Reason: Heartburn/Nausea Benzocaine (Throat Lozenge, Medicated Lozenge) 1 lozenge MUCOUS MEM Q2H PRN PRN Reason: Sore Throat Last Admin: 01/01/22 13:02 Dose: 1 lozenge Divalproex Sodium (Divalproex Sodium 500 Mg Tablet.Dr) 500 mg PO TID [facility] Last Admin: 01/05/22 21:52 Dose: 500 mg Insulin Human Lispro (Insulin Lispro 100 Unit/Ml 3 Ml Vial) 0 unit SUBCUT QID [facility]; Protocol Last Admin: 01/05/22 22:04 Dose: 2 unit Magnesium Hydroxide (Milk Of Magnesia 30 Ml Oral.Susp) 30 ml PO DAILY PRN PRN Reason: Constipation Nicotine (Nicotine 21 Mg Patch.Td24) 21 mg TRANSDERMA DAILY [facility] Last Admin: 01/05/22 09:29 Dose: Not Given Nicotine Polacrilex (Nicotine Polacrilex 2 Mg Gum) 4 mg BUCCAL Q4H PRN PRN Reason: Nicotine Cravings Olanzapine (Olanzapine 5 Mg Tablet) 5 mg PO Q6H PRN PRN Reason: agitation Olanzapine (Olanzapine 10 Mg Tablet) 10 mg PO BID [facility] Last Admin: 01/05/22 21:52 Dose: 10 mg Pharmacy Consult (Consult Rx Perform Med Rec) 1 each MISCELLANE ONCE PRN PRN Reason: Consult order Sertraline HCl (Sertraline Hcl 25 Mg Tablet) 25 mg PO DAILY [facility] Last Admin: 01/05/22 09:28 Dose: 25 mg Trazodone HCl (Trazodone Hcl 50 Mg Tablet) 150 mg PO BEDTIME [facility] Last Admin: 01/05/22 21:53 Dose: 150 mg Trazodone HCl (Trazodone Hcl 50 Mg Tablet) 50 mg PO BEDTIME PRN PRN Reason: Insomnia Last Admin: 01/04/22 22:25 Dose: 50 mg Triamcinolone Acetonide (Triamcinolone Acet 0.1 % Cream 15 Gm Tube) 1 appl TOPICAL BID [facility] Last Admin: 01/05/22 22:05 Dose: 1 appl Allergies Allergies Allergy/AdvReac Type Severity Reaction Status Date / Time No Known Allergies Allergy Verified 12/24/21 19:36 Assessment & Plan Assessment & Plan (1) MDD (major depressive disorder), recurrent, severe, with psychosis: Status: Acute Code(s): F33.3 - Major depressive disorder, recurrent, severe with psychotic symptoms (2) Cocaine use disorder, moderate, dependence: Status: Acute Code(s): F14.20 - Cocaine dependence, uncomplicated (3) Opioid use disorder, moderate, dependence: Status: Acute Code(s): F11.20 - Opioid dependence, uncomplicated Plan Mr. Skinner is a 51 year-old male with hx of opioid/cocaine use disorder who self presented to [facility] ED reporting suicidal ideation with plan to jump infront of car in setting of CAH. Utox positive for cocaine and fentanyl. We discussed risks, benefits and alternative treatment options. He agreed to start olanzapine, will lower sertraline to decrease AH. PLAN 1. admit to M3, cv 15 minutes checks for safety 2. start olanzapine 5mg po daily and 10mg po qhs 3. aftercare planning. 12/29: Continue current regimen and plans with increase of Zyprexa to 20 mg 12/30 continue olanzapine 5mg po daily and 15mg po qhs. 12/31 continue current medications. [facility] referrals by SW, but pt informed if wait list is too long he will have to step down to [facility] then follow up with [facility]. 01/01 continue current medications. 01/02 continue current medications. 01/04 continue current plan 01/05 continue tx plan I spent minutes with the patient and/or on the patient floor today, greater than?50% of which was spent counseling/coordinating care. Reason for contiued inpatient stay Substantial Risk for: stable for discharge
[2022-01-05 09:00] VITALS: BP 137/79; PULSE 84; RESP 18; TEMP 36.4; O2SAT 95
[2022-01-05 09:03] LABS: Glucose, Whole Blood 222 mg/dL (60-115)
[2022-01-05] MEDS: Insulin Lispro 100 UNIT/ML 3 ML VIAL SUBCUT ×4 (09:25→22:04)
[2022-01-05] MEDS: Divalproex Sodium 500 MG TABLET.DR PO ×3 (09:28→21:52)
[2022-01-05] MEDS: Sertraline HCL 25 MG TABLET PO (09:28)
[2022-01-05] MEDS: OLANZapine 10 MG TABLET PO ×2 (09:28→21:52)
[2022-01-05 13:16] LABS: Glucose, Whole Blood 258 mg/dL (60-115)
[2022-01-05 17:21] LABS: Glucose, Whole Blood 171 mg/dL (60-115)
[2022-01-05 21:10] LABS: Glucose, Whole Blood 175 mg/dL (60-115)
[2022-01-05 21:14] VITALS: BP 128/72; PULSE 90; RESP 16; TEMP 36.4; O2SAT 94
[2022-01-05] MEDS: traZODone HCL 50 MG TABLET 150 MG PO (21:53)
[2022-01-05] MEDS: Triamcinolone Acet 0.1 % Cream 15 GM TUBE 1 APPL TOPICAL (22:05)
[2022-01-06] MEDS: OLANZapine 10 MG TABLET PO ×2 (09:07→22:22)
[2022-01-06] MEDS: Sertraline HCL 25 MG TABLET PO (09:07)
[2022-01-06] MEDS: Divalproex Sodium 500 MG TABLET.DR PO ×3 (09:07→22:22)
[2022-01-06 13:08] LABS: Glucose, Whole Blood 283 mg/dL (60-115)
[2022-01-06] MEDS: Insulin Lispro 100 UNIT/ML 3 ML VIAL SUBCUT ×2 (13:14→22:23)
[2022-01-06] MEDS: Acetaminophen 325 MG TABLET 650 MG PO (14:34)
--- NOTE | 2022-01-06 15:33 | P.PNPSI_ITS ---
Subjective Subjective Date of Service: 01/06/22 Reason For Visit: SI,CAH Subjective Notes: Conditional Voluntary Interim History: Pt reports mood okay. He denies VH/AH He reports last night he heard some voices but thinks related to past trauma. He denies SI/HI. He met with his transition coach. Taking medications as prescribed. Medication Compliance: Yes Side effects from medications: No Attending Groups: No Review of Systems Review of Systems Auditory hallucination Yes all other systems are reviewed and are negative Mental Status Exam Mental Status Exam Narrative: Appearance: hospital gown, covered face in bed with blanket, fair hygiene in NAD Behavior:cooperative psychomotor: no agitation or retardation noted Speech:clear, normal rate/rhythm/volume, spontaneous Thought process:linear Thought content:no psychosis, wanting to go to [facility] Mood: better Affect:slightly expansive SI: none HI:none VH/AH:none Delusions:none Insight/judgment:fair x 2. Memory/cog: alert, oriented x3. Diagnostics Vital Signs (24Hr): Vital Signs - 24 hr 01/05/22 21:14 Temperature 97.6 F Pulse Rate 90 Respiratory Rate 16 Blood Pressure 128/72 Pulse Oximetry 94 Oxygen Delivery Method Room Air BMI result Body Mass Index 26.2 Labs Results: 12/24/21 20:11 12/27/21 08:45 Labs: Laboratory Results - last 48 hr 01/04/22 01/04/22 01/05/22 18:04 22:08 08:53 POC Glucose 229 H 224 H 222 H 01/05/22 01/05/22 01/05/22 13:12 17:17 21:07 POC Glucose 258 H 171 H 175 H 01/06/22 12:52 POC Glucose 283 H Imaging Radiology Impressions: ITS Impressions Venous Duplex 12/24/21 20:55 IMPRESSION: No DVT demonstrated in either lower extremity. Medications Medications Current Medications Acetaminophen (Acetaminophen 325 Mg Tablet) 650 mg PO Q6H PRN PRN Reason: Headache/Pain Mild Scale (1-3) Last Admin: 01/06/22 14:34 Dose: 650 mg Al Hydroxide/Mg Hydroxide (Magnesium Hydrox/Alum Hydrox 30 Ml Oral.Susp) 30 ml PO Q6H PRN PRN Reason: Heartburn/Nausea Benzocaine (Throat Lozenge, Medicated Lozenge) 1 lozenge MUCOUS MEM Q2H PRN PRN Reason: Sore Throat Last Admin: 01/01/22 13:02 Dose: 1 lozenge Divalproex Sodium (Divalproex Sodium 500 Mg Tablet.Dr) 500 mg PO TID [facility] Last Admin: 01/06/22 15:18 Dose: 500 mg Insulin Human Lispro (Insulin Lispro 100 Unit/Ml 3 Ml Vial) 0 unit SUBCUT QID [facility]; Protocol Last Admin: 01/06/22 13:14 Dose: 6 unit Magnesium Hydroxide (Milk Of Magnesia 30 Ml Oral.Susp) 30 ml PO DAILY PRN PRN Reason: Constipation Nicotine (Nicotine 21 Mg Patch.Td24) 21 mg TRANSDERMA DAILY [facility] Last Admin: 01/06/22 09:09 Dose: Not Given Nicotine Polacrilex (Nicotine Polacrilex 2 Mg Gum) 4 mg BUCCAL Q4H PRN PRN Reason: Nicotine Cravings Olanzapine (Olanzapine 5 Mg Tablet) 5 mg PO Q6H PRN PRN Reason: agitation Olanzapine (Olanzapine 10 Mg Tablet) 10 mg PO BID [facility] Last Admin: 01/06/22 09:07 Dose: 10 mg Pharmacy Consult (Consult Rx Perform Med Rec) 1 each MISCELLANE ONCE PRN PRN Reason: Consult order Sertraline HCl (Sertraline Hcl 25 Mg Tablet) 25 mg PO DAILY [facility] Last Admin: 01/06/22 09:07 Dose: 25 mg Trazodone HCl (Trazodone Hcl 50 Mg Tablet) 150 mg PO BEDTIME [facility] Last Admin: 01/05/22 21:53 Dose: 150 mg Trazodone HCl (Trazodone Hcl 50 Mg Tablet) 50 mg PO BEDTIME PRN PRN Reason: Insomnia Last Admin: 01/04/22 22:25 Dose: 50 mg Triamcinolone Acetonide (Triamcinolone Acet 0.1 % Cream 15 Gm Tube) 1 appl TOPICAL BID [facility] Last Admin: 01/06/22 09:09 Dose: Not Given Allergies Allergies Allergy/AdvReac Type Severity Reaction Status Date / Time No Known Allergies Allergy Verified 12/24/21 19:36 Assessment & Plan Assessment & Plan (1) MDD (major depressive disorder), recurrent, severe, with psychosis: Status: Acute Code(s): F33.3 - Major depressive disorder, recurrent, severe with psychotic symptoms (2) Cocaine use disorder, moderate, dependence: Status: Acute Code(s): F14.20 - Cocaine dependence, uncomplicated (3) Opioid use disorder, moderate, dependence: Status: Acute Code(s): F11.20 - Opioid dependence, uncomplicated Plan Mr. Skinner is a 51 year-old male with hx of opioid/cocaine use disorder who self presented to [facility] ED reporting suicidal ideation with plan to jump infront of car in setting of CAH. Utox positive for cocaine and fentanyl. We discussed risks, benefits and alternative treatment options. He agreed to start olanzapine, will lower sertraline to decrease AH. PLAN 1. admit to M3, cv 15 minutes checks for safety 2. start olanzapine 5mg po daily and 10mg po qhs 3. aftercare planning. 12/29: Continue current regimen and plans with increase of Zyprexa to 20 mg 12/30 continue olanzapine 5mg po daily and 15mg po qhs. 12/31 continue current medications. [facility] referrals by SW, but pt informed if wait list is too long he will have to step down to skilled nursing then follow up with [facility]. 01/01 continue current medications. 01/02 continue current medications. 01/03 continue current plan I spent minutes with the patient and/or on the patient floor today, greater than?50% of which was spent counseling/coordinating care. Reason for contiued inpatient stay Substantial Risk for: stable for discharge
[2022-01-06 17:41] LABS: Glucose, Whole Blood 150 mg/dL (60-115)
[2022-01-06 18:00] VITALS: BP 138/84; PULSE 93; RESP 16; TEMP 36.6; O2SAT 94
[2022-01-06 22:19] LABS: Glucose, Whole Blood 321 mg/dL (60-115)
[2022-01-06] MEDS: traZODone HCL 50 MG TABLET 150 MG PO (22:22)
[2022-01-06] MEDS: Triamcinolone Acet 0.1 % Cream 15 GM TUBE 1 APPL TOPICAL (22:23)
[2022-01-07 09:03] LABS: Glucose, Whole Blood 311 mg/dL (60-115)
[2022-01-07] MEDS: OLANZapine 10 MG TABLET PO (09:06)
[2022-01-07] MEDS: Sertraline HCL 25 MG TABLET PO (09:06)
[2022-01-07] MEDS: Divalproex Sodium 500 MG TABLET.DR PO (09:06)
[2022-01-07] MEDS: Insulin Lispro 100 UNIT/ML 3 ML VIAL SUBCUT (09:06)
--- NOTE | 2022-01-07 10:48 | PM.PSYDC ---
DS: Providers Provider Date of Service: 01/07/22 Date of admission: 12/26/21 16:21 Primary care physician: Azam Chadwick MD DS: Diagnosis Discharge Diagnosis (1) MDD (major depressive disorder), recurrent, severe, with psychosis: Status: Acute (2) Cocaine use disorder, moderate, dependence: Status: Acute (3) Opioid use disorder, moderate, dependence: Status: Acute DS: Medications Discharge Medications Home Medications: Home Medications Medication Instructions Recorded Confirmed blood glucose control, low #1 ea 06/14/20 08/29/21 divalproex 500 mg tablet,extended 500 mg PO TID 12/24/21 12/24/21 release 24 hr hydroxyzine HCl 25 mg tablet 1 tab PO QID 12/24/21 12/24/21 ibuprofen 400 mg tablet 1 tab PO TID 12/24/21 12/24/21 nicotine (polacrilex) 4 mg gum 4 mg PO Q4H PRN Nicotine Cravings 12/24/21 12/24/21 nicotine 21 mg/24 hr daily 1 patch topical DAILY 12/24/21 12/24/21 transdermal patch sertraline 100 mg tablet 1 tab PO DAILY 12/24/21 12/24/21 trazodone 150 mg tablet 1 tab PO BEDTIME 12/24/21 12/24/21 Previous Rx's Medication Instructions Recorded flash glucose scanning reader #1 ea 11/28/20 (FreeStyle Antonia 2 [place]) flash glucose sensor (FreeStyle #2 ea 11/28/20 Antonia 2 Sensor) blood sugar diagnostic (FreeStyle #100 ea 08/01/21 Lite Strips) pen needle, diabetic 31 gauge x #100 ea 08/29/21 5/16 (1st Tier Unifine Pentips) Mental Status Exam Mental Status Exam Narrative: Appearance: hospital gown, covered face in bed with blanket, fair hygiene in NAD Behavior:cooperative psychomotor: no agitation or retardation noted Speech:clear, normal rate/rhythm/volume, spontaneous Thought process:linear Thought content:no psychosis, wanting to go to [facility] Mood: better Affect:slightly expansive SI: none HI:none VH/AH:none Delusions:none Insight/judgment:fair x 2. Memory/cog: alert, oriented x3. Data Data Completed and Pending Completed studies during hospitalization [Text1]: 01/01/22 01/01/22 01/01/22 09:05 12:29 17:41 POC Glucose 133 H 180 H 148 H Ammonia Throat N gonorr RNA TMA Valproic Acid COVID-19 (JACOB) COVID-19 Clin Com Hepatitis A IgM Ab Hep Bs Antigen Hep Bs Antibody Hep B Core Total Ab Hepatitis C Ab (EIA) HSV I IgG Ab HSV II IgG HIV 1&2 Ab/P24 Ag 4thGn S. pyogenes GrpA DANILO 01/01/22 01/01/22 01/01/22 17:58 17:58 17:58 POC Glucose Ammonia Throat N gonorr RNA TMA Valproic Acid COVID-19 (JACOB) COVID-19 Clin Com Hepatitis A IgM Ab Nonreactive Hep Bs Antigen Negative Hep Bs Antibody NONREACTIVE Hep B Core Total Ab Nonreactive Hepatitis C Ab (EIA) Nonreactive HSV I IgG Ab <0.90 HSV II IgG 23.00 H HIV 1&2 Ab/P24 Ag 4thGn Nonreactive S. pyogenes GrpA DANILO 01/01/22 01/01/22 01/01/22 19:55 19:55 19:55 POC Glucose Ammonia Throat N gonorr RNA TMA NOT DETECTED Valproic Acid COVID-19 (JACOB) Negative COVID-19 Clin Com See Note Hepatitis A IgM Ab Hep Bs Antigen Hep Bs Antibody Hep B Core Total Ab Hepatitis C Ab (EIA) HSV I IgG Ab HSV II IgG HIV 1&2 Ab/P24 Ag 4thGn S. pyogenes GrpA DANILO Negative 01/01/22 01/02/22 01/02/22 22:03 07:54 08:55 POC Glucose 225 H 287 H Ammonia 43 Throat N gonorr RNA TMA Valproic Acid COVID-19 (JACOB) COVID-19 Clin Com Hepatitis A IgM Ab Hep Bs Antigen Hep Bs Antibody Hep B Core Total Ab Hepatitis C Ab (EIA) HSV I IgG Ab HSV II IgG HIV 1&2 Ab/P24 Ag 4thGn S. pyogenes GrpA DANILO 01/02/22 01/02/22 01/02/22 08:55 17:43 20:20 POC Glucose 230 H 165 H Ammonia Throat N gonorr RNA TMA Valproic Acid 61.0 COVID-19 (JACOB) COVID-19 Clin Com Hepatitis A IgM Ab Hep Bs Antigen Hep Bs Antibody Hep B Core Total Ab Hepatitis C Ab (EIA) HSV I IgG Ab HSV II IgG HIV 1&2 Ab/P24 Ag 4thGn S. pyogenes GrpA DANILO 01/03/22 01/03/22 01/03/22 12:23 17:27 22:30 POC Glucose 225 H 198 H 227 H Ammonia Throat N gonorr RNA TMA Valproic Acid COVID-19 (JACOB) COVID-19 Clin Com Hepatitis A IgM Ab Hep Bs Antigen Hep Bs Antibody Hep B Core Total Ab Hepatitis C Ab (EIA) HSV I IgG Ab HSV II IgG HIV 1&2 Ab/P24 Ag 4thGn S. pyogenes GrpA DANILO 01/04/22 01/04/22 01/04/22 09:01 15:23 18:04 POC Glucose 324 H 213 H 229 H Ammonia Throat N gonorr RNA TMA Valproic Acid COVID-19 (JACOB) COVID-19 Clin Com Hepatitis A IgM Ab Hep Bs Antigen Hep Bs Antibody Hep B Core Total Ab Hepatitis C Ab (EIA) HSV I IgG Ab HSV II IgG HIV 1&2 Ab/P24 Ag 4thGn S. pyogenes GrpA DANILO 01/04/22 01/05/22 01/05/22 22:08 08:53 13:12 POC Glucose 224 H 222 H 258 H Ammonia Throat N gonorr RNA TMA Valproic Acid COVID-19 (JACOB) COVID-19 Clin Com Hepatitis A IgM Ab Hep Bs Antigen Hep Bs Antibody Hep B Core Total Ab Hepatitis C Ab (EIA) HSV I IgG Ab HSV II IgG HIV 1&2 Ab/P24 Ag 4thGn S. pyogenes GrpA DANILO 01/05/22 01/05/22 01/06/22 17:17 21:07 12:52 POC Glucose 171 H 175 H 283 H Ammonia Throat N gonorr RNA TMA Valproic Acid COVID-19 (JACOB) COVID-19 Clin Com Hepatitis A IgM Ab Hep Bs Antigen Hep Bs Antibody Hep B Core Total Ab Hepatitis C Ab (EIA) HSV I IgG Ab HSV II IgG HIV 1&2 Ab/P24 Ag 4thGn S. pyogenes GrpA DANILO 01/06/22 01/06/22 01/07/22 17:37 22:12 09:00 POC Glucose 150 H 321 H 311 H Ammonia Throat N gonorr RNA TMA Valproic Acid COVID-19 (JACOB) COVID-19 Clin Com Hepatitis A IgM Ab Hep Bs Antigen Hep Bs Antibody Hep B Core Total Ab Hepatitis C Ab (EIA) HSV I IgG Ab HSV II IgG HIV 1&2 Ab/P24 Ag 4thGn S. pyogenes GrpA DANILO Imaging Diagnostic Imaging Impressions Venous Duplex 12/24/21 20:55 IMPRESSION: No DVT demonstrated in either lower extremity. DS: Summary Hospital Course Hospital Course: HPI: Subjective Notes: Baird Warning and Conditional Voluntary Narrative: Mr. Skinner is a 51 year-old male with hx of opioid use disorder, cocaine use disorder, self presented to [facility] reporting CAH telling him to hut himself and others. Utox positive for cocaine, cannabinoids and fentanyl. On the unit, pt reports he is currently homeless. He reports hearing voices all my life. However, review of his psychotropic medications mostly include antidepressants not antipsychotics. He continues to endorse depressed mood, anhedonia, CAH. He reports hearing voices all day long and this being very overwhelming and distressing. He is currently homeless. He does not have stable OP providers. He reports feeling tired and overwhelmed and this limiting interview. Past Psychiatric History: Inpatient: reports previous inpatient admission for psychiatric reasons in [facility] years ago. OP: none CSS/Detox: multiple times. ? Suicide attempts: pt report hx of but does not provide more details Past medication trials: sertraline, depakote. Medical Evaluation Reviewed: Yes HOSPITAL COURSE On the unit, pt was admitted on a CV and placed on 15 minutes checks for safety. Pt reported hearing voices for a long time. He reported using cocaine. He stayed in bed for most part for the first 3 days. After discussing risks, benefits and alternative treatment options, he agreed to start olanzapine which was titrated to 20mg po qhs. We discussed trying different antipsychotic with less impact on insulin resistance as he has DM, but he declined as he reported this medication was helpful for his mood/AH. He denied suicidal ideation through most of this admission. He had some episodes of inappropriate boundaries with females- no overt matt but suspect combination of expansive mood and AXIS II traits. He had requested referrals for CSS- which were sent to [facility] and other facilities. He asked to be discharged prior to finding bed- he was also psychiatrically stable and waiting for bed not reason to stay on unit along. He stated he had a job interview and was eager to leave today. SOme incidences of poor boundaries with females- but no need for restraints. Time spent discussing smoking cessation with patient: 3 to 10 minutes Status at Discharge Cognitive/behavioral status at discharge: Pt with bright, non labile affect. Future oriented as he is hoping to see friends and go to [place] interview although wonder if this is true. No SI/HI. No signs of aggression towards self or others. No VH/AH. No delusional content noted or reported. Time Spent with Patient Time attestation: Total time spent providing and/or coordinating discharge services: Time spent: Less than 30 minutes Discharge Plan Discharge Patient Disposition: Hospice - Home Discharge Diagnosis: Bipolar type 2 Disorder [place] 2 traits cocaine use disorder opioid use disorder Referrals: Therapy & Psychiatry [Other] (Referral submitted, they will call you to provide appointments. Please call if you have not heard from them within a few days of discharge) [facility] ([facility]) [Other] Azam Chadwick MD [Primary Care Provider] - 01/21/22 2:30 pm Discharge Medications: New nicotine 21 mg/24 hr Patch 24 Hour 21 mg transdermal DAILY Qty: 30 0RF divalproex 500 mg Tablet,Delayed Release (Dr/Ec) 500 mg PO TID Qty: 90 0RF olanzapine 20 mg tablet 20 mg PO BEDTIME Qty: 30 0RF insulin lispro [Humalog U-100 Insulin] 100 unit/mL Solution See Protocol subcut QID Qty: 10 0RF Protocol: Insulin Correction Scale Less than or equal to 110 ---- Give (units): 0 111 to 150 Give (units): 0 151 to 200 Give (units): 2 201 to 250 Give (units): 4 251 to 300 Give (units): 6 301 to 350 Give (units): 8 Greater than 350 Give (units): 10 Call MD if Blood Glucose > : 350 naloxone [Narcan] 4 mg/actuation spray,non-aerosol 4 mg intranasal Q2M PRN (Reason: opioid overdose) Qty: 2 0RF Rx Instructions: spray 1 dose into ONE nostril; alternate nostrils w each dose until help arrives Continued (DME) FreeStyle Lite Strips Strip See Rx Instructions .Route Qty: 100 0RF Rx Instructions: Test 3 times daily ibuprofen 400 mg tablet 1 tab PO TID hydroxyzine HCl 25 mg tablet 1 tab PO QID trazodone 150 mg tablet 1 tab PO BEDTIME Qty: 30 0RF (DME) pen needle, diabetic [1st Tier Unifine Pentips] 31 gauge x 5/16 needle See Rx Instructions .ROUTE .MEDSUPPLY Qty: 100 0RF Rx Instructions: Use Daily (DME) FreeStyle Antonia 2 Sensor Kit See Rx Instructions .ROUTE .MEDSUPPLY Qty: 2 11RF Rx Instructions: Once every 14 days (DME) FreeStyle Antonia 2 [place] Misc See Rx Instructions .ROUTE .MEDSUPPLY Qty: 1 0RF Rx Instructions: As directed Discontinued divalproex 500 mg tablet extended release 24 hr 500 mg PO TID sertraline 100 mg tablet 1 tab PO DAILY nicotine (polacrilex) 4 mg gum 4 mg PO Q4H PRN (Reason: Nicotine Cravings) nicotine 21 mg/24 hr patch 24 hour 1 patch topical DAILY No Action (DME) blood glucose control, low Solution See Rx Instructions .ROUTE .MEDSUPPLY Qty: 1 Rx Instructions: As directed Discharge Orders: Discharge Order (Routine); Ordered 01/07/22 Ordered By: Kathryn Bey Diet: diabetic diet Activity on Discharge: As tolerated Stand Alone Forms: Patient Portal Discharge page, Community Support Care Plan Goals: 1. maintain mood 2. No SI/HI 3. Less AH/VH 4. Harm reduction narcan rx sent to pharmacy, [facility] pt reports using more cocaine than opioids. Health Concerns: FOllow up with PCP- DM care and management. Plan of Treatment: 1. take medications as prescribed 2. Go to nearest ED or call 911 in event of emergency. Assessment: Pt with brighter, non labile mood. No SI/HI. No signs of psychosis. No signs of aggression towards self or others.
== END 2022-01-07 11:38 | disposition hospice, home (50) | DRG 751 ==
LOC: HO.ED 22:01 → HO.PADLT16 12-26 16:46
PROVIDERS: Physician Assistant; Registered Nurse; Admitting Provider Psychiatry & Neurology Psychiatry; Emergency Provider Emergency Medicine; PCP Internal Medicine; Visit Provider Social Worker
DX: F33.3 Major depressive disorder, recurrent, severe with psychotic symptoms (principal); F11.20 Opioid dependence, uncomplicated; F14.20 Cocaine dependence, uncomplicated; F17.210 Nicotine dependence, cigarettes, uncomplicated; Z20.822 Contact with and (suspected) exposure to COVID-19; Z71.6 Tobacco abuse counseling; Z79.4 Long term (current) use of insulin; Z79.899 Other long term (current) drug therapy
CPT/HCPCS: 36415; 80048; 80053; 80061; 80076; 80143; 80164; 80179; 80307; 81003; 82077; 82140; 82607; 82746; 82947; 83036; 83735; 84443; 85025; 86695; 86696; 86704; 86706; 86709; 86803; 87340; 87389; 87591; 87635; 87651; 93005; 93970; 99285; Q0163

== ENCOUNTER 2022-01-12 22:17 | Emergency (ER) | payer OTHER, SELFPAY ==
[2022-01-12 22:19] VITALS: BP 100/70; PULSE 85; RESP 16; TEMP 36.4; O2SAT 96; BMI 39.1
--- NOTE | 2022-01-12 22:22 | ED_ITS ---
HPI - Psych General Chief Complaint: Psychiatric Symptoms Time Seen by Provider: 01/13/22 04:06 Source: patient and EMS Mode of arrival: EMS Limitations: no limitations History of Present Illness HPI Narrative: Patient comes to the emergency room via EMS, complaining of auditory hallucinations, suicidal ideation. Patient states that she went to visit her daughter today, states that ?it's a touchy story? and he just does not want to live anymore. Patient denies homicidal ideation. Seems that there is an issue with the patient's substance abuse which is triggering family problems. Also, patient stopped taking all his medications over a week ago. Related Data Home Medications Medication Instructions Recorded Confirmed blood glucose control, low #1 ea 06/14/20 08/29/21 ibuprofen 400 mg tablet 1 tab PO TID 12/24/21 01/12/22 Previous Rx's Medication Instructions Recorded flash glucose scanning reader #1 ea 11/28/20 (FreeStyle Antonia 2 [place]) flash glucose sensor (FreeStyle #2 ea 11/28/20 Antonia 2 Sensor) blood sugar diagnostic (FreeStyle #100 ea 08/01/21 Lite Strips) pen needle, diabetic 31 gauge x #100 ea 08/29/21/ (1st Tier Unifine Pentips) divalproex 500 mg tablet,delayed 500 mg PO TID #90 tabs 01/07/22 release insulin lispro 100 unit/mL See Protocol subcut QID #10 mL 01/07/22 subcutaneous solution (Humalog U-100 Insulin) nicotine 21 mg/24 hr daily 21 mg transdermal DAILY #30 ea 01/07/22 transdermal patch olanzapine 20 mg tablet 20 mg PO BEDTIME #30 tabs 01/07/22 trazodone 150 mg tablet 1 tab PO BEDTIME #30 tabs 01/07/22 Allergies Allergy/AdvReac Type Severity Reaction Status Date / Time No Known Allergies Allergy Verified 12/24/21 19:36 Review of Systems Review of Systems: Constitutional : No Weight loss, No Fever, No Chills, No Night Sweats, No Fatigue, No Malaise ENT/Mouth : No Hearing loss, No Ear Pain, No Nasal Congestion, No Sinus Pain, No Hoarseness, No sore throat, No Rhinorrhea, No Swallowing Difficulty Eyes: No Eye Pain, No Swelling, No Redness, No Foreign Body, No Discharge, No Vision Changes Cardiovascular : No Chest Pain, No SOB, No Dyspnea on Exertion, No Orthopnea, No Edema, No Palpitations Respiratory : No Cough, No Sputum, No Wheezing, No Smoke Exposure, No Dyspnea Gastrointestinal : No Nausea, No Vomiting, No Diarrhea, No Constipation, No abdominal Pain, No Hematochezia, No Melena Genitourinary : no irregular bleeding, No Dysuria, No Urinary Frequency, No Hematuria, No Urinary Incontinence, No Urgency, No Flank Pain, No Urinary Flow Changes, No Hesitancy Musculoskeletal : No joint pain, No Myalgias, No Joint Swelling Skin : No Skin Lesions, No rash Neuro : No Weakness, No Numbness, No Paresthesias, No Loss of Consciousness, No Dizziness, No Headache Psych : Complaining of anxiety, depression, SI, no HI Heme/Lymph: No Bruising, No Bleeding,No Lymphadenopathy Endocrine : No Polyuria, No Polydipsia, No Temperature Intolerance PMFSH Past Medical History Medical History Cataract Cocaine use disorder Depression HTN (hypertension) Hx of bipolar disorder Surgical History Hx of circumcision Hx of exploratory laparotomy Family History Family History Mother Diabetic acidosis, type II Father Diabetic acidosis, type II Social History Social History Household Members: None Housing: Homeless Are you a primary manager managed care to a significant other at home: No Do you presently have visiting nurse or other home services: No Alcohol intake: never Patient Tobacco Use Status: Current everyday Tobacco user Tobacco use type: Cigarette Cigarette Packs Per Day: 0.5 Cigarettes Per Day: 10.0 Years Smoked: 30 e-Cigarette/Vaping Use: Never Used Second Hand Smoke Exposure: No Substance Use Type: Crack/Cocaine Advance Directives: No Advance Directives Information Provided: Yes service: No Current occupational status: unemployed Current occupation: right handed Sexual orientation: Did not discuss. Cognitive needs: No Hearing needs: No Vision needs: No Physical Exam Vital Signs: Vital Signs: Last Vital Signs Temp 97.6 F 01/12/22 22:19 Pulse 85 01/12/22 22:19 Resp 16 01/12/22 22:19 BP 100/70 01/12/22 22:19 Pulse Ox 96 01/12/22 22:19 O2 Del Method 01/12/22 22:19 BMI result Body Mass Index 39.1 Const: Other: Appearance: Alert. Oriented X3. Eyes: Pupils equal, round and reactive to light. ENT: Pharynx normal. Neck: Normal inspection. Neck supple. No lymph nodes noted. No crepitus CVS: Normal heart rate and rhythm. Pulses normal. Normal S1 and S2 Respiratory: No respiratory distress. Breath sounds normal. No Wheezing. No rales Abdomen: Soft and nontender. No rigidity. No distention. Skin: Skin warm and dry. Normal skin color. Normal skin turgor. Extremities: No lower extremity edema. No Lacerations. No Rash Neuro: Oriented X 3. No motor deficit. No sensory deficit. Moving all extremities. No slurred speech. CN 2 through 12 grossly intact Psych: calm, cooperative, anxious, teary Course Course Course Narrative: BPH and consult pending. Physician after patient started at 22:24 patient is on a Section 12. 4 a.m., [facility]. Patient had issues with his sister couple of days ago, not acutely. Patient is currently homeless. When [facility] staff spoke to the patient regarding detox or shelters, patient became very agitated and somewhat aggressive and verbally abusive. per [facility], seems that patient is trying to use inpatient psych hospitalization at as longterm. Recommendations: Re-evaluate the patient in the morning. U tox pending. [facility] - Psych Lab Data Result diagrams: 01/12/22 22:40 01/12/22 22:40 Labs: Lab Results 01/12/22 01/12/22 01/12/22 Range/Units 22:21 22:27 22:40 WBC 5.7 (4.8-10.8) X10*3/uL RBC 4.35 L (4.60-5.80) X10*6/uL Hgb 12.7 L (14.0-18.0) g/dl Hct 38.6 L (42.0-52.0) % MCV 88.7 (80.0-98.0) fL MCH 29.2 (27.0-33.0) pg MCHC 32.9 (31.0-36.0) g/dl RDW 12.9 (11.0-16.0) % Plt Count 224 (160-400) X10*3/uL MPV 10.6 (9.4-12.4) fL Immature Gran % (Auto) 0.2 (0.0-0.4) % Neut % (Auto) 38.2 L (45-73) % Lymph % (Auto) 45.8 H (20-40) % [place] % (Auto) 11.4 H (2-11) % Eos % (Auto) 3.5 (0-4) % Baso % (Auto) 0.9 (0-2) % Lymph # (Auto) 2.6 (1.2-4.9) X10*3/uL [place] # (Auto) 0.7 (0.1-1.2) X10*3/uL Eos # (Auto) 0.2 (0.0-0.4) X10*3/uL Baso # (Auto) 0.1 (0.0-0.2) X10*3/uL Abs Immat Gran (auto) 0.01 (0.00-0.03) X10*3/uL Absolute Neuts (auto) 2.2 (2.0-8.3) x10*3/uL Absolute Nucleated RBC 0.000 (0.0-0.012) X10*3/uL Nucleated RBC % (auto) 0.0 (0.0-0.2) /100WBC Sodium (135-145) mmol/L Potassium (3.3-5.1) mmol/L Chloride (96-108) mmol/L Carbon Dioxide (22-29) mmol/L Anion Gap (12-20) BUN (9-16) mg/dL Creatinine (0.5-1.4) mg/dL Estim Creat Clear Calc Estimated GFR POC Glucose 222 H (60-115) mg/dL Random Glucose (60-115) mg/dL Calcium (8.4-10.2) mg/dL Magnesium (1.6-2.6) mg/dL Total Bilirubin (0.0-1.0) mg/dL Direct Bilirubin (0.0-0.5) mg/dL AST (5-37) U/L ALT (0-40) U/L Alkaline Phosphatase (39-117) U/L Total Protein (6.5-8.0) g/dL Albumin (3.5-5.0) g/dL Urine Color Urine Appearance Urine pH (5.0-8.0) Ur Specific [place] (1.005-1.025) Urine Protein (NEG-TRACE) MG/DL Urine Glucose (UA) (NEG) MG/DL Urine Ketones (NEG) MG/DL Urine Blood (NEG) Urine Nitrite (NEG) Ur Leukocyte Esterase (NEG) Urine Opiates Screen (Not Detect) Urine Fentanyl Screen (Not Detect) Ur Barbiturates Screen (Not Detect) Valproic Acid (50.0-100.0) mcg/mL Ur Phencyclidine Scrn (Not Detect) Ur Amphetamines Screen (Not Detect) U Benzodiazepines Scrn (Not Detect) Urine Cocaine Screen (Not Detect) U Marijuana (THC) Screen (Not Detect) Ethyl Alcohol mg/dL COVID-19 (JACOB) Negative (Negative) COVID-19 Clin Com See Note 01/12/22 01/12/22 01/12/22 Range/Units 22:40 22:40 22:40 WBC (4.8-10.8) X10*3/uL RBC (4.60-5.80) X10*6/uL Hgb (14.0-18.0) g/dl Hct (42.0-52.0) % MCV (80.0-98.0) fL MCH (27.0-33.0) pg MCHC (31.0-36.0) g/dl RDW (11.0-16.0) % Plt Count (160-400) X10*3/uL MPV (9.4-12.4) fL Immature Gran % (Auto) (0.0-0.4) % Neut % (Auto) (45-73) % Lymph % (Auto) (20-40) % [place] % (Auto) (2-11) % Eos % (Auto) (0-4) % Baso % (Auto) (0-2) % Lymph # (Auto) (1.2-4.9) X10*3/uL [place] # (Auto) (0.1-1.2) X10*3/uL Eos # (Auto) (0.0-0.4) X10*3/uL Baso # (Auto) (0.0-0.2) X10*3/uL Abs Immat Gran (auto) (0.00-0.03) X10*3/uL Absolute Neuts (auto) (2.0-8.3) x10*3/uL Absolute Nucleated RBC (0.0-0.012) X10*3/uL Nucleated RBC % (auto) (0.0-0.2) /100WBC Sodium 137 (135-145) mmol/L Potassium 4.3 (3.3-5.1) mmol/L Chloride 105 (96-108) mmol/L Carbon Dioxide 25 (22-29) mmol/L Anion Gap 11 L (12-20) BUN 13 (9-16) mg/dL Creatinine 1.39 (0.5-1.4) mg/dL Estim Creat Clear Calc 74.7 Estimated GFR 54 POC Glucose (60-115) mg/dL Random Glucose 229 H D (60-115) mg/dL Calcium 8.6 D (8.4-10.2) mg/dL Magnesium 2.0 (1.6-2.6) mg/dL Total Bilirubin 0.2 (0.0-1.0) mg/dL Direct Bilirubin < 0.2 (0.0-0.5) mg/dL AST 18 (5-37) U/L ALT 27 (0-40) U/L Alkaline Phosphatase 130 H (39-117) U/L Total Protein 6.9 (6.5-8.0) g/dL Albumin 3.6 (3.5-5.0) g/dL Urine Color Urine Appearance Urine pH (5.0-8.0) Ur Specific [place] (1.005-1.025) Urine Protein (NEG-TRACE) MG/DL Urine Glucose (UA) (NEG) MG/DL Urine Ketones (NEG) MG/DL Urine Blood (NEG) Urine Nitrite (NEG) Ur Leukocyte Esterase (NEG) Urine Opiates Screen (Not Detect) Urine Fentanyl Screen (Not Detect) Ur Barbiturates Screen (Not Detect) Valproic Acid 3.4 L (50.0-100.0) mcg/mL Ur Phencyclidine Scrn (Not Detect) Ur Amphetamines Screen (Not Detect) U Benzodiazepines Scrn (Not Detect) Urine Cocaine Screen (Not Detect) U Marijuana (THC) Screen (Not Detect) Ethyl Alcohol < 10 mg/dL COVID-19 (JACOB) (Negative) COVID-19 Clin Com 01/13/22 01/13/22 Range/Units 03:34 03:34 WBC (4.8-10.8) X10*3/uL RBC (4.60-5.80) X10*6/uL Hgb (14.0-18.0) g/dl Hct (42.0-52.0) % MCV (80.0-98.0) fL MCH (27.0-33.0) pg MCHC (31.0-36.0) g/dl RDW (11.0-16.0) % Plt Count (160-400) X10*3/uL MPV (9.4-12.4) fL Immature Gran % (Auto) (0.0-0.4) % Neut % (Auto) (45-73) % Lymph % (Auto) (20-40) % [place] % (Auto) (2-11) % Eos % (Auto) (0-4) % Baso % (Auto) (0-2) % Lymph # (Auto) (1.2-4.9) X10*3/uL [place] # (Auto) (0.1-1.2) X10*3/uL Eos # (Auto) (0.0-0.4) X10*3/uL Baso # (Auto) (0.0-0.2) X10*3/uL Abs Immat Gran (auto) (0.00-0.03) X10*3/uL Absolute Neuts (auto) (2.0-8.3) x10*3/uL Absolute Nucleated RBC (0.0-0.012) X10*3/uL Nucleated RBC % (auto) (0.0-0.2) /100WBC Sodium (135-145) mmol/L Potassium (3.3-5.1) mmol/L Chloride (96-108) mmol/L Carbon Dioxide (22-29) mmol/L Anion Gap (12-20) BUN (9-16) mg/dL Creatinine (0.5-1.4) mg/dL Estim Creat Clear Calc Estimated GFR POC Glucose (60-115) mg/dL Random Glucose (60-115) mg/dL Calcium (8.4-10.2) mg/dL Magnesium (1.6-2.6) mg/dL Total Bilirubin (0.0-1.0) mg/dL Direct Bilirubin (0.0-0.5) mg/dL AST (5-37) U/L ALT (0-40) U/L Alkaline Phosphatase (39-117) U/L Total Protein (6.5-8.0) g/dL Albumin (3.5-5.0) g/dL Urine Color YELLOW Urine Appearance CLEAR Urine pH 6.0 (5.0-8.0) Ur Specific [place] 1.025 (1.005-1.025) Urine Protein NEG (NEG-TRACE) MG/DL Urine Glucose (UA) 500 H (NEG) MG/DL Urine Ketones 5 (NEG) MG/DL Urine Blood NEG (NEG) Urine Nitrite NEG (NEG) Ur Leukocyte Esterase NEG (NEG) Urine Opiates Screen Not Detected (Not Detect) Urine Fentanyl Screen Not Detected (Not Detect) Ur Barbiturates Screen Not Detected (Not Detect) Valproic Acid (50.0-100.0) mcg/mL Ur Phencyclidine Scrn Not Detected (Not Detect) Ur Amphetamines Screen Not Detected (Not Detect) U Benzodiazepines Scrn Not Detected (Not Detect) Urine Cocaine Screen POSITIVE H (Not Detect) U Marijuana (THC) Screen POSITIVE H (Not Detect) Ethyl Alcohol mg/dL COVID-19 (JACOB) (Negative) COVID-19 Clin Com Discharge Plan Discharge Clinical Impression: Suicide ideation Patient Disposition: Still a Patient Prescriptions: No Action (DME) FreeStyle Lite Strips Strip See Rx Instructions .Route Qty: 100 0RF Rx Instructions: Test 3 times daily ibuprofen 400 mg tablet 1 tab PO TID nicotine 21 mg/24 hr Patch 24 Hour 21 mg transdermal DAILY Qty: 30 0RF divalproex 500 mg Tablet,Delayed Release (Dr/Ec) 500 mg PO TID Qty: 90 0RF olanzapine 20 mg tablet 20 mg PO BEDTIME Qty: 30 0RF insulin lispro [Humalog U-100 Insulin] 100 unit/mL Solution See Protocol subcut QID Qty: 10 0RF Protocol: Insulin Correction Scale Less than or equal to 110 ---- Give (units): 0 111 to 150 Give (units): 0 151 to 200 Give (units): 2 201 to 250 Give (units): 4 251 to 300 Give (units): 6 301 to 350 Give (units): 8 Greater than 350 Give (units): 10 Call MD if Blood Glucose > : 350 trazodone 150 mg tablet 1 tab PO BEDTIME Qty: 30 0RF (DME) blood glucose control, low Solution See Rx Instructions .ROUTE .MEDSUPPLY Qty: 1 Rx Instructions: As directed ([facility] [place]) pen needle, diabetic [1st Tier Unifine Pentips] 31 gauge x 5/16 needle See Rx Instructions .ROUTE .MEDSUPPLY Qty: 100 0RF Rx Instructions: Use Daily (DME) FreeStyle Antonia 2 Sensor Kit See Rx Instructions .ROUTE .MEDSUPPLY Qty: 2 11RF Rx Instructions: Once every 14 days (DME) FreeStyle Antonia 2 [place] Misc See Rx Instructions .ROUTE .MEDSUPPLY Qty: 1 0RF Rx Instructions: As directed
[2022-01-12 22:24] LABS: Glucose, Whole Blood 222 mg/dL (60-115)
--- NOTE | 2022-01-12 22:40 | PC.NURSE ---
[facility] referral completed/confirmed/pending ETA, no distress observed/reported, compliant with lab draw, patient was placed on section 12 A by the provider
[2022-01-12 22:45] LABS: MANUAL DIFF FLAG NO
[2022-01-12 22:48] LABS: Basophils Absolute Auto 0.1 X10*3/uL (0.0-0.2); Basophils Percent Auto 0.9 % (0-2); Eosinophils Absolute Auto 0.2 X10*3/uL (0.0-0.4); Eosinophils Percent Auto 3.5 % (0-4); Hematocrit 38.6 % (42.0-52.0); Hemoglobin 12.7 g/dl (14.0-18.0); Imm Gran Abs Auto 0.01 X10*3/uL (0.00-0.03); Imm Gran Pct Auto 0.2 % (0.0-0.4); Lymphocytes Absolute Auto 2.6 X10*3/uL (1.2-4.9); Lymphocytes Percent Auto 45.8 % (20-40); Mean Corpuscular HGB Conc 32.9 g/dl (31.0-36.0); Mean Corpuscular Hemoglobin 29.2 pg (27.0-33.0); Mean Corpuscular Volume 88.7 fL (80.0-98.0); Mean Platelet Volume 10.6 fL (9.4-12.4); Monocytes Absolute Auto 0.7 X10*3/uL (0.1-1.2); Monocytes Percent Auto 11.4 % (2-11); Neutrophils Absolute Auto 2.2 x10*3/uL (2.0-8.3); Neutrophils Percent Auto 38.2 % (45-73); Platelet Count 224 X10*3/uL (160-400); Red Blood Count 4.35 X10*6/uL (4.60-5.80); Red Cell Distribution Width 12.9 % (11.0-16.0); White Blood Count 5.7 X10*3/uL (4.8-10.8)
[2022-01-12 22:49] LABS: COVID-19 Test Negative (Negative)
[2022-01-12 23:04] LABS: Ethanol < 10 mg/dL
[2022-01-12 23:05] LABS: Anion Gap 11 (12-20); Blood Urea Nitrogen 13 mg/dL (9-16); Calcium 8.6 mg/dL (8.4-10.2); Carbon Dioxide 25 mmol/L (22-29); Chloride 105 mmol/L (96-108); Creatinine Clr Calc Pharmacy 74.7; Estimated Glomerular Filt Rate 54; Glucose Random 229 mg/dL (60-115); Potassium 4.3 mmol/L (3.3-5.1); Sodium 137 mmol/L (135-145)
[2022-01-12 23:06] LABS: Alanine Aminotransferase 27 U/L (0-40); Albumin Level 3.6 g/dL (3.5-5.0); Alkaline Phosphatase 130 U/L (39-117); Aspartate Amino Transferase 18 U/L (5-37); Bilirubin Direct < 0.2 mg/dL (0.0-0.5); Bilirubin Total 0.2 mg/dL (0.0-1.0); Total Protein 6.9 g/dL (6.5-8.0)
[2022-01-12 23:10] LABS: Valproate 3.4 mcg/mL (50.0-100.0)
[2022-01-13 03:43] LABS: Appearance Urine CLEAR; Color Urine YELLOW; Glucose Urine UA 500 MG/DL (NEG); Leukocyte Esterase Urine NEG (NEG); Nitrite Urine NEG (NEG); Specific Gravity - Urine 1.025 (1.005-1.025); Urine Blood NEG (NEG); Urine Ketones 5 MG/DL (NEG); Urine Protein NEG (NEG-TRACE)
[2022-01-13 04:00] LABS: Amphetamine Screen Urine Not Detected (Not Detect); Barbiturates, Urine Not Detected (Not Detect); Benzodiazepines Screen Urine Not Detected (Not Detect); Cannabinoid Screen Urine POSITIVE (Not Detect); Cocaine Screen Urine POSITIVE (Not Detect); Fentanyl, urine Not Detected (Not Detect); Opiate Screen Urine Not Detected (Not Detect); Phencyclidine Screen Urine Not Detected (Not Detect)
--- NOTE | 2022-01-13 05:50 | PC.NURSE ---
Patient slept through the night, no distress observed/reported, med rec completed/pending provider's approval, patient was off his medication since he was discharged from on 01/07/22, patient was assessed by [facility], disposition pending, EDGARD F/U in the morning, behavior non concerning, will continue to monitor.
[2022-01-13 07:03] LABS: Glucose, Whole Blood 215 mg/dL (60-115)
[2022-01-13 07:30] VITALS: BP 116/65; PULSE 63; RESP 14; TEMP 36.4; O2SAT 97
[2022-01-13 14:07] LABS: Glucose, Whole Blood 188 mg/dL (60-115)
== END 2022-01-13 15:03 | disposition home or self-care (01) ==
PROVIDERS: Emergency Provider Emergency Medicine; PCP Internal Medicine
DX: R44.0 Auditory hallucinations (principal); R45.851 Suicidal ideations; F14.90 Cocaine use, unspecified, uncomplicated; F17.210 Nicotine dependence, cigarettes, uncomplicated; Z71.6 Tobacco abuse counseling; Z79.899 Other long term (current) drug therapy; Z20.822 Contact with and (suspected) exposure to COVID-19
CPT/HCPCS: 36415; 80048; 80076; 80164; 80307; 81003; 82077; 82947; 83735; 85025; 87635; 99284

== ENCOUNTER 2022-01-13 19:12 | Emergency (ER) | payer OTHER, SELFPAY ==
--- NOTE | ~2022-01-13 | XR_ITS ---
EXAMINATION: XR CHEST CLINICAL INFORMATION: SOB. COMPARISON: Chest 09/26/2021 TECHNIQUE: 2 views of the chest were obtained. FINDINGS: No significant abnormality is noted involving the heart, lungs, mediastinum, bony thorax or soft tissues. XR/XR chest 2V IMPRESSION: Unremarkable chest examination.
[2022-01-13 19:39] VITALS: BP 115/71; PULSE 85; RESP 28; TEMP 37.1; O2SAT 96; BMI 37.6
--- NOTE | 2022-01-13 19:48 | PC.NURSE ---
Pt refused ECG in triage. Isai SULLIVAN educated pt on reasons why he should have one since he had SOB and chest pain, but pt refused. Isai SULLIVAN told pt to tell staff if he has increased chest pain.
[2022-01-13 19:54] LABS: MANUAL DIFF FLAG NO
[2022-01-13 19:56] LABS: Basophils Absolute Auto 0.1 X10*3/uL (0.0-0.2); Basophils Percent Auto 0.9 % (0-2); Eosinophils Absolute Auto 0.2 X10*3/uL (0.0-0.4); Eosinophils Percent Auto 2.6 % (0-4); Hematocrit 39.5 % (42.0-52.0); Hemoglobin 13.2 g/dl (14.0-18.0); Imm Gran Abs Auto 0.01 X10*3/uL (0.00-0.03); Imm Gran Pct Auto 0.2 % (0.0-0.4); Lymphocytes Absolute Auto 2.5 X10*3/uL (1.2-4.9); Lymphocytes Percent Auto 44.3 % (20-40); Mean Corpuscular HGB Conc 33.4 g/dl (31.0-36.0); Mean Corpuscular Hemoglobin 29.5 pg (27.0-33.0); Mean Corpuscular Volume 88.2 fL (80.0-98.0); Mean Platelet Volume 10.5 fL (9.4-12.4); Monocytes Absolute Auto 0.4 X10*3/uL (0.1-1.2); Monocytes Percent Auto 7.7 % (2-11); Neutrophils Absolute Auto 2.5 x10*3/uL (2.0-8.3); Neutrophils Percent Auto 44.3 % (45-73); Platelet Count 230 X10*3/uL (160-400); Red Blood Count 4.48 X10*6/uL (4.60-5.80); Red Cell Distribution Width 12.8 % (11.0-16.0); White Blood Count 5.7 X10*3/uL (4.8-10.8)
[2022-01-13 20:07] LABS: Ethanol < 10 mg/dL
[2022-01-13 20:10] LABS: Alanine Aminotransferase 26 U/L (0-40); Albumin Level 3.6 g/dL (3.5-5.0); Alkaline Phosphatase 109 U/L (39-117); Anion Gap 10 (12-20); Aspartate Amino Transferase 18 U/L (5-37); Bilirubin Total 0.4 mg/dL (0.0-1.0); Blood Urea Nitrogen 8 mg/dL (9-16); Calcium 8.7 mg/dL (8.4-10.2); Carbon Dioxide 27 mmol/L (22-29); Chloride 105 mmol/L (96-108); Creatinine Clr Calc Pharmacy 84.1; Estimated Glomerular Filt Rate > 60; Glucose Random 243 mg/dL (60-115); Potassium 4.1 mmol/L (3.3-5.1); Sodium 138 mmol/L (135-145); Total Protein 6.9 g/dL (6.5-8.0)
[2022-01-13 20:20] LABS: Troponin-I High Sensitivity < 3.5 ng/L (<3.5-35.0)
[2022-01-13 20:48] LABS: COVID-19 Test Negative (Negative)
--- NOTE | 2022-01-13 21:13 | ED_ITS ---
HPI - Psych General Chief Complaint: Psychiatric Symptoms Stated Complaint: SI/Seeking detox Time Seen by Provider: 01/13/22 20:48 Source: patient Mode of arrival: ambulatory Limitations: no limitations History of Present Illness HPI Narrative: Patient comes to the emergency room complaining of suicidal thoughts. Patient was discharged earlier this morning for the same complaint. Patient states he is suicidal, no plan. Patient had previously been drinking alcohol, using cocaine. Patient was told by his daughter that the patient is to get treatment before he has accepted back into his daughter's house. Today, patient states that he tried calling his daughter and she hung up on him. Patient states that now he is willing to get treatment and go to detox Related Data Home Medications Medication Instructions Recorded Confirmed blood glucose control, low #1 ea 06/14/20 08/29/21 ibuprofen 400 mg tablet 1 tab PO TID 12/24/21 01/13/22 Previous Rx's Medication Instructions Recorded flash glucose scanning reader #1 ea 11/28/20 (FreeStyle Antonia 2 [place]) flash glucose sensor (FreeStyle #2 ea 11/28/20 Antonia 2 Sensor) blood sugar diagnostic (FreeStyle #100 ea 08/01/21 Lite Strips) pen needle, diabetic 31 gauge x #100 ea 08/29/21 5/16 (1st Tier Unifine Pentips) divalproex 500 mg tablet,delayed 500 mg PO TID #90 tabs 01/07/22 release insulin lispro 100 unit/mL See Protocol subcut QID #10 mL 01/07/22 subcutaneous solution (Humalog U-100 Insulin) nicotine 21 mg/24 hr daily 21 mg transdermal DAILY #30 ea 01/07/22 transdermal patch olanzapine 20 mg tablet 20 mg PO BEDTIME #30 tabs 01/07/22 trazodone 150 mg tablet 1 tab PO BEDTIME #30 tabs 01/07/22 Allergies Allergy/AdvReac Type Severity Reaction Status Date / Time No Known Allergies Allergy Verified 12/24/21 19:36 Review of Systems Review of Systems: Constitutional : No Weight loss, No Fever, No Chills, No Night Sweats, No Fatigue, No Malaise ENT/Mouth : No Hearing loss, No Ear Pain, No Nasal Congestion, No Sinus Pain, No Hoarseness, No sore throat, No Rhinorrhea, No Swallowing Difficulty Eyes: No Eye Pain, No Swelling, No Redness, No Foreign Body, No Discharge, No Vision Changes Cardiovascular : No Chest Pain, No SOB, No Dyspnea on Exertion, No Orthopnea, No Edema, No Palpitations Respiratory : No Cough, No Sputum, No Wheezing, No Smoke Exposure, No Dyspnea Gastrointestinal : No Nausea, No Vomiting, No Diarrhea, No Constipation, No abdominal Pain, No Hematochezia, No Melena Genitourinary : no irregular bleeding, No Dysuria, No Urinary Frequency, No Hematuria, No Urinary Incontinence, No Urgency, No Flank Pain, No Urinary Flow Changes, No Hesitancy Musculoskeletal : No joint pain, No Myalgias, No Joint Swelling Skin : No Skin Lesions, No rash Neuro : No Weakness, No Numbness, No Paresthesias, No Loss of Consciousness, No Dizziness, No Headache Psych : No Anxiety/Panic, and complaining of depression, suicidal ideation without plan, no homicidal ideation Heme/Lymph: No Bruising, No Bleeding,No Lymphadenopathy Endocrine : No Polyuria, No Polydipsia, No Temperature Intolerance PMFSH Past Medical History Medical History Cataract Cocaine use disorder Depression HTN (hypertension) Hx of bipolar disorder Surgical History Hx of circumcision Hx of exploratory laparotomy Family History Family History Mother Diabetic acidosis, type II Father Diabetic acidosis, type II Social History Social History Household Members: None Housing: Homeless Are you a primary healthcare market consultant to a significant other at home: No Do you presently have visiting nurse or other home services: No Alcohol intake: never Patient Tobacco Use Status: Current everyday Tobacco user Tobacco use type: Cigarette Cigarette Packs Per Day: 0.5 Cigarettes Per Day: 10.0 Years Smoked: 30 e-Cigarette/Vaping Use: Never Used Second Hand Smoke Exposure: No Substance Use Type: Crack/Cocaine Advance Directives: No service: No Current occupational status: unemployed Current occupation: right handed Sexual orientation: Did not discuss. Cognitive needs: No Hearing needs: No Vision needs: No Physical Exam Vital Signs: Vital Signs: Last Vital Signs Temp 98.8 F 01/13/22 19:39 Pulse 85 01/13/22 19:39 Resp 28 H 01/13/22 19:39 BP 115/71 01/13/22 19:39 Pulse Ox 96 01/13/22 19:39 O2 Del Method 01/13/22 19:39 BMI result Body Mass Index 37.6 Const: Other: Appearance: Alert. Oriented X3. No acute distress. Eyes: Pupils equal, round and reactive to light. ENT: Pharynx normal. Neck: Normal inspection. Neck supple. No lymph nodes noted. No crepitus CVS: Normal heart rate and rhythm. Pulses normal. Normal S1 and S2 Respiratory: No respiratory distress. Breath sounds normal. No Wheezing. No rales Abdomen: Soft and nontender. No rigidity. No distention. Skin: Skin warm and dry. Normal skin color. Normal skin turgor. Extremities: No lower extremity edema. No Lacerations. No Rash Neuro: Oriented X 3. No motor deficit. No sensory deficit. Moving all extremities. No slurred speech. CN 2 through 12 grossly intact Psych: calm, cooperative, normal affect Course Course Course Narrative: Behavioral health for consult pending. Physician observation started at 21:15 [facility] - Psych Lab Data Result diagrams: 01/13/22 19:50 01/13/22 19:50 Labs: Lab Results 01/13/22 01/13/22 01/13/22 Range/Units 19:50 19:50 19:50 WBC 5.7 (4.8-10.8) X10*3/uL RBC 4.48 L (4.60-5.80) X10*6/uL Hgb 13.2 L (14.0-18.0) g/dl Hct 39.5 L (42.0-52.0) % MCV 88.2 (80.0-98.0) fL MCH 29.5 (27.0-33.0) pg MCHC 33.4 (31.0-36.0) g/dl RDW 12.8 (11.0-16.0) % Plt Count 230 (160-400) X10*3/uL MPV 10.5 (9.4-12.4) fL Immature Gran % (Auto) 0.2 (0.0-0.4) % Neut % (Auto) 44.3 L (45-73) % Lymph % (Auto) 44.3 H (20-40) % [place] % (Auto) 7.7 (2-11) % Eos % (Auto) 2.6 (0-4) % Baso % (Auto) 0.9 (0-2) % Lymph # (Auto) 2.5 (1.2-4.9) X10*3/uL [place] # (Auto) 0.4 (0.1-1.2) X10*3/uL Eos # (Auto) 0.2 (0.0-0.4) X10*3/uL Baso # (Auto) 0.1 (0.0-0.2) X10*3/uL Abs Immat Gran (auto) 0.01 (0.00-0.03) X10*3/uL Absolute Neuts (auto) 2.5 (2.0-8.3) x10*3/uL Absolute Nucleated RBC 0.000 (0.0-0.012) X10*3/uL Nucleated RBC % (auto) 0.0 (0.0-0.2) /100WBC Sodium 138 (135-145) mmol/L Potassium 4.1 (3.3-5.1) mmol/L Chloride 105 (96-108) mmol/L Carbon Dioxide 27 (22-29) mmol/L Anion Gap 10 L (12-20) BUN 8 L (9-16) mg/dL Creatinine 1.21 (0.5-1.4) mg/dL Estim Creat Clear Calc 84.1 Estimated GFR > 60 Random Glucose 243 H (60-115) mg/dL Calcium 8.7 (8.4-10.2) mg/dL Total Bilirubin 0.4 (0.0-1.0) mg/dL AST 18 (5-37) U/L ALT 26 (0-40) U/L Alkaline Phosphatase 109 (39-117) U/L Troponin I High Sens (<3.5-35.0) ng/L Total Protein 6.9 (6.5-8.0) g/dL Albumin 3.6 (3.5-5.0) g/dL Ethyl Alcohol < 10 mg/dL COVID-19 (JACOB) (Negative) COVID-19 Clin Com 01/13/22 01/13/22 Range/Units 19:50 20:26 WBC (4.8-10.8) X10*3/uL RBC (4.60-5.80) X10*6/uL Hgb (14.0-18.0) g/dl Hct (42.0-52.0) % MCV (80.0-98.0) fL MCH (27.0-33.0) pg MCHC (31.0-36.0) g/dl RDW (11.0-16.0) % Plt Count (160-400) X10*3/uL MPV (9.4-12.4) fL Immature Gran % (Auto) (0.0-0.4) % Neut % (Auto) (45-73) % Lymph % (Auto) (20-40) % [place] % (Auto) (2-11) % Eos % (Auto) (0-4) % Baso % (Auto) (0-2) % Lymph # (Auto) (1.2-4.9) X10*3/uL Burt # (Auto) (0.1-1.2) X10*3/uL Eos # (Auto) (0.0-0.4) X10*3/uL Baso # (Auto) (0.0-0.2) X10*3/uL Abs Immat Gran (auto) (0.00-0.03) X10*3/uL Absolute Neuts (auto) (2.0-8.3) x10*3/uL Absolute Nucleated RBC (0.0-0.012) X10*3/uL Nucleated RBC % (auto) (0.0-0.2) /100WBC Sodium (135-145) mmol/L Potassium (3.3-5.1) mmol/L Chloride (96-108) mmol/L Carbon Dioxide (22-29) mmol/L Anion Gap (12-20) BUN (9-16) mg/dL Creatinine (0.5-1.4) mg/dL Estim Creat Clear Calc Estimated GFR Random Glucose (60-115) mg/dL Calcium (8.4-10.2) mg/dL Total Bilirubin (0.0-1.0) mg/dL AST (5-37) U/L ALT (0-40) U/L Alkaline Phosphatase (39-117) U/L Troponin I High Sens < 3.5 (<3.5-35.0) ng/L Total Protein (6.5-8.0) g/dL Albumin (3.5-5.0) g/dL Ethyl Alcohol mg/dL COVID-19 (JACOB) Negative (Negative) COVID-19 Clin Com See Note Discharge Plan Discharge Clinical Impression: Suicidal ideation Patient Disposition: Still a Patient Prescriptions: No Action (DME) FreeStyle Lite Strips Strip See Rx Instructions .Route Qty: 100 0RF Rx Instructions: Test 3 times daily ibuprofen 400 mg tablet 1 tab PO TID nicotine 21 mg/24 hr Patch 24 Hour 21 mg transdermal DAILY Qty: 30 0RF divalproex 500 mg Tablet,Delayed Release (Dr/Ec) 500 mg PO TID Qty: 90 0RF olanzapine 20 mg tablet 20 mg PO BEDTIME Qty: 30 0RF insulin lispro [Humalog U-100 Insulin] 100 unit/mL Solution See Protocol subcut QID Qty: 10 0RF Protocol: Insulin Correction Scale Less than or equal to 110 ---- Give (units): 0 111 to 150 Give (units): 0 151 to 200 Give (units): 2 201 to 250 Give (units): 4 251 to 300 Give (units): 6 301 to 350 Give (units): 8 Greater than 350 Give (units): 10 Call MD if Blood Glucose > : 350 trazodone 150 mg tablet 1 tab PO BEDTIME Qty: 30 0RF (DME) blood glucose control, low Solution See Rx Instructions .ROUTE .MEDSUPPLY Qty: 1 Rx Instructions: As directed (DME) pen needle, diabetic [1st Tier Unifine Pentips] 31 gauge x 5/16 needle See Rx Instructions .ROUTE .MEDSUPPLY Qty: 100 0RF Rx Instructions: Use Daily (DME) FreeStyle Antonia 2 Sensor Kit See Rx Instructions .ROUTE .MEDSUPPLY Qty: 2 11RF Rx Instructions: Once every 14 days (DME) FreeStyle Antonia 2 [place] Misc See Rx Instructions .ROUTE .MEDSUPPLY Qty: 1 0RF Rx Instructions: As directed
--- NOTE | 2022-01-14 | ECG_ITS ---
Test Reason : CP Blood Pressure : / mmHG Vent. Rate : 064 BPM Atrial Rate : 064 BPM P-R Int : 164 ms QRS Dur : 084 ms QT Int : 396 ms P-R-T Axes : 028 -27 023 degrees QTc Int : 408 ms Normal sinus rhythm Septal infarct (cited on or before 26-SEP-2021) Abnormal ECG When compared with ECG of 26-DEC-2021 11:52, No significant change was found Referred By: Bettie Oakley Electronically Signed By:YVONNE AARON MD
--- NOTE | 2022-01-14 07:38 | PC.NURSE ---
Patient slept through the night, no distress observed/reported, behavior non concerning, [facility] referral completed/confirmed/pending ETA, med rec completed/pending provider's approval, VSS, will continue to monitor.
[2022-01-14 09:29] LABS: Glucose, Whole Blood 210 mg/dL (60-115)
--- NOTE | 2022-01-14 10:22 | MHC.CARE ---
Pt is a 51 y/o Turkish speaking, male who is previously known to the CARE Team through ED visits and a recent in patient stay in November/December of this year.? Yesterday, pt presented to the ED endorsing SI and AH.? Pt was seen by N with a disposition of discharge as he did not meet a higher level of care.? Pt was discharged and later that day self-presented endorsing SI and AH.? Upon arrival pt refused an EKG and continued to do so after Nursing staff educated him on the need for such a procedure.? Pt has also continued to refuse to provide a urine sample.? Pt has been medically cleared and is being assessed by the CARE Team to determine appropriate treatment recommendations.? Pt has a hx of one inpatient hospitalization at this facility and multiple detox admissions while in this area and multiple previous detox admissions while in the [facility]. He has a hx of medication noncompliance, presently he is not taking his medications as prescribed nor has he picked up his prescription.? Pt stated that he was ?too busy? to do so.? He reports being off his medications since his discharge on 01/07/22.? PT has a hx of not following up with appointments, providers etc upon discharge.? Prior documented hx of substance use, no known suicide attempts.? Past documented hx of MDD (major depressive disorder), recurrent, severe, with psychosis, Cocaine use disorder, moderate, dependence, and Opioid use disorder, moderate, dependence. Pt is alert and oriented x4 and is assessed for risk in his room in the behavioral health pod of the ED.? Pt is dressed in hospital attire and appears his stated age.? Pt is moderately involved in the assessment, and appears to be halfheartedly help seeking.? Pt stated that he believes he needs a ?Dual diagnosis program to work on my mind and drug use.?? CARE Team explains to pt that his refusal to participate in an EKG or provide urine has placed barriers to his being considered for such programs.? Pt was advised that if he was serious about pursuing admission to a dual diagnosis program, he would have to provide a urine sample and agree to an EKG.? Pt advises CARE Team that he has a drink pitcher at bedside with urine in it.? Pt was advised clean urine is necessary and is provided with a cup.? Pt?s eye contact is minimal, his speech is unremarkable.? He reports fluctuating sleep and appetite disturbances with some days being ?Better? than others.? His affect is flat.? He does not appear delusional or experiencing symptoms of psychosis.? He endorses AH stating that they are ?angry voices? telling him he is ?useless? and ?worthless?.? The AH are not command in nature, there are two, perhaps three voices, one being his step Mother?s, the other being one he does not recognize which he says is ?Spooky? and ?frightening.?? He reports AH at his baseline and when on medication though he stated that when he is on medication, the voices are not ?as bad.?? He denies VH, HI, SI, , and self-harm urges.? He explained that he wants to but does not wish to actively pursue .? He stated that should he , he would not be upset.? Insight, judgement, concentration, and impulse control appear poor.? Memory appears good. Collateral information was received from [facility], pt?s nurse, and the Social Work Team. Pt does not appear to be a risk to himself or others, nor does he meet inpatient level of CARE.? Pt has been referred to the Recovery team for EATs placement.? This disposition was discussed with and agreed upon by nurses' registry director of behavioral health JC Tracey.
[2022-01-14 10:32] LABS: Barbiturates, Urine Not Detected (Not Detect); Benzodiazepines Screen Urine Not Detected (Not Detect); Cannabinoid Screen Urine POSITIVE (Not Detect); Fentanyl, urine Not Detected (Not Detect); Opiate Screen Urine Not Detected (Not Detect); Phencyclidine Screen Urine Not Detected (Not Detect)
[2022-01-14 10:33] LABS: Amphetamine Screen Urine Not Detected (Not Detect); Cocaine Screen Urine POSITIVE (Not Detect)
--- NOTE | 2022-01-14 10:46 | MHC.RECOVRN ---
Pt agreeable to EATS [facility]. Pt is unable to go to [facility] due to having a contract for threatening staff until Jun 22, 2022. Pt referred to N as well as [facility]. Awaiting review.
--- NOTE | 2022-01-14 13:18 | MHC.RECOVRN ---
[facility] does not have bed availability due to lack of EATS clinician.
--- NOTE | 2022-01-14 15:15 | MHC.RECOVRN ---
T/w has called [facility] numerous times throughout the day as well as called and emailed intake supervisors Rachael Laureano and Jaydon Maldonado. Have not received a return call or email regarding bed availability. CARE Team aware.
--- NOTE | 2022-01-15 06:20 | PC.NURSE ---
Patient slept through the night, no distress observed/reported, behavior non concerning, med rec completed/pending provider's approval, disposition per care team is voluntary EATS bed search, VSS, will continue to monitor.
[2022-01-15 06:56] VITALS: BP 117/74; PULSE 66; RESP 16; TEMP 36.2; O2SAT 97
[2022-01-15 06:57] LABS: Glucose, Whole Blood 186 mg/dL (60-115)
--- NOTE | 2022-01-15 08:45 | PC.NURSE ---
pt received in bed, sleeping, no concerning behaviors. will continue to monitor
[2022-01-15 10:20] VITALS: BP 131/90; PULSE 74; RESP 20; TEMP 36.2; O2SAT 97
--- NOTE | 2022-01-15 10:32 | PC.NURSE ---
pt is awake and walking about the unit. calm, appears in no distress. asks for saltines and water, now eating/watching tv in common area. Seen by CARE team. Awaiting bed search outcome.
--- NOTE | 2022-01-15 11:17 | MHC.RECOVSUP ---
? Reason for consult:Recovery Support o Current location:[facility] o Identified substance use concern:Cocaine,ETOH - Seeking ATS (detox) - Support ? Intervention: o ATS bed search started/completed/in process o Community resources provided o Harm reduction discussion ? Plan: o Referral to [facility] o Bed search in progress to o Follow up tomorrow o Patient to follow up with [facility] after discharge ? Additional information:Patient seeking an EATS bed. Patient not allowed at several detox facilities, No bed availability, gave patient community resources.
--- NOTE | 2022-01-15 12:11 | MHC.CARE ---
Recovery team conducted an EATS bedsearch yesterday and this morning.? At this time, the bedsearch has been exhausted.? N was successfully contacted and reported that they do not have any bed availability at [facility]. [employer]er [employer]or attempted a second EATs bedsearch after Recovery & CARE exhausted their bedsearch.? His bedsearch met with the same results.? Recovery provided him with a list of facilities to follow up on. CARE Team meets with pt to reassess level of risk. Pt is alert and oriented x4 and is assessed for risk in his room in the behavioral health pod of the ED.? Pt is moderately involved in the assessment.? His affect is flat.? He does not appear delusional or experiencing symptoms of psychosis.? He endorses AH stating that they are ?angry voices? telling him he is ?useless? and ?worthless? as they were yesterday.? He denies VH, HI, SI, , and self-harm urges.? He explained that he wants to but has no intent or plan to attempt to complete suicide.? Insight, judgement, concentration, and impulse control appear poor.? Memory appears good. Pt does not appear to be a risk to himself or others, nor does he meet inpatient level of CARE.? This disposition was discussed with and agreed upon by dramatic director of behavioral health JC Tracey, ED Provider Ruth, and Pt?s nurse RN Rishabh.
== END 2022-01-15 12:24 | disposition home or self-care (01) ==
PROVIDERS: Emergency Provider Emergency Medicine
DX: F33.1 Major depressive disorder, recurrent, moderate (principal); R45.851 Suicidal ideations; F17.210 Nicotine dependence, cigarettes, uncomplicated; Z71.6 Tobacco abuse counseling; Z20.822 Contact with and (suspected) exposure to COVID-19; Z79.899 Other long term (current) drug therapy
CPT/HCPCS: 36415; 71046; 80053; 80307; 82077; 82947; 84484; 85025; 87635; 93005; 99284

== ENCOUNTER 2022-12-17 03:11 | Emergency (ER) | payer OTHER, SELFPAY ==
[2022-12-17 03:32] LABS: Glucose, Whole Blood 79 mg/dL (60-115)
[2022-12-17 03:33] VITALS: BP 150/79; PULSE 65; PULSE 95; RESP 12; TEMP 36.9; O2SAT 96; BMI 30.4
--- NOTE | 2022-12-17 03:33 | ED.GENADULT ---
HPI - General Adult General Chief complaint: ETOH/Substance Use Stated complaint: FOUND IN ROAD BY PD HALLUCINATING ALIENS,?DRUG USE Time Seen by Provider: 12/17/22 03:32 Source: patient and EMS Mode of arrival: EMS Limitations: no limitations History of Present Illness HPI narrative: 52-year-old male came in by ambulance after was found wandering in the street. Patient was found in the street in a erratic manner and paranoid, admitted to use drugs, previous history of ED visits patient is positive for cocaine and marijuana. No sign of trauma. Related Data Home Medications Medication Instructions Recorded Confirmed ibuprofen 400 mg tablet 1 tab PO TID 12/24/21 01/13/22 Previous Rx's Medication Instructions Recorded divalproex 500 mg tablet,delayed 500 mg PO TID #90 tabs 01/07/22 release insulin lispro 100 unit/mL See Protocol subcut QID #10 mL 01/07/22 subcutaneous solution (Humalog U-100 Insulin) nicotine 21 mg/24 hr daily 21 mg transdermal DAILY #30 ea 01/07/22 transdermal patch olanzapine 20 mg tablet 20 mg PO BEDTIME #30 tabs 01/07/22 trazodone 150 mg tablet 1 tab PO BEDTIME #30 tabs 01/07/22 polymyxin B sulfate 10,000 1 drp ophthalmic (eye) Q3H 7 days 12/08/22 unit-trimethoprim 1 mg/mL eye drops #10 mL Allergies Allergy/AdvReac Type Severity Reaction Status Date / Time No Known Allergies Allergy Verified 12/08/22 09:29 Review of Systems Review of Systems: Yes Unobtainable due to mental status PMFSH Past Medical History Medical History Cataract Cocaine use disorder Depression Diabetes Diabetes mellitus Diabetes mellitus with coincident hypertension Family history of high cholesterol Family history of thyroid disease HLD (hyperlipidemia) HTN (hypertension) HTN (hypertension) Hx of bipolar disorder Obesity Psychosis Skin rash Sleep apnea syndrome T2DM (type 2 diabetes mellitus) Vitamin D deficiency Surgical History Hx of circumcision Hx of exploratory laparotomy Family History Family History Mother Diabetic acidosis, type II Father Diabetic acidosis, type II Social History Social History Household Members: None Housing: Homeless Are you a primary certified social workers in health care to a significant other at home: No Do you presently have visiting nurse or other home services: No Alcohol intake: unknown Patient Tobacco Use Status: Current everyday Tobacco user Tobacco use type: Cigarette Cigarette Packs Per Day: 0.5 Cigarettes Per Day: 10.0 Years Smoked: 30 Smoked in Last 30 Days: No e-Cigarette/Vaping Use: Never Used Second Hand Smoke Exposure: No Use of substances other than those prescribed or required for medical reasons: Unknown Substance Use Type: Crack/Cocaine Advance Directives: No Advance Directives Information Provided: Yes service: No Current occupational status: unemployed Current occupation: right handed Sexual orientation: Did not discuss. Cognitive needs: No Hearing needs: No Vision needs: No Physical Exam ED Vital Signs: Vital Signs - 24 hr 12/17/22 03:33 12/17/22 05:57 Temperature 98.5 F Pulse Rate 95 58 Respiratory Rate 12 20 Blood Pressure 150/79 H 164/71 H Pulse Oximetry 96 95 Oxygen Delivery Method Room Air Room Air BMI result Body Mass Index 30.4 Vital signs have been reviewed as appeared to be correct. Blood pressure normal. Heart rate normal. Respiration rate normal. Temperature normal. Oxygen saturation normal. Appearance: Alert. Response to verbal stimuli, unclear speech.. No acute distress. Head: Normal external exam. Normocephalic. Atraumatic. No Orozco signs noted. No raccoon eyes noted Eyes: PERRLA. EOMI. Conjunctiva and sclera normal. Eyelids normal. ENT: TM's Normal. Pharynx normal. Uvula midline. Moist mucous membranes. No trismus noted. No drooling noted. No muffled voice noted. Neck: Normal inspection. Neck supple. FROM. No adenopathy. Thyroid Normal. No meningeal signs. No neck mass noted. CVS: Normal heart rate and rhythm. Heart sound normal. No murmurs noted. Pulses normal throughout. Respiratory: No respiratory distress. Painless inspiration. Breath sounds normal. No wheezes/rales/rhonchi noted. Chest nontender. No accessory muscle usage noted or decreased air movement noted. Abdomen: Soft and nontender. Bowel sounds normal in all 4 quadrants. No distention noted. No organomegaly noted. No visible injury noted. Back: No CVA tenderness. Full range of motion noted. Skin: Skin warm and dry. Normal skin color. Normal skin turgor. No rashes/lesions/lacerations noted. Extremities: No lower extremity edema. Extremities exhibit normal range of motion. Extremities nontender. Neuro: Cranial nerve exam: II-XII are grossly intact No motor deficit. No sensory deficit. Reflexes normal. Course Course Course Narrative: Patient is sleeping, await for the patient to wake up and be re-evaluated may need care team consultation. Medical Decision Making Differential Diagnosis Differential Diagnoses: The differential diagnosis associated with the presentation includes (Substance abuse, acute psychosis.) Lab Data Labs: Lab Results 12/17/22 Range/Units 03:26 POC Glucose 79 (60-115) mg/dL Discharge Plan Discharge Clinical Impression: Substance abuse Patient Disposition: Still a Patient Prescriptions: No Action ibuprofen 400 mg tablet 1 tab PO TID nicotine 21 mg/24 hr Patch 24 Hour 21 mg transdermal DAILY Qty: 30 0RF divalproex 500 mg Tablet,Delayed Release (Dr/Ec) 500 mg PO TID Qty: 90 0RF olanzapine 20 mg tablet 20 mg PO BEDTIME Qty: 30 0RF insulin lispro [Humalog U-100 Insulin] 100 unit/mL Solution See Protocol subcut QID Qty: 10 0RF Protocol: Insulin Correction Scale Less than or equal to 110 ---- Give (units): 0 111 to 150 Give (units): 0 151 to 200 Give (units): 2 201 to 250 Give (units): 4 251 to 300 Give (units): 6 301 to 350 Give (units): 8 Greater than 350 Give (units): 10 Call MD if Blood Glucose > : 350 trazodone 150 mg tablet 1 tab PO BEDTIME Qty: 30 0RF polymyxin B sulf-trimethoprim 10,000 unit- 1 mg/mL drops 1 drp ophthalmic (eye) Q3H 7 Days Qty: 10 0RF Rx Instructions: while awake; do not exceed 6 doses in 24 hours
--- NOTE | 2022-12-17 03:45 | PC.NURSE ---
pt unable to answer questions at this time
[2022-12-17 05:57] VITALS: BP 164/71; PULSE 58; RESP 20; O2SAT 95
--- NOTE | 2022-12-17 10:25 | MHC.EDTECH ---
this pct attempted to take vitals on pt and pt refused stating nobody is doing anything to him and to get out of his room. RN AWARE
== END 2022-12-17 11:17 | disposition home or self-care (01) ==
PROVIDERS: Emergency Provider Emergency Medicine Emergency Medical Services
DX: F19.10 Other psychoactive substance abuse, uncomplicated (principal); E11.9 Type 2 diabetes mellitus without complications; F17.210 Nicotine dependence, cigarettes, uncomplicated; F11.20 Opioid dependence, uncomplicated; F14.20 Cocaine dependence, uncomplicated; Z79.4 Long term (current) use of insulin; Z79.899 Other long term (current) drug therapy
CPT/HCPCS: 82947; 99284